=== PATIENT | female | born 1980 | race Hispanic/Latino ===

== ENCOUNTER 2018-08-31 20:32 | Emergency (ER) | payer OTHER, SELFPAY ==
--- OUTSIDE RECORDS SUMMARY | 2018-08-31 20:35 | XMS REPORT | Clinical Summary ---
:1980 Author Organization [facility] Address [address] [place] [address] Care Team Providers Name Role Phone Epifanio Brooks DO Primary Care Provider Allergies No Known Allergies Medications Medication Sig Dispensed Refills Start Date End Date Status levonorgestrel 1 each by 0 07/22/20 Discontinued (MIRENA) 20 mcg/24 intrauterine 18 hr (5 years) IUD route once. Active Problems Not on file Encounters Date Type Specialty Care Team Description 07/22/2018 Office Visit Obstetrics and Mery García Encounter for IUD Gynecology MD Oniel removal (Primary Dx) 12/17/2017 Office Visit Obstetrics Mery Carrasquillo Encounter for IUD Gynecology MD Oniel removal and reinsertion (Primary Dx) 11/17/2017 Telephone Obstetrics Augusta Dejesus Gynecology MS 11/17/2017 Telephone Obstetrics Augusta Dejesus Gynecology MS 11/09/2017 Office Visit Obstetrics Mery Carrasquillo Well woman exam Gynecology MD Oniel (Primary Dx) after 08/30/2017 Family History Medical History Relation Name Comments Hypertension Father Breast cancer Maternal Aunt Stomach cancer Maternal Aunt Bone cancer Maternal Aunt Relation Name Status Comments Father Maternal Aunt 32 yoa Maternal Aunt 53 yoa Maternal Aunt 65 yoa Social History Tobacco Use Types Packs/Day Years Used Date Never Smoker Smokeless Tobacco: Never Used Alcohol Use Drinks/Week oz/Week Comments No Sex Assigned at Date Recorded Not on file Job Start Date Occupation Industry Not on file Not on file Not on file Travel History Travel Start Travel End No recent travel history available. Last Filed Vital Signs Vital Sign Reading Time Taken Blood Pressure 112/74 07/22/2018 10:18 AM MOVIE MACHINE OPERATOR Pulse 65 07/22/2018 10:18 AM MOVIE MACHINE OPERATOR Temperature 37.1 C (98.8 F) 07/22/2018 10:18 AM MOVIE MACHINE OPERATOR Respiratory Rate - - Oxygen Saturation - - Inhaled Oxygen Concentration - - Weight 63 kg (139 lb) 07/22/2018 10:18 AM MOVIE MACHINE OPERATOR Height 157.5 cm (5' 2") 07/22/2018 10:18 AM MOVIE MACHINE OPERATOR Body Mass Index 25.42 07/22/2018 10:18 AM MOVIE MACHINE OPERATOR Plan of Treatment Health Maintenance Due Date Last Done Comments INFLUENZA VACCINE 03/03/2018 CERVICAL CANCER SCREENING 11/09/2020 11/09/2017 Procedures Procedure Name Priority Date/Time Associated Comments Diagnosis MO REMOVE INTRAUTERINE Routine 07/22/2018 10:30 Encounter for IUD Results for this DEVICE AM MOVIE MACHINE OPERATOR removal procedure are in the results section. POC , URINE Routine 12/17/2017 3:52 Encounter for IUD Results for this PM CDT removal and procedure are in reinsertion the results section. MO REMOVE INTRAUTERINE Routine 12/17/2017 3:30 Encounter for IUD Results for this DEVICE PM CDT removal and procedure are in reinsertion the results section. MO INSERT INTRAUTERINE Routine 12/17/2017 3:30 Encounter for IUD Results for this DEVICE PM CDT removal and procedure are in reinsertion the results section. GYNECOLOGIC PAP TEST Routine 11/09/2017 4:11 Well woman exam Results for this (IMAGE-GUIDED), PM CDT procedure are in LIQUID-BASED the results PREPARATION AND HUMAN section. PAPILLOMAVIRUS (HPV) HIGH-RISK DNA DETECTION WITH REFLEX TO HPV GENOTYPES 16 AND 18 POC URINALYSIS DIPSTICK Routine 11/09/2017 2:35 Well woman exam Results for this PM CDT procedure are in the results section. after 08/30/2017 Results IUD removal/insertion (07/22/2018 10:30 AM MOVIE MACHINE OPERATOR) Narrative Performed At Mery García MD 07/22/2018 10:55 AM IUD removal/insertion Date/Time: 07/22/2018 10:54 AM Performed by: Mery García MD Authorized by: Mery García MD Consent: Consent obtained:Verbal Consent given by:Patient Procedure risks and benefits discussed: yes Patient questions answered: yes Procedure: Procedure type: IUD removal Procedure Details: Strings visible: yes Removed with:Ring forceps Removed with no complications: yes Post-procedure: Patient tolerated procedure well: yes POC , urine (12/17/2017 3:52 PM CDT) test urine, POC Negative QC done Yes Specimen Urine IUD removal/insertion (12/17/2017 3:30 PM CDT) Narrative Performed At Mery García MD 12/17/20173:53 PM IUD removal/insertion Date/Time: 12/17/2017 3:48 PM Performed by: MERY GARCÍA Authorized by: MERY GARCÍA Consent: Consent obtained:Verbal and written Consent given by:Patient Procedure risks and benefits discussed: yes Patient questions answered: yes Patient agrees, verbalizes understanding, and wants to proceed: yes Procedure: Procedure type: IUD removal and IUD insertion Procedure Details: Strings visible: yes Cervix cleaned and prepped: yes Removed with:Long Bibiana Removed with no complications: yes Other reason for removal:Replacement Negative urine test: yes Speculum placed in vagina: yes Tenaculum applied to cervix: yes IUD inserted with no complications: yes IUD type:1 each levonorgestrel 17.5 mcg/24 hr (5 years) IUD Patient Supplied: Strings trimmed: yes String length (cm):3 Uterus sound depth (cm):7.5 Post-procedure: Patient tolerated procedure well: yes Gynecologic Pap Test (Image-guided), Liquid-based Preparation and Human Papillomavirus (HPV) High-risk DNA Detection With Reflex to HPV Genotypes 16 and 18 (11/09/2017 4:11 PM CDT) Diagnosis Comment [facility] Comment: NEGATIVE FOR INTRAEPITHELIAL LESION AND MALIGNANCY. REACTIVE CELLULAR CHANGES AND/OR REPAIR ARE PRESENT. Specimen adequacy CommentComment: Satisfactory for [facility] evaluation. No endocervical component is identified. Clinician provided ICD10 CommentComment: Z01.419 [facility] Performed by: CommentComment: Lindy Pimentel LABMARKY Working Supervisor (ASCP) Electronically signed by: CommentComment: Rafael Abel MD, Pathologist Comment . [facility] Note: Comment [facility] Comment: The Pap smear is a screening test designed to aid in the detection of premalignant and malignant conditions of the uterine cervix.It is not a diagnostic procedure and should not be used as the sole means of detecting cervical cancer.Both false-positive and false-negative reports do occur. Test methodology Comment [facility] Comment: This liquid based ThinPrep(R) pap test was screened with the use of an image guided system. HPV, high-risk Negative Negative [facility] 02 Comment: This high-risk HPV test detects thirteen high-risk types (16/18/31/33/35/39/45/51/52/56/58/59/68) without differentiation. Specimen Swab Narrative Performed At Performed at:01 - [facility] [address], [id number] Delivery Architect: Modesta Poe MD, Phone:[phone] Performed at: - [facility] [address], [id number] Delivery Architect: Modesta Poe MD, Phone:[phone] Specimen Comment: Source.............Cervix;Endocervix Specimen Comment: No. of containers..01 ThinPrep Vial Performing Organization Address [facility]State[facility] 02 POC urinalysis dipstick (11/09/2017 2:35 PM CDT) Color urine, POC Yellow Clarity urine, POC Clear Glucose urine, POC Negative Negative Bilirubin urine, POC Negative Negative Ketones urine, POC Negative Negative Specific gravity urine, POC </=1.005 1.005 - 1.030 Blood urine, POC Negative Negative pH urine, POC 5.0 5.0, 5.5, 6.0, 6.5, 7.0, 7.5, 8.0, 8.5 Protein urine, POC Negative Negative Urobilinogen urine, POC <2.0 <2.0 Nitrite urine, POC Negative Negative Leukocyte esterase urine, POC Negative Negative Specimen Urine after 08/30/2017 Insurance Payer Benefit Plan / Group Subscriber ID Type Phone Address ALLIED HEALTH ALLIED HEALTH INS xxxxxxxxx Commercial ([place]) Dr [address] [place] [address], [place] [address] Advance Directives Patient has advance care planning documents on file. For more information, please contact:Cristian [id number] [place] [address]
--- NOTE | 2018-08-31 21:59 | ER ---
Nurse's Notes [facility] Name: Janay Penaloza Age: 38 yrs Sex: Female : 1980 Arrival Date: 08/31/2018 Time: 20:33 Bed 19 Private MD: Diagnosis: Streptococcal pharyngitis Presentation: 08/31 20:38 Presenting complaint: Patient states: "My ears are hurting me, my throat started to aj1 hurt and I've having headaches and burning in my face since I woke up at 2" Denies fever. Transition of care: patient was not received from another setting of care. Onset of symptoms was August 31, 2018 at 02:00. Risk Assessment: Do you want to hurt yourself or someone else? Patient reports no desire to harm self or others. Initial Sepsis Screen: Does the patient meet any 2 criteria? No. Patient's initial sepsis screen is negative. Does the patient have a suspected source of infection? No. Patient's initial sepsis screen is negative. Care prior to arrival: None. 20:38 Method Of Arrival: Ambulatory aj1 20:38 Acuity: VERNON 4 aj1 Triage Assessment: 20:39 General: Appears in no apparent distress. comfortable, Behavior is calm, cooperative, aj1 appropriate for age. Pain: Complains of pain in face, left aspect of posterior pharynx and right aspect of posterior pharynx Pain currently is 9 out of 10 on a pain scale. EENT: Reports sore throat, headache. Denies nasal congestion, nasal discharge. Neuro: Level of Consciousness is awake, alert, obeys commands. Cardiovascular: Patient's skin is warm and dry. Respiratory: Airway is patent Respiratory effort is even, unlabored, Respiratory pattern is regular, symmetrical. 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 - Social history:: Smoking status: Patient/guardian denies using tobacco. - Ebola Screening: : Patient denies travel to an Ebola-affected area in the 21 days before illness onset. Screenin:00 Abuse screen: Denies threats or abuse. Nutritional screening: No deficits noted. ea Tuberculosis screening: No symptoms or risk factors identified. Fall Risk None identified. Assessment: 20:55 General: Appears uncomfortable, Behavior is calm, cooperative, appropriate for age. ea Pain: Complains of pain in face. Neuro: Level of Consciousness is awake, alert, obeys commands, Oriented to person, place, time. Cardiovascular: Heart tones S1 S2 present Patient's skin is warm and dry. Respiratory: Airway is patent Respiratory effort is even, unlabored, Respiratory pattern is regular, symmetrical, Breath sounds are clear bilaterally. GI: Abdomen is non-distended. EENT: Throat is reddened Reports sore throat, ear pain. Pt states "my face ruby" . Derm: Skin is pink, warm \\T\\ dry. 21:53 Reassessment: Patient and/or family updated on plan of care and expected duration. Pain ea level reassessed. Patient is alert, oriented x 3, equal unlabored respirations, skin warm/dry/pink. 22:14 Reassessment: Patient and/or family updated on plan of care and expected duration. Pain ea level reassessed. Patient is alert, oriented x 3, equal unlabored respirations, skin warm/dry/pink. Discharge instructions given to patient, verbalized the understanding of isntruction. Vital Signs: 20:39 BP 119 / 66; Pulse 67; Resp 18; Temp 97.4; Pulse Ox 98% on R/A; Weight 63.5 kg (R); aj1 Height 5 ft. 2 in. (157.48 cm) (R); Pain 9/10; 21:54 BP 101 / 81; Pulse 78; Resp 18; Pulse Ox 97% on R/A; ea 20:39 Body Mass Index 25.61 (63.50 kg, 157.48 cm) aj1 ED Course: 20:33 Patient arrived in ED. am2 20:39 Triage completed. aj1 20:39 Arm band placed on Patient placed in an exam room. aj1 20:41 Filiberto Murillo NP is PHCP. pm1 20:41 Fercho Mccann MD is Attending Physician. pm1 20:51 Lilian Loving RN is Primary Nurse. ea 20:59 Patient has correct armband on for positive identification. Bed in low position. Call ea light in reach. Side rails up X2. 22:15 No provider procedures requiring assistance completed. Patient did not have IV access ea during this emergency room visit. Administered Medications: No medications were administered Outcome: 21:59 Discharge ordered by MD. pm1 22:14 Condition: good ea 22:14 Discharge instructions given to patient, Instructed on discharge instructions, follow up and referral plans. medication usage, Demonstrated understanding of instructions, follow-up care, medications, Prescriptions given X 1. 22:16 Discharged to home ambulatory, with significant other. ea 22:17 Patient left the ED. ea Signatures: Marija Moseley, RN RN aj1 Filiberto Murillo NP BRANCH SERVICE LEADER pm1 Afshan Price am2 Lilian Loving RN RN tasha
--- NOTE | 2018-08-31 21:59 | EDPHYS ---
Physician Documentation [facility] Name: Janay Penaloza Age: 38 yrs Sex: Female : 1980 Arrival Date: 08/31/2018 Time: 20:33 Bed 19 Private MD: ED Physician Fercho Mccann HPI: 08/31 22:04 This 38 yrs old Female presents to ER via Ambulatory with complaints of Sore pm1 Throat, Headache, Ear Pain. 22:04 The patient presents with sore throat. The patient describes throat pain as constant, pm1 raw, scratchy. Onset: The symptoms/episode began/occurred this morning. Severity of symptoms: in the emergency department the symptoms are unchanged. Modifying factors: The symptoms are alleviated by nothing, the symptoms are aggravated by foods, swallowing, Patient's oral intake status: good unaware of sick contact. Associated signs and symptoms: Pertinent positives: earache, headache, Pertinent negatives chest pain, chills, cough, fever, nausea, shortness of breath, vomiting. The patient has not experienced similar symptoms in the past. The patient has not recently seen a physician. 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 - Social history:: Smoking status: Patient/guardian denies using tobacco. - Ebola Screening: : Patient denies travel to an Ebola-affected area in the 21 days before illness onset. ROS: 22:04 Constitutional: Negative for fever, chills, and weight loss, Eyes: Negative for injury, pm1 pain, redness, and discharge. 22:04 Neck: Negative for injury, pain, and swelling, Cardiovascular: Negative for chest pain, palpitations, and edema, Respiratory: Negative for shortness of breath, cough, wheezing, and pleuritic chest pain, Abdomen/GI: Negative for abdominal pain, nausea, vomiting, diarrhea, and constipation, Back: Negative for injury and pain, : Negative for injury, bleeding, discharge, and swelling, MS/Extremity: Negative for injury and deformity, Skin: Negative for injury, rash, and discoloration. 22:04 ENT: Positive for ear pain, sinus congestion, sinus pain, sore throat, Negative for difficulty swallowing, difficulty handling secretions, hoarseness. 22:04 Neuro: Positive for headache, Negative for numbness, tingling, weakness. Exam: 22:04 Constitutional: This is a well developed, well nourished patient who is awake, alert, pm1 and in no acute distress. Head/Face: Normocephalic, atraumatic. Eyes: Pupils equal round and reactive to light, extra-ocular motions intact. Lids and lashes normal. Conjunctiva and sclera are non-icteric and not injected. Cornea within normal limits. Periorbital areas with no swelling, redness, or edema. 22:04 Neck: Trachea midline, no thyromegaly or masses palpated, and no cervical lymphadenopathy. Supple, full range of motion without nuchal rigidity, or vertebral point tenderness. No Meningismus. Chest/axilla: Normal chest wall appearance and motion. Nontender with no deformity. No lesions are appreciated. Cardiovascular: Regular rate and rhythm with a normal S1 and S2. No gallops, murmurs, or rubs. Normal PMI, no JVD. No pulse deficits. Respiratory: Lungs have equal breath sounds bilaterally, clear to auscultation and percussion. No rales, rhonchi or wheezes noted. No increased work of breathing, no retractions or nasal flaring. Abdomen/GI: Soft, non-tender, with normal bowel sounds. No distension or tympany. No guarding or rebound. No evidence of tenderness throughout. Back: No spinal tenderness. No costovertebral tenderness. Full range of motion. Skin: Warm, dry with normal turgor. Normal color with no rashes, no lesions, and no evidence of cellulitis. MS/ Extremity: Pulses equal, no cyanosis. Neurovascular intact. Full, normal range of motion. 22:04 ENT: External ear(s): are unremarkable, Ear canal(s): are normal, TM's: are normal, Nose: is normal, Mouth: is normal, (-) tongue elevation (-) trismus no gum abnomalities, no lip abnormalities, no mucosal abnormalities, no tongue abnormalities, Posterior pharynx: Tonsils: bilaterally enlarged, with erythema, no exudate, no ulcerations, erythema, that is mild. 22:04 Neuro: Orientation: is normal, Motor: is normal, moves all fours. Vital Signs: 20:39 BP 119 / 66; Pulse 67; Resp 18; Temp 97.4; Pulse Ox 98% on R/A; Weight 63.5 kg (R); aj1 Height 5 ft. 2 in. (157.48 cm) (R); Pain 9/10; 21:54 BP 101 / 81; Pulse 78; Resp 18; Pulse Ox 97% on R/A; ea 20:39 Body Mass Index 25.61 (63.50 kg, 157.48 cm) aj1 MDM: 20:41 Patient medically screened. pm1 21:58 Data reviewed: vital signs. Data interpreted: Pulse oximetry: on room air is 97 %. pm1 Interpretation: normal. Counseling: I had a detailed discussion with the patient and/or guardian regarding: the historical points, exam findings, and any diagnostic results supporting the discharge/admit diagnosis, lab results, the need for outpatient follow up, to return to the emergency department if symptoms worsen or persist or if there are any questions or concerns that arise at home. 08/31 21:09 Order name: Flu; Complete Time: 21:58 pm1 08/31 21:09 Order name: Strep; Complete Time: 21:58 pm1 Administered Medications: No medications were administered Disposition: 23:02 Co-signature as Attending Physician, Fercho Mccann MD. rn Disposition: 08/31/18 21:59 Discharged to Home. Impression: Streptococcal pharyngitis. - Condition is Stable. - Discharge Instructions: Strep Throat. - Prescriptions for Amoxicillin 500 mg Oral Capsule - take 1 capsule by ORAL route every 8 hours for 10 days; 30 tablet. - Medication Reconciliation Form, Thank You Letter, Antibiotic Education, Work release form form. - Follow up: Emergency Department; When: As needed; Reason: Worsening of condition. Follow up: Private Physician; When: 2 - 3 days; Reason: Recheck today's complaints, Continuance of care, Re-evaluation by your physician. - Problem is new. - Symptoms have improved. Signatures: Dispatcher [employer] EDMarija Mae RN RN aj1 Fercho Mccann MD MD rn Marinas, Patrick, FAUSTO ENVIRONMENTAL COORDINATOR pm1 Lilian Loving RN RN ea Corrections: (The following items were deleted from the chart) 22:17 21:59 08/31/2018 21:59 Discharged to Home. Impression: Streptococcal pharyngitis. ea Condition is Stable. Forms are Medication Reconciliation Form, Thank You Letter, Antibiotic Education, Prescription Opioid Use. Follow up: Emergency Department; When: As needed; Reason: Worsening of condition. Follow up: Private Physician; When: 2 - 3 days; Reason: Recheck today's complaints, Continuance of care, Re-evaluation by your physician. Problem is new. Symptoms have improved. pm1
== END 2018-08-31 22:17 | disposition home or self-care (01) ==
LOC: ER 20:32
DX: J02.0 Streptococcal pharyngitis (principal)
CPT/HCPCS: 87081; 87804; 99282

== ENCOUNTER 2018-10-06 14:23 | Emergency (ER) | payer OTHER ==
--- OUTSIDE RECORDS SUMMARY | 2018-10-06 14:25 | XMS REPORT | Clinical Summary ---
:1980 Author Organization [facility] Address [address] [place] [address] Care Team Providers Name Role Phone Epifanio [...] Dx) 11/17/2017 Telephone Obstetrics Augusta Dejesus Gynecology ID 11/17/2017 Telephone Obstetrics Augusta Dejesus Gynecology ID 11/09/2017 Office Visit Obstetrics Mery Carrasquillo Well woman exam Gynecology MD Oniel (Primary Dx) after 10/05/2017 Family History Medical History Relation Name Comments [...] Taken Blood Pressure 112/74 07/22/2018 10:18 AM PREVENTIVE MAINTENANCE COORDINATOR Pulse 65 07/22/2018 10:18 AM PREVENTIVE MAINTENANCE COORDINATOR Temperature 37.1 C (98.8 F) 07/22/2018 10:18 AM PREVENTIVE MAINTENANCE COORDINATOR Respiratory Rate - - Oxygen Saturation - - Inhaled Oxygen Concentration - - Weight 63 kg (139 lb) 07/22/2018 10:18 AM PREVENTIVE MAINTENANCE COORDINATOR Height 157.5 cm (5' 2") 07/22/2018 10:18 AM PREVENTIVE MAINTENANCE COORDINATOR Body Mass Index 25.42 07/22/2018 10:18 AM PREVENTIVE MAINTENANCE COORDINATOR Plan of Treatment Health Maintenance Due Date Last Done Comments INFLUENZA VACCINE 03/03/2018 CERVICAL CANCER SCREENING 11/09/2020 11/09/2017 Procedures Procedure Name Priority Date/Time Associated Comments Diagnosis [place] REMOVE INTRAUTERINE Routine 07/22/2018 10:30 Encounter for IUD Results for this DEVICE AM PREVENTIVE MAINTENANCE COORDINATOR removal procedure are in the results section. POC , URINE Routine 12/17/2017 3:52 Encounter for IUD Results for this PM CDT removal and procedure are in reinsertion the results section. KS REMOVE INTRAUTERINE Routine 12/17/2017 3:30 Encounter for IUD Results for this DEVICE PM CDT removal and procedure are in reinsertion the results section. KS INSERT INTRAUTERINE Routine 12/17/2017 3:30 Encounter for [...] procedure are in the results section. after 10/05/2017 Results IUD removal/insertion (07/22/2018 10:30 AM PREVENTIVE MAINTENANCE COORDINATOR) Narrative Performed At Mery García MD 07/22/2018 10:55 AM IUD removal/insertion Date/Time: 07/22/2018 10:54 AM Performed by: Mery García MD Authorized by: Mery Garcaí MD Consent: Consent obtained:Verbal Consent given by:Patient [...] [facility] Performed by: CommentComment: Lindy Pimentel LABMARKY Medical Biller (ASCP) Electronically signed by: CommentComment: Rafael Abel [...] Swab Narrative Performed At Performed at:01 - [facility] [place] [place] [facility] [address] [place], [id number] Metal Bench Patternmaker: Modesta Poe MD, Phone:[phone] Performed at: - [facility] [place] [place] [address] [place], [id number] Metal Bench Patternmaker: Modesta Poe MD, Phone:[phone] Specimen Comment: Source.............Cervix;Endocervix Specimen Comment: No. of containers..01 ThinPrep Vial Performing Organization Address City/State[facility] 02 POC urinalysis dipstick (11/09/2017 [...] urine, POC Negative Negative Specimen Urine after 10/05/2017 Insurance Payer Benefit Plan / Group Subscriber ID Type Phone Address ALLIED HEALTH ALLIED HEALTH INS xxxxxxxxx Commercial ([place]) Dr [address] [place] [address], [place] [address] Advance Directives Patient has advance care planning documents on file. For more information, please contact:Cristian [id number] [place] [address]
[2018-10-06 15:23] LABS: Absolute Lymphocytes (CBC) 1.7 K/uL (0.7-4.9); Absolute Monocytes 0.6 K/uL (0.1-1.3); Absolute Neutrophil 5.1 K/uL (1.8-8.0); Basophils % 0.4 % (0-1.3); Eosinophils % 1.2 % (0-4.4); Hematocrit 41.2 % (36.0-45.0); Lymphocytes % 22.9 % (15.3-44.8); MPV 9.7 fL (7.6-11.3); Monocytes % 8.6 % (3.3-12.3); RBC Red Blood Cell Count 4.58 M/uL (3.86-4.86)
[2018-10-06 16:01] LABS: BUN Blood Urea Nitrogen 13 mg/dL (7-18); Bicarbonate 26 mmol/L (21-32); Glucose Level 96 mg/dL (74-106); HCG, Quantitative 14196 mIU/mL (1-3); Potassium 3.7 mmol/L (3.5-5.1); Sodium Level 141 mmol/L (136-145)
--- NOTE | 2018-10-06 17:05 | ER ---
Nurse's Notes [facility] Name: Janay Penaloza Age: 38 yrs Sex: Female : 1980 Arrival Date: 10/06/2018 Time: 14:26 Bed 20 Private MD: Diagnosis: Threatened Presentation: 10/06 14:29 Presenting complaint: Patient states: i started bleeding this morning and my last tw2 period was 08/25/18 and i took a home pg test yesterday and it was positive, denies abd pain /cramping. Transition of care: patient was not received from another setting of care. Onset of symptoms was October 06, 2018. Risk Assessment: Do you want to hurt yourself or someone else? Patient reports no desire to harm self or others. Initial Sepsis Screen: Does the patient meet any 2 criteria? No. Patient's initial sepsis screen is negative. Does the patient have a suspected source of infection? No. Patient's initial sepsis screen is negative. Care prior to arrival: None. 14:29 Method Of Arrival: Ambulatory tw2 14:29 Acuity: VERNON 3 tw2 Triage Assessment: 14:31 General: Appears in no apparent distress. well groomed, Behavior is calm, cooperative, tw2 appropriate for age. Pain: Denies pain. : Reports vaginal bleeding that is brown, light flow. 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 - Social history:: Smoking status: Patient/guardian denies using tobacco. - Ebola Screening: : Patient denies travel to an Ebola-affected area in the 21 days before illness onset. Screenin:19 Abuse screen: Denies threats or abuse. Denies injuries from another. Abuse screen:. ls4 Nutritional screening: No deficits noted. Tuberculosis screening: No symptoms or risk factors identified. Fall Risk None identified. Assessment: 15:20 General: Appears in no apparent distress. Behavior is calm, cooperative. Neuro: No ls4 deficits noted. Cardiovascular: No deficits noted. Respiratory: No deficits noted. : Urine is clear, Reports SPOTTING BLEEDING. 16:04 Reassessment: Patient appears in no apparent distress at this time. Patient and/or ls4 family updated on plan of care and expected duration. Pain level reassessed. Patient is alert, oriented x 3, equal unlabored respirations, skin warm/dry/pink. 17:01 Reassessment: Patient appears in no apparent distress at this time. Patient and/or ls4 family updated on plan of care and expected duration. Pain level reassessed. Patient is alert, oriented x 3, equal unlabored respirations, skin warm/dry/pink. Vital Signs: 14:30 BP 114 / 78; Pulse 72; Resp 17; Temp 96.9(TE); Pulse Ox 100% on R/A; Weight 61.69 kg tw2 (R); Height 5 ft. 2 in. (157.48 cm); Pain 0/10; 17:00 BP 112 / 70; Pulse 70; Resp 16; Temp 98.2(O); Pulse Ox 100% on R/A; Pain 0/10; ls4 17:00 BP 116 / 68; Pulse 71; Resp 16; Temp 97.4(O); Pulse Ox 99% on R/A; Pain 0/10; ls4 14:30 Body Mass Index 24.87 (61.69 kg, 157.48 cm) tw2 ED Course: 14:26 Patient arrived in ED. mr 14:30 Triage completed. tw2 14:30 Arm band placed on. tw2 14:35 Anirudh Ulloa PA is PHCP. jr8 14:35 Tj Méndez MD is Attending Physician. jr8 14:39 Dary Michelle, STUART is Primary Nurse. ls4 15:19 Patient has correct armband on for positive identification. Placed in gown. Bed in low ls4 position. Call light in reach. Side rails up X 1. Pulse ox on. NIBP on. Warm blanket given. Verbal reassurance given. 15:22 No provider procedures requiring assistance completed. Initial lab(s) drawn, by tx, ls4 sent to lab. Inserted saline lock: 20 gauge 22 gauge in right antecubital area, using aseptic technique. Blood collected. Patient maintains SpO2 saturation greater than 95% on room air. 16:57 US Transvaginal Ob In Process Unspecified. EDMS 17:34 IV discontinued, intact, bleeding controlled, No redness/swelling at site. Pressure ls4 dressing applied. Administered Medications: No medications were administered Outcome: 17:05 Discharge ordered by . dejon 17:33 Discharged to home ambulatory, with family. ls4 17:33 Condition: stable 17:33 Discharge instructions given to patient, family, Instructed on discharge instructions, follow up and referral plans. medication usage, safety practices, Demonstrated understanding of instructions, follow-up care, medications. 17:35 Patient left the ED. ls4 Signatures: Dispatcher [employer] EDOR Rosa Nuñez mr HernandezAnirudh abraham PA PA jr8 Ely Burgos, RN RN tw2 Dary Michelle, RN RN ls4
--- NOTE | 2018-10-06 17:05 | EDPHYS ---
Physician Documentation [facility] Name: Janay Penaloza Age: 38 yrs Sex: Female : 1980 Arrival Date: 10/06/2018 Time: 14:26 Bed 20 Private MD: ED Physician Tj Méndez HPI: 10/06 16:49 This 38 yrs old Female presents to ER via Ambulatory with complaints of jr8 Vaginal Bleeding, Unknown wks . 16:49 The patient presents with vaginal bleeding that is spotting. Onset: The jr8 symptoms/episode began/occurred acutely, today. Modifying factors: The symptoms are alleviated by nothing, the symptoms are aggravated by nothing. Associated signs and symptoms: The patient has no apparent associated signs or symptoms. Severity of symptoms: At their worst the symptoms were mild, in the emergency department the symptoms have resolved, and did so just prior to arrival. The patient has not experienced similar symptoms in the past. The patient has not recently seen a physician. 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 - Social history:: Smoking status: Patient/guardian denies using tobacco. - Ebola Screening: : Patient denies travel to an Ebola-affected area in the 21 days before illness onset. ROS: 16:49 Eyes: Negative for injury, pain, redness, and discharge, ENT: Negative for injury, jr8 pain, and discharge, Neck: Negative for injury, pain, and swelling, Cardiovascular: Negative for chest pain, palpitations, and edema, Respiratory: Negative for shortness of breath, cough, wheezing, and pleuritic chest pain, Abdomen/GI: Negative for abdominal pain, nausea, vomiting, diarrhea, and constipation, Back: Negative for injury and pain, MS/Extremity: Negative for injury and deformity, Skin: Negative for injury, rash, and discoloration, Neuro: Negative for headache, weakness, numbness, tingling, and seizure. 16:49 : Positive for vaginal bleeding, Negative for urinary symptoms, vaginal discharge, vaginal itching. Exam: 16:49 Eyes: Pupils equal round and reactive to light, extra-ocular motions intact. Lids and jr8 lashes normal. Conjunctiva and sclera are non-icteric and not injected. Cornea within normal limits. Periorbital areas with no swelling, redness, or edema. ENT: Nares patent. No nasal discharge, no septal abnormalities noted. Tympanic membranes are normal and external auditory canals are clear. Oropharynx with no redness, swelling, or masses, exudates, or evidence of obstruction, uvula midline. Mucous membranes moist. Neck: Trachea midline, no thyromegaly or masses palpated, and no cervical lymphadenopathy. Supple, full range of motion without nuchal rigidity, or vertebral point tenderness. No Meningismus. Cardiovascular: Regular rate and rhythm with a normal S1 and S2. No gallops, murmurs, or rubs. Normal PMI, no JVD. No pulse deficits. Respiratory: Lungs have equal breath sounds bilaterally, clear to auscultation and percussion. No rales, rhonchi or wheezes noted. No increased work of breathing, no retractions or nasal flaring. Abdomen/GI: Soft, non-tender, with normal bowel sounds. No distension or tympany. No guarding or rebound. No evidence of tenderness throughout. Back: No spinal tenderness. No costovertebral tenderness. Full range of motion. Skin: Warm, dry with normal turgor. Normal color with no rashes, no lesions, and no evidence of cellulitis. MS/ Extremity: Pulses equal, no cyanosis. Neurovascular intact. Full, normal range of motion. Neuro: Awake and alert, GCS 15, oriented to person, place, time, and situation. Cranial nerves II-XII grossly intact. Motor strength 5/5 in all extremities. Sensory grossly intact. Cerebellar exam normal. Normal gait. Vital Signs: 14:30 BP 114 / 78; Pulse 72; Resp 17; Temp 96.9(TE); Pulse Ox 100% on R/A; Weight 61.69 kg tw2 (R); Height 5 ft. 2 in. (157.48 cm); Pain 0/10; 17:00 BP 112 / 70; Pulse 70; Resp 16; Temp 98.2(O); Pulse Ox 100% on R/A; Pain 0/10; ls4 17:00 BP 116 / 68; Pulse 71; Resp 16; Temp 97.4(O); Pulse Ox 99% on R/A; Pain 0/10; ls4 14:30 Body Mass Index 24.87 (61.69 kg, 157.48 cm) tw2 MDM: 14:53 Patient medically screened. [facility] 17:04 Data reviewed: vital signs, nurses notes, lab test result(s), radiologic studies, [facility] ultrasound, and as a result, I will discharge patient. Data interpreted: Pulse oximetry: on room air is 100 %. Interpretation: normal. Counseling: I had a detailed discussion with the patient and/or guardian regarding: the historical points, exam findings, and any diagnostic results supporting the discharge/admit diagnosis, lab results, radiology results, the need for outpatient follow up, an OB/Gyne specialist, to return to the emergency department if symptoms worsen or persist or if there are any questions or concerns that arise at home. 10/06 14:42 Order name: Urine Dipstick--Ancillary (enter results) [facility] 10/06 14:42 Order name: Urine --Ancillary (enter results) [facility] 10/06 15:04 Order name: Quantitative Hcg [facility] 10/06 15:04 Order name: Abo/rh Typing; Complete Time: 15:57 [facility] 10/06 15:04 Order name: Basic Metabolic Panel [facility] 10/06 15:04 Order name: CBC with Diff; Complete Time: 15:47 [facility] 10/06 14:42 Order name: Urine Dipstick-Ancillary (obtain specimen); Complete Time: 14:42 [facility] 10/06 14:42 Order name: Urine Test (obtain specimen); Complete Time: 14:42 [facility] 10/06 15:04 Order name: IV Saline Lock; Complete Time: 15:18 [facility] 10/06 15:04 Order name: Labs collected and sent; Complete Time: 15:18 [facility] 10/06 15:04 Order name: NPO; Complete Time: 15:18 [facility] 10/06 15:04 Order name: HCG, Quantitative; Complete Time: 16:29 EDDE 10/06 15:04 Order name: Basic Metabolic Panel; Complete Time: 16:29 EDMS 10/06 16:30 Order name: US Transvaginal Ob; Complete Time: 17:14 jr8 Administered Medications: No medications were administered Disposition: 10/07 07:26 Co-signature as Attending Physician, Tj Méndez MD I agree with the assessment and kdr plan of care. Disposition: 10/06/18 17:05 Discharged to Home. Impression: Threatened . - Condition is Stable. - Discharge Instructions: Threatened Miscarriage, Vaginal Bleeding During , First Trimester, Pelvic Rest. - Medication Reconciliation Form, Thank You Letter, Antibiotic Education, Prescription Opioid Use form. - Follow up: Private Physician; When: 2 - 3 days; Reason: Recheck today's complaints, Continuance of care, Re-evaluation by your physician. - Problem is new. - Symptoms have improved. Signatures: Dispatcher [employer] [facility] Tj Méndez MD MD kdr Martinez, Eric em1 Anirudh Ulloa PA PA jr8 Ely Burgos RN RN tw2 Dary Michelle RN RN ls4 Corrections: (The following items were deleted from the chart) 10/06 17:35 17:05 10/06/2018 17:05 Discharged to Home. Impression: Threatened . Condition ls4 is Stable. Forms are Medication Reconciliation Form, Thank You Letter, Antibiotic Education, Prescription Opioid Use. Follow up: Private Physician; When: 2 - 3 days; Reason: Recheck today's complaints, Continuance of care, Re-evaluation by your physician. Problem is new. Symptoms have improved. jr8
--- NOTE | 2018-10-06 17:12 | RAD REPORT ---
EXAM DESCRIPTION: US - Transvaginal OB - 10/06/2018 4:57 pm CLINICAL HISTORY: with vaginal bleeding COMPARISON: None. FINDINGS: The uterus 9 x 5 x 5 centimeters. A gestational sac is present within the endometrium. Wi thin this is a yolk sac and pole with a crown-rump length 3 millimeters. Cardiac activity 86 be ats per minute The ovaries are normal in size and echotexture An adnexal mass is not noted. No significant free fluid is seen. IMPRESSION: Single live intrauterine with an estimated gestational age 5 weeks 6 days MARIA DOLORES 06/02/2019 Cardiac activity 86 beats per minute
[2018-10-06 19:16] LABS: Urine Blood 2+ (NEG); Urine Glucose NEGATIVE (NEG); Urine Protein NEGATIVE (NEG)
== END 2018-10-06 17:35 | disposition home or self-care (01) ==
LOC: ER 14:23
DX: O20.0 Threatened abortion (principal); Z3A.01 Less than 8 weeks gestation of pregnancy
CPT/HCPCS: 36415; 76817; 80048; 81003; 81025; 84702; 85025; 86900; 86901; 99284

== ENCOUNTER 2018-12-20 20:38 | Emergency (ER) | payer OTHER ==
--- OUTSIDE RECORDS SUMMARY | 2018-12-20 20:41 | XMS REPORT | Clinical Summary ---
:1980 Author Organization [place] [address] Care Team Providers Name Role Phone Epifanio [...] IUD Gynecology MD Oniel removal (Primary Dx) after 12/19/2017 Family History Medical History Relation Name Comments [...] Taken Blood Pressure 112/74 07/22/2018 10:18 AM FEED MILL TENDER Pulse 65 07/22/2018 10:18 AM FEED MILL TENDER Temperature 37.1 C (98.8 F) 07/22/2018 10:18 AM FEED MILL TENDER Respiratory Rate - - Oxygen Saturation - - Inhaled Oxygen Concentration - - Weight 63 kg (139 lb) 07/22/2018 10:18 AM FEED MILL TENDER Height 157.5 cm (5' 2") 07/22/2018 10:18 AM FEED MILL TENDER Body Mass Index 25.42 07/22/2018 10:18 AM FEED MILL TENDER Plan of Treatment Health Maintenance Due Date Last Done Comments INFLUENZA VACCINE 03/03/2019 CERVICAL CANCER SCREENING 11/09/2020 11/09/2017 Procedures Procedure Name Priority Date/Time Associated Comments Diagnosis GA REMOVE Routine 07/22/2018 10:30 Encounter for IUD Results for this INTRAUTERINE DEVICE AM [employer]ED MILL TENDER removal procedure are in the results section. after 12/19/2017 Results IUD removal/insertion (07/22/2018 10:30 AM FEED MILL TENDER) Narrative Performed At Mery García MD 07/22/2018 [...] yes Post-procedure: Patient tolerated procedure well: yes after 12/19/2017 Insurance Payer Benefit Plan / Subscriber ID Effective Dates Phone Address Type Group ALLIED HEALTH ALLIED HEALTH xxxxxxxxx 2017-Present Commercial INS (Home) [address] [place] [id number] Advance Directives Patient has advance care planning documents on file. For more information, please contact:[place] [address]
--- NOTE | 2018-12-20 22:40 | EDPHYS ---
Physician Documentation [facility] Name: Janay Penaloza Age: 38 yrs Sex: Female : 1980 Arrival Date: 12/20/2018 Time: 20:40 Bed 9 Private MD: ED Physician Aldo Ospina HPI: 12/20 21:15 This 38 yrs old Female presents to ER via Ambulatory with complaints of Sore cp Throat, Ear Pain. 21:15 The patient presents with sore throat. The patient describes throat pain as constant. cp Onset: The symptoms/episode began/occurred today. Severity of symptoms: in the emergency department the symptoms are unchanged, despite home interventions. Associated signs and symptoms: Pertinent positives: earache, slight cough, Pertinent negatives diarrhea, fever, headache, vomiting. 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 - Social history:: Smoking status: Patient/guardian denies using tobacco. - Ebola Screening: : Patient denies travel to an Ebola-affected area in the 21 days before illness onset No symptoms or risks identified at this time. ROS: 21:20 Constitutional: Negative for body aches, chills, fever, poor PO intake. cp 21:20 Eyes: Negative for injury, pain, redness, and discharge. cp 21:20 ENT: Positive for ear pain, sore throat, Negative for drainage from ear(s), difficulty swallowing, difficulty handling secretions. 21:20 Neck: Negative for stiffness. 21:20 Respiratory: Positive for slight cough, Negative for shortness of breath, wheezing. 21:20 Abdomen/GI: Negative for abdominal pain, vomiting, diarrhea, constipation. 21:20 : Negative for urinary symptoms, vaginal bleeding. 21:20 Skin: Negative for rash. 21:20 Neuro: Negative for dizziness, headache, weakness. 21:20 All other systems are negative. Exam: 21:25 Constitutional: The patient appears in no acute distress, alert, awake, non-toxic, well cp developed, well nourished. 21:25 Head/Face: Normocephalic, atraumatic. cp 21:25 Eyes: Periorbital structures: appear normal, Conjunctiva: normal, no exudate, no injection, Lids and lashes: appear normal, bilaterally. 21:25 ENT: External ear(s): are unremarkable, Ear canal(s): are normal, clear, TM's: bulging, is not appreciated, bilaterally, erythema, that is mild, on the left, Nose: is normal, Mouth: Lips: moist, Oral mucosa: moist, Posterior pharynx: Airway: no evidence of obstruction, patent, Tonsils: with erythema, no enlargement, no exudate, Uvula: midline, swelling, is not appreciated, erythema, that is mild, exudate, is not appreciated, Voice: is normal. 21:25 Neck: ROM/movement: is normal, is supple, without pain, no range of motions limitations, no meningismus, no nuchal rigidity, Lymph nodes: no appreciated lymphadenopathy. 21:25 Chest/axilla: Inspection: normal. 21:25 Cardiovascular: Rate: normal. 21:25 Respiratory: the patient does not display signs of respiratory distress, Respirations: normal, no use of accessory muscles, no retractions, no splinting, no tachypnea. 21:25 Abdomen/GI: Inspection: gravid appearance, is noted. Vital Signs: 21:00 BP 106 / 67; Pulse 87; Resp 18; Temp 97.4; Pulse Ox 97% on R/A; Weight 63.5 kg; Height ed1 5 ft. 2 in. (157.48 cm); Pain 10/10; 23:08 BP 103 / 65; Pulse 79; Resp 16 S; Temp 97.6(O); Pulse Ox 100% on R/A; bb 21:00 Body Mass Index 25.61 (63.50 kg, 157.48 cm) ed1 MDM: 21:13 Patient medically screened. cp 21:25 Differential diagnosis: epiglottitis, group A strep tonsillitis, ann-marie's angina, cp mononucleosis, peritonsillar abscess tonsillitis, uvulitis. 22:35 Data reviewed: vital signs, nurses notes, lab test result(s). cp 22:35 Counseling: I had a detailed discussion with the patient and/or guardian regarding: the cp historical points, exam findings, and any diagnostic results supporting the discharge/admit diagnosis, lab results, to return to the emergency department if symptoms worsen or persist or if there are any questions or concerns that arise at home. ED course: VSS. IM Bicillin given vs 10 day course oral antibiotics. Will discharge to home for continued monitoring. 12/20 21:02 Order name: Strep; Complete Time: 21:54 ed1 12/20 21:54 Interpretation: GP A STREP SC \T\nbsp; GROUP A STREP SCREEN-- \T\nbsp; \T\nbsp; POSITIVE; cp Reviewed. Administered Medications: 22:54 Drug: Bicillin L-A 1.2 million units Route: IM; Site: right ventrogluteal; bb 23:15 Follow up: Response: No adverse reaction bb Disposition: 12/20/18 22:39 Discharged to Home. Impression: Streptococcal pharyngitis. - Condition is Stable. - Discharge Instructions: Strep Throat. - Medication Reconciliation Form, Thank You Letter, Antibiotic Education, Prescription Opioid Use form. - Follow up: Private Physician; When: 2 - 3 days; Reason: Worsening of condition. - Problem is new. - Symptoms are unchanged. Addendum: 12/22/2018 06:39 Co-signature as Attending Physician, Aldo Ospina MD I agree with the assessment and c klein plan of care. Signatures: Dispatcher [employer] EDOH Aldo Ospina MD MD cha Ballard, Brenda RN RN bb Luyc Rod RN RN ed1 Aldo Valiente PA PA cp Corrections: (The following items were deleted from the chart) 12/20 23:17 22:39 12/20/2018 22:39 Discharged to Home. Impression: Streptococcal pharyngitis. bb Condition is Stable. Forms are Medication Reconciliation Form, Thank You Letter, Antibiotic Education, Prescription Opioid Use. Follow up: Private Physician; When: 2 - 3 days; Reason: Worsening of condition. Problem is new. Symptoms are unchanged. cp
--- NOTE | 2018-12-20 22:40 | ER ---
Nurse's Notes [facility] Name: Janay Penaloza Age: 38 yrs Sex: Female : 1980 Arrival Date: 12/20/2018 Time: 20:40 Bed 9 Private MD: Diagnosis: Streptococcal pharyngitis Presentation: 12/20 20:59 Presenting complaint: Patient states: My throat started hurting around 4:30 this ed1 afternoon. I took Tylenol but my ears hurt too. Transition of care: patient was not received from another setting of care. Onset of symptoms was December 20, 2018. Risk Assessment: Do you want to hurt yourself or someone else? Patient reports no desire to harm self or others. Initial Sepsis Screen: Does the patient meet any 2 criteria? No. Patient's initial sepsis screen is negative. Does the patient have a suspected source of infection? No. Patient's initial sepsis screen is negative. Care prior to arrival: Medication(s) given: Tylenol. 20:59 Method Of Arrival: Ambulatory ed1 20:59 Acuity: VERNON 4 ed1 Triage Assessment: 21:00 General: Appears in no apparent distress. Behavior is calm, cooperative. Pain: ed1 Complains of pain in right ear and left ear, throat. EENT: Reports pain when swallowing. 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 - Social history:: Smoking status: Patient/guardian denies using tobacco. - Ebola Screening: : Patient denies travel to an Ebola-affected area in the 21 days before illness onset No symptoms or risks identified at this time. Screenin:30 Abuse screen: Denies threats or abuse. Denies injuries from another. Nutritional aj1 screening: No deficits noted. Tuberculosis screening: No symptoms or risk factors identified. Assessment: 21:30 General: Appears in no apparent distress. comfortable, Behavior is calm, cooperative, aj1 appropriate for age. Pain: Complains of pain in left aspect of posterior pharynx and right aspect of posterior pharynx. Neuro: Level of Consciousness is awake, alert, obeys commands. Cardiovascular: Patient's skin is warm and dry. Respiratory: Airway is patent Respiratory effort is even, unlabored, Respiratory pattern is regular, symmetrical, Breath sounds are clear bilaterally. GI: No signs and/or symptoms were reported involving the gastrointestinal system. : No signs and/or symptoms were reported regarding the genitourinary system. EENT: Throat is reddened bilaterally. Derm: No signs and/or symptoms reported regarding the dermatologic system. Skin is pink, warm \T\ dry. normal. Musculoskeletal: No signs and/or symptoms reported regarding the musculoskeletal system. Circulation, motion, and sensation intact. 23:16 Reassessment: Patient and/or family updated on plan of care and expected duration. Pain bb level reassessed. Patient is alert, oriented x 3, equal unlabored respirations, skin warm/dry/pink. pt verbalized understanding of and agrees to plan of care discharge instructions given pt ambulated with steady gait to exit accompanied by spouse. Vital Signs: 21:00 BP 106 / 67; Pulse 87; Resp 18; Temp 97.4; Pulse Ox 97% on R/A; Weight 63.5 kg; Height ed1 5 ft. 2 in. (157.48 cm); Pain 10/10; 23:08 BP 103 / 65; Pulse 79; Resp 16 S; Temp 97.6(O); Pulse Ox 100% on R/A; bb 21:00 Body Mass Index 25.61 (63.50 kg, 157.48 cm) ed1 ED Course: 20:40 Patient arrived in ED. ds1 21:00 Triage completed. ed1 21:00 Arm band placed on right wrist. Patient placed in waiting room, Patient notified of ed1 wait time. 21:12 Aldo Valiente PA is PHCP. cp 21:13 Aldo Ospina MD is Attending Physician. cp 21:16 Marija Moseley, RN is Primary Nurse. aj1 21:30 Patient has correct armband on for positive identification. aj1 21:30 No provider procedures requiring assistance completed. aj1 23:17 Patient did not have IV access during this emergency room visit. bb Administered Medications: 22:54 Drug: Bicillin L-A 1.2 million units Route: IM; Site: right ventrogluteal; bb 23:15 Follow up: Response: No adverse reaction bb Outcome: 22:39 Discharge ordered by MD. cp 23:17 Discharged to home ambulatory, with family. bb 23:17 Condition: stable 23:17 Discharge instructions given to patient, Instructed on discharge instructions, follow up and referral plans. medication usage, Demonstrated understanding of instructions, follow-up care, medications, Prescriptions given X 1. 23:17 Patient left the ED. bb Signatures: Marija Moseley RN RN aj1 Lena Cisneros ds1 Airam Odom RN RN bb Lucy Rod RN RN ed1 Aldo Valiente, CANELO PA cp
[2018-12-20] MEDS ORDERED: PEN G BENZ LA 1.2MU/2ML SYRINGE IM ONE (23:00)
== END 2018-12-20 23:17 | disposition home or self-care (01) ==
LOC: ER 20:38
DX: O26.892 Other specified pregnancy related conditions, second trimester (principal); J02.0 Streptococcal pharyngitis; Z3A.16 16 weeks gestation of pregnancy
CPT/HCPCS: 87081; 96372; 99283; J0561

== ENCOUNTER 2018-12-29 20:12 | Emergency (ER) | payer OTHER ==
--- NOTE | 2018-12-29 21:04 | EDPHYS ---
Physician Documentation [facility] Name: Janay Penaloza Age: 38 yrs Sex: Female : 1980 Arrival Date: 12/29/2018 Time: 20:14 Bed 17 Private MD: ED Physician Fercho Mccann HPI: 12/29 20:56 This 38 yrs old Female presents to ER via Ambulatory with complaints of rn Breathing Difficulty. 20:56 The patient has shortness of breath at rest. Onset: The symptoms/episode began/occurred rn 1 week(s) ago. Duration: The symptoms are intermittent. The patient's shortness of breath has no apparent modifying factors, is aggravated by nothing. Severity of symptoms: At their worst the symptoms were mild in the emergency department the symptoms have improved. The patient has experienced similar episodes in the past. REports 18 weeks , recently seen here, diagnosed with strep, given abx shot and oral abx, having intermittent nasal congestion and trouble breathing through nose, no drainage or bleeding, no trauma. No trouble breathing from lungs or thorax, no chest pain, no cough.. 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 - Social history:: Smoking status: Patient/guardian denies using tobacco, Patient/guardian denies using alcohol, street drugs. - Ebola Screening: : Patient negative for fever greater than or equal to 101.5 degrees Fahrenheit, and additional compatible Ebola Virus Disease symptoms Patient denies exposure to infectious person Patient denies travel to an Ebola-affected area in the 21 days before illness onset No symptoms or risks identified at this time. - Family history:: not pertinent. - Hospitalizations: : No recent hospitalization is reported. ROS: 20:59 Constitutional: Negative for fever, chills, and weight loss, Eyes: Negative for injury, rn pain, redness, and discharge, ENT: + nasal congestion Neck: Negative for injury, pain, and swelling, Cardiovascular: Negative for chest pain, palpitations, and edema, Respiratory: Negative for shortness of breath, cough, wheezing, and pleuritic chest pain, Abdomen/GI: Negative for abdominal pain, nausea, vomiting, diarrhea, and constipation, : Negative for injury, bleeding, discharge, and swelling, MS/Extremity: Negative for injury and deformity, Skin: Negative for injury, rash, and discoloration, Neuro: Negative for headache, weakness, numbness, tingling, and seizure. Exam: 20:59 Constitutional: This is a well developed, well nourished patient who is awake, alert, rn and in no acute distress. Ambulatory to room without assistance or difficulty. Head/Face: Normocephalic, atraumatic. Eyes: Pupils equal round and reactive to light, extra-ocular motions intact. Lids and lashes normal. Conjunctiva and sclera are non-icteric and not injected. Cornea within normal limits. Periorbital areas with no swelling, redness, or edema. ENT: + swollen bilateral turbinates, no stridor, no oral swelling Respiratory: No increased work of breathing, speaking full sentences. MS/ Extremity: Pulses equal, no cyanosis. Neurovascular intact. Full, normal range of motion. Equal circumference. Neuro: Awake and alert, GCS 15, oriented to person, place, time, and situation. Cranial nerves II-XII grossly intact. Motor strength 5/5 in all extremities. Sensory grossly intact. Cerebellar exam normal. Normal gait. Vital Signs: 20:26 BP 120 / 73; Pulse 81; Resp 18; Temp 98.3; Pulse Ox 99% on R/A; Weight 65.77 kg; Height ch 5 ft. 2 in. (157.48 cm); Pain 0/10; 20:26 Body Mass Index 26.52 (65.77 kg, 157.48 cm) [facility]: 20:26 Patient medically screened. rn 20:59 Differential diagnosis: swollen turbinates, allergies. Data reviewed: vital signs, rn nurses notes, and as a result, I will discharge patient. Counseling: I had a detailed discussion with the patient and/or guardian regarding: the historical points, exam findings, and any diagnostic results supporting the discharge/admit diagnosis, the need for outpatient follow up, to return to the emergency department if symptoms worsen or persist or if there are any questions or concerns that arise at home. Special discussion: I discussed with the patient/guardian in detail that at this point there is no indication for admission to the hospital. It is understood, however, that if the symptoms persist or worsen the patient needs to return immediately for re-evaluation. ED course: Pt well appearing, no hypoxia, most likely seasonal allergies or nasal congestion, recommend flonase for local therapy, and pcp/OB f/u. Pt specifically denies chest pain/cough/sob from lungs.. Administered Medications: No medications were administered Disposition: 12/29/18 21:03 Discharged to Home. Impression: Nasal congestion. - Condition is Stable. - Discharge Instructions: Allergies, Adult, Nasal Allergies. - Medication Reconciliation Form, Thank You Letter, Antibiotic Education, Prescription Opioid Use form. - Follow up: Private Physician; When: As needed; Reason: Recheck today's complaints, Re-evaluation by your physician. - Problem is new. - Symptoms have improved. Signatures: Zoë Cunningham, RN Fercho Hernandez ch, MD MD rn Roque, Raymond, RN RN rr5 Corrections: (The following items were deleted from the chart) 20:59 20:59 Constitutional: Negative for fever, chills, and weight loss, Eyes: Negative for rn injury, pain, redness, and discharge, ENT: + nasal congestion Neck: Negative for injury, pain, and swelling, Cardiovascular: Negative for chest pain, palpitations, and edema, Respiratory: Negative for shortness of breath, cough, wheezing, and pleuritic chest pain, Abdomen/GI: Negative for abdominal pain, nausea, vomiting, diarrhea, and constipation, MS/Extremity: Negative for injury and deformity, Skin: Negative for injury, rash, and discoloration, Neuro: Negative for headache, weakness, numbness, tingling, and seizure, rn 21:17 21:03 12/29/2018 21:03 Discharged to Home. Impression: Nasal congestion. Condition is rr5 Stable. Forms are Medication Reconciliation Form, Thank You Letter, Antibiotic Education, Prescription Opioid Use. Follow up: Private Physician; When: As needed; Reason: Recheck today's complaints, Re-evaluation by your physician. Problem is new. Symptoms have improved. rn
--- NOTE | 2018-12-29 21:04 | ER ---
Nurse's Notes [facility] Name: Janay Penaloza Age: 38 yrs Sex: Female : 1980 Arrival Date: 12/29/2018 Time: 20:14 Bed 17 Private MD: Diagnosis: Nasal congestion Presentation: 12/29 20:24 Presenting complaint: Patient states: c/o feeling like I cant get a full breath in for the past 5-7 days. I am 18 weeks . Transition of care: patient was not received from another setting of care. Onset of symptoms was December 22, 2018. Risk Assessment: Do you want to hurt yourself or someone else? Patient reports no desire to harm self or others. Initial Sepsis Screen: Does the patient meet any 2 criteria? No. Patient's initial sepsis screen is negative. Does the patient have a suspected source of infection? No. Patient's initial sepsis screen is negative. Care prior to arrival: None. 20:24 Method Of Arrival: Ambulatory 20:24 Acuity: VERNON 4 Triage Assessment: 20:26 General: Appears in no apparent distress. comfortable, Behavior is calm, cooperative, ch appropriate for age. Pain: Denies pain. Respiratory: Reports shortness of breath cough that is Airway is patent Trachea midline Respiratory effort is even, unlabored, Breath sounds are clear bilaterally. Onset: The symptoms/episode began/occurred gradually, the patient has mild shortness of breath. 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 - Social history:: Smoking status: Patient/guardian denies using tobacco, Patient/guardian denies using alcohol, street drugs. - Ebola Screening: : Patient negative for fever greater than or equal to 101.5 degrees Fahrenheit, and additional compatible Ebola Virus Disease symptoms Patient denies exposure to infectious person Patient denies travel to an Ebola-affected area in the 21 days before illness onset No symptoms or risks identified at this time. - Family history:: not pertinent. - Hospitalizations: : No recent hospitalization is reported. Screenin:40 Abuse screen: Denies threats or abuse. Denies injuries from another. Nutritional rr5 screening: No deficits noted. Tuberculosis screening: No symptoms or risk factors identified. Fall Risk None identified. Total Alatorre Fall Scale indicates No Risk (0-24 pts). Assessment: 20:40 General: Appears in no apparent distress. comfortable, Behavior is calm, cooperative, rr5 appropriate for age. 20:40 Pain: Denies pain. Neuro: Level of Consciousness is awake, alert, obeys commands, rr5 Oriented to person, place, time, situation, Appropriate for age. Cardiovascular: Capillary refill < 3 seconds Patient's skin is warm and dry. Rhythm is regular. Respiratory: Reports and feels congested Airway is patent Respiratory effort is even, unlabored, Respiratory pattern is regular, symmetrical. GI: Abdomen is . : No signs and/or symptoms were reported regarding the genitourinary system. Reports . EENT: No signs and/or symptoms were reported regarding the EENT system. Derm: No signs and/or symptoms reported regarding the dermatologic system. Musculoskeletal: Capillary refill < 3 seconds, Range of motion: intact in all extremities. 21:15 Reassessment: Patient appears in no apparent distress at this time. No changes from rr5 previously documented assessment. Patient is alert, oriented x 3, equal unlabored respirations, skin warm/dry/pink. discharge instruction given and explained made without complaints made. Vital Signs: 20:26 BP 120 / 73; Pulse 81; Resp 18; Temp 98.3; Pulse Ox 99% on R/A; Weight 65.77 kg; Height 5 ft. 2 in. (157.48 cm); Pain 0/10; 20:26 Body Mass Index 26.52 (65.77 kg, 157.48 cm) ED Course: 20:14 Patient arrived in ED. am2 20:25 Triage completed. 20:26 Fercho Mccann MD is Attending Physician. rn 20:26 Arm band placed on left wrist. Patient placed in an exam room. ch 20:40 Markus Rosario RN is Primary Nurse. rr5 20:40 Patient has correct armband on for positive identification. rr5 20:40 No provider procedures requiring assistance completed. Patient did not have IV access rr5 during this emergency room visit. Administered Medications: No medications were administered Outcome: 20:40 Discharged to home ambulatory, with family. rr5 20:40 Condition: stable 21:03 Discharge ordered by . rn 21:17 Discharge instructions given to patient, Instructed on discharge instructions, follow rr5 up and referral plans. Demonstrated understanding of instructions, follow-up care. 21:17 Patient left the ED. rr5 Signatures: Zoë Cunningham, RN RN Fercho Griffin MD MD rn Moreno, Amanda am2 Roque, Raymond, RN RN rr5
--- OUTSIDE RECORDS SUMMARY | 2018-12-30 12:37 | XMS REPORT | Clinical Summary ---
:1980 Author Organization [facility] Address [address] [place] [address] Care Team Providers Name Role Phone Epifanio [...] Gynecology MD Oniel removal (Primary Dx) after 12/29/2017 Family History Medical History Relation Name Comments [...] Taken Blood Pressure 112/74 07/22/2018 10:18 AM KEY ACCOUNT DIRECTOR Pulse 65 07/22/2018 10:18 AM KEY ACCOUNT DIRECTOR Temperature 37.1 C (98.8 F) 07/22/2018 10:18 AM KEY ACCOUNT DIRECTOR Respiratory Rate - - Oxygen Saturation - - Inhaled Oxygen Concentration - - Weight 63 kg (139 lb) 07/22/2018 10:18 AM KEY ACCOUNT DIRECTOR Height 157.5 cm (5' 2") 07/22/2018 10:18 AM KEY ACCOUNT DIRECTOR Body Mass Index 25.42 07/22/2018 10:18 AM KEY ACCOUNT DIRECTOR Plan of Treatment Health Maintenance Due Date Last Done Comments INFLUENZA VACCINE 03/03/2019 Procedures Procedure Name Priority Date/Time Associated Comments Diagnosis UT REMOVE Routine 07/22/2018 10:30 Encounter for IUD Results for this INTRAUTERINE DEVICE AM KEY ACCOUNT DIRECTOR removal procedure are in the results section. after 12/29/2017 Results IUD removal/insertion (07/22/2018 10:30 AM KEY ACCOUNT DIRECTOR) Narrative Performed At Mery García MD 07/22/2018 [...] Post-procedure: Patient tolerated procedure well: yes after 12/29/2017 Insurance Payer Benefit Plan / Subscriber ID Effective Dates Phone Address Type Group ALLIED HEALTH ALLIED HEALTH xxxxxxxxx 2017-Present Commercial [employer] Advance Directives Patient has advance care planning documents on file. For more information, please contact:[place] [address]
== END 2018-12-29 21:17 | disposition home or self-care (01) ==
LOC: ER 20:12
DX: O26.892 Other specified pregnancy related conditions, second trimester (principal); R09.81 Nasal congestion; Z3A.18 18 weeks gestation of pregnancy
CPT/HCPCS: 99281

== ENCOUNTER 2019-04-23 20:14 | Emergency (ER) | payer OTHER ==
--- OUTSIDE RECORDS SUMMARY | 2019-04-23 20:15 | XMS REPORT | Clinical Summary ---
:1980 Author Organization [facility] Address [address] [place] [address] Care Team Providers Name Role Phone Epifanio Brooks DO Primary Care Provider Allergies No Known Allergies Medications Medication Sig Dispensed Refills Start End Date Status Date levonorgestrel 1 each by 0 07/22/20 Discontinued (MIRENA) 20 mcg/24 intrauterine 18 (Med List hr (5 years) IUD route once. Cleanup) Active Problems Not on file Encounters Date Type Specialty Care Team Description 07/22/2018 Office Visit Obstetrics and Mery García Encounter for IUD Gynecology MD Oniel removal (Primary Dx) after 04/22/2018 Family History Medical History Relation Name Comments [...] Vital Signs Vital Sign Reading Time Taken Comments Blood Pressure 112/74 07/22/2018 10:18 AM VACUUM TESTER CANS Pulse 65 07/22/2018 10:18 AM VACUUM TESTER CANS Temperature 37.1 C (98.8 F) 07/22/2018 10:18 AM VACUUM TESTER CANS Respiratory Rate - - Oxygen Saturation - - Inhaled Oxygen Concentration - - Weight 63 kg (139 lb) 07/22/2018 10:18 AM VACUUM TESTER CANS Height 157.5 cm (5' 2") 07/22/2018 10:18 AM VACUUM TESTER CANS Body Mass Index 25.42 07/22/2018 10:18 AM VACUUM TESTER CANS Plan of Treatment Health Maintenance Due Date Last Done Comments INFLUENZA VACCINE 03/03/2019 CERVICAL CANCER SCREENING 11/09/2020 11/09/2017 Procedures Procedure Name Priority Date/Time Associated Comments Diagnosis [place] REMOVE Routine 07/22/2018 10:30 Encounter for IUD Results for this INTRAUTERINE DEVICE AM VACUUM TESTER CANS removal procedure are in the results section. 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
--- NOTE | 2019-04-23 20:55 | EDPHYS ---
Physician Documentation [facility] Name: Janay Penaloza Age: 38 yrs Sex: Female : 1980 Arrival Date: 04/23/2019 Time: 20:18 Bed 25 Private MD: ED Physician Delvin Meehan HPI: 04/23 20:43 This 38 yrs old Female presents to ER via Ambulatory with complaints of Sore kb Throat. 20:43 The patient presents with sore throat. The patient describes throat pain as constant. kb Onset: The symptoms/episode began/occurred this morning. Severity of symptoms: At their worst the symptoms were moderate, in the emergency department the symptoms are unchanged. Modifying factors: The symptoms are alleviated by nothing, the symptoms are aggravated by swallowing, Patient's oral intake status: good Denies contact with similarly ill indivduals. Associated signs and symptoms: Pertinent positives: earache, Sore throat. The patient has not experienced similar symptoms in the past. The patient has not recently seen a physician. 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 - Social history:: Smoking status: Patient/guardian denies using tobacco. - Ebola Screening: : No symptoms or risks identified at this time. ROS: 20:42 Constitutional: Negative for fever, chills, and weight loss, Neck: Negative for injury, kb pain, and swelling, Cardiovascular: Negative for chest pain, palpitations, and edema, Respiratory: Negative for shortness of breath, cough, wheezing, and pleuritic chest pain, Abdomen/GI: Negative for abdominal pain, nausea, vomiting, diarrhea, and constipation, MS/Extremity: Negative for injury and deformity, Skin: Negative for injury, rash, and discoloration, Neuro: Negative for headache, weakness, numbness, tingling, and seizure. 20:42 ENT: Positive for ear pain, sore throat. Exam: 20:41 Constitutional: This is a well developed, well nourished patient who is awake, alert, kb and in no acute distress. Head/Face: Normocephalic, atraumatic. Neck: Trachea midline, no thyromegaly or masses palpated, and no cervical lymphadenopathy. Supple, full range of motion without nuchal rigidity, or vertebral point tenderness. No Meningismus. Chest/axilla: Normal chest wall appearance and motion. Nontender with no deformity. No lesions are appreciated. Cardiovascular: Regular rate and rhythm with a normal S1 and S2. No gallops, murmurs, or rubs. Normal PMI, no JVD. No pulse deficits. Respiratory: Lungs have equal breath sounds bilaterally, clear to auscultation and percussion. No rales, rhonchi or wheezes noted. No increased work of breathing, no retractions or nasal flaring. Abdomen/GI: Soft, non-tender, with normal bowel sounds. No distension or tympany. No guarding or rebound. No evidence of tenderness throughout. Skin: Warm, dry with normal turgor. Normal color with no rashes, no lesions, and no evidence of cellulitis. MS/ Extremity: Pulses equal, no cyanosis. Neurovascular intact. Full, normal range of motion. Neuro: Awake and alert, GCS 15, oriented to person, place, time, and situation. Cranial nerves II-XII grossly intact. Motor strength 5/5 in all extremities. Sensory grossly intact. Cerebellar exam normal. Normal gait. 20:41 ENT: Posterior pharynx: Airway: normal, no evidence of obstruction, Tonsils: with erythema, Uvula: normal, midline, swelling, that is mild, erythema, that is mild, exudate, is not appreciated. Vital Signs: 20:22 BP 122 / 82; Pulse 91; Resp 16; Temp 98.4; Pulse Ox 100% on R/A; Weight 68.49 kg; la1 Height 5 ft. 2 in. (157.48 cm); 21:05 BP 108 / 76; Pulse 90; Resp 18; Pulse Ox 100% on R/A; mg2 20:22 Body Mass Index 27.62 (68.49 kg, 157.48 cm) la1 MDM: 20:30 Patient medically screened. kb 20:41 Data reviewed: vital signs, nurses notes. Data interpreted: Pulse oximetry: on room air kb is 100 %. Interpretation: normal. Counseling: I had a detailed discussion with the patient and/or guardian regarding: the historical points, exam findings, and any diagnostic results supporting the discharge/admit diagnosis, lab results, the need for outpatient follow up, a family practitioner, to return to the emergency department if symptoms worsen or persist or if there are any questions or concerns that arise at home. 04/23 20:23 Order name: Strep; Complete Time: 20:53 la1 Administered Medications: No medications were administered Disposition: 04/24 09:16 Co-signature as Attending Physician, Delvin Meehan MD I agree with the assessment and wa plan of care. Disposition: 04/23/19 20:54 Discharged to Home. Impression: Streptococcal pharyngitis. - Condition is Stable. - Discharge Instructions: Strep Throat, [id number]. - Prescriptions for Augmentin 875- 125 mg Oral Tablet - take 1 tablet by ORAL route every 12 hours for 10 days; 20 tablet. - Medication Reconciliation Form, Thank You Letter, Antibiotic Education, Prescription Opioid Use form. - Follow up: Emergency Department; When: As needed; Reason: Worsening of condition. Follow up: Private Physician; When: 2 - 3 days; Reason: Recheck today's complaints, Continuance of care, Re-evaluation by your physician. Signatures: Dispatcher [employer] EDSD Phuong Manuel, BIOSTATISTICS DIRECTOR-C GUILLERMO-Fredrick Machado RN RN la1 Delvin Meehan MD MD wa Gardose, Michele, RN RN mg2 Corrections: (The following items were deleted from the chart) 04/23 21:06 20:54 04/23/2019 20:54 Discharged to Home. Impression: Streptococcal pharyngitis. mg2 Condition is Stable. Discharge Instructions: Pharyngitis, [id number], Viral Respiratory Infection, Jstb-Hn-[id number], Sore Throat, Lwvm-wi-Enke. Forms are Medication Reconciliation Form, Thank You Letter, Antibiotic Education, Prescription Opioid Use. Follow up: Emergency Department; When: As needed; Reason: Worsening of condition. Follow up: Private Physician; When: 2 - 3 days; Reason: Recheck today's complaints, Continuance of care, Re-evaluation by your physician. kb
--- NOTE | 2019-04-23 20:55 | ER ---
Nurse's Notes [facility] Name: Janay Penaloza Age: 38 yrs Sex: Female : 1980 Arrival Date: 04/23/2019 Time: 20:18 Bed 25 Private MD: Diagnosis: Streptococcal pharyngitis Presentation: 04/23 20:21 Presenting complaint: Patient states: I am about eight months and woke up with la1 a sore throat this morning. I felt fine last night. Transition of care: patient was not received from another setting of care. Onset of symptoms was April 23, 2019. Risk Assessment: Do you want to hurt yourself or someone else? Patient reports no desire to harm self or others. Initial Sepsis Screen: Does the patient meet any 2 criteria? No. Patient's initial sepsis screen is negative. Does the patient have a suspected source of infection? No. Patient's initial sepsis screen is negative. Care prior to arrival: None. 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 - Social history:: Smoking status: Patient/guardian denies using tobacco. - Ebola Screening: : No symptoms or risks identified at this time. Screenin:00 Abuse screen: Denies threats or abuse. Denies injuries from another. Nutritional mg2 screening: No deficits noted. Tuberculosis screening: No symptoms or risk factors identified. Fall Risk None identified. Assessment: 20:59 General: Appears in no apparent distress. comfortable, Behavior is calm, cooperative. mg2 Pain: Complains of pain in throat. Neuro: Level of Consciousness is awake, alert, obeys commands, Oriented to person, place, time, situation. Cardiovascular: Capillary refill < 3 seconds Patient's skin is warm and dry. Respiratory: Airway is patent Respiratory effort is even, unlabored, Breath sounds are clear bilaterally. in mediastinum, right upper lobe and left upper lobe. GI: No signs and/or symptoms were reported involving the gastrointestinal system. : No signs and/or symptoms were reported regarding the genitourinary system. EENT: Throat is reddened. Derm: Skin is intact, is healthy with good turgor, Skin is pink, warm \T\ dry. normal. Musculoskeletal: Circulation, motion, and sensation intact. Capillary refill < 3 seconds. Vital Signs: 20:22 BP 122 / 82; Pulse 91; Resp 16; Temp 98.4; Pulse Ox 100% on R/A; Weight 68.49 kg; la1 Height 5 ft. 2 in. (157.48 cm); 21:05 BP 108 / 76; Pulse 90; Resp 18; Pulse Ox 100% on R/A; mg2 20:22 Body Mass Index 27.62 (68.49 kg, 157.48 cm) la1 ED Course: 20:18 Patient arrived in ED. ds1 20:22 Triage completed. la1 20:22 Arm band placed on left wrist. la1 20:23 Ph[facility]ong Manuel [facility]C [facility] kb 20:23 Shavonne Sorensen MD is Attending Physician. kb 20:23 Delvin Meehan MD is Attending Physician. kb 20:41 Rico Camarillo, STUART is Primary Nurse. mg2 21:00 Patient has correct armband on for positive identification. mg2 21:00 No provider procedures requiring assistance completed. Patient did not have IV access mg2 during this emergency room visit. Administered Medications: No medications were administered Outcome: 20:54 Discharge ordered by . kb 21:05 Discharged to home ambulatory, with family. mg2 21:05 Condition: stable 21:05 Discharge instructions given to patient, family, Instructed on discharge instructions, follow up and referral plans. medication usage, Demonstrated understanding of instructions, follow-up care, medications, Prescriptions given X 1. 21:06 Patient left the ED. mg2 Signatures: Phuong Manuel FNP-C FNP-Lena Figueroa ds1 Fredrick Duncan RN RN la1 Rico Camarillo RN RN mg2
[2019-04-23 21:12] VITALS: TEMP 98.4; O2SAT 100
[2019-04-23 21:14] VITALS: BP 108/76
== END 2019-04-23 21:06 | disposition home or self-care (01) ==
LOC: ER 20:14
DX: J02.0 Streptococcal pharyngitis (principal)
CPT/HCPCS: 87081; 99282

== ENCOUNTER 2019-10-03 13:17 | Emergency (ER) | payer OTHER, SELFPAY ==
--- OUTSIDE RECORDS SUMMARY | 2019-10-03 13:20 | XMS REPORT ---
:1980 Author Organization [facility] Address [address] [place] [address] Care Team Providers Name Role Phone Unavailable Unavailable Unavailable Payers Payer Name Policy Type Policy Number Effective Date Expiration Date Problems This patient has no known problems. Allergies, Adverse Reactions, Alerts Allergy Allergy Status Severity Reaction(s) Onset Inactive Treating Comments Name Type Date Date Clinician No Known DA Active U 2019-05 Allergies 04 00:00:0 0 Medications This patient has no known medications. Results Test Description Test Time Test Comments Text Results Atomic Results Result Comments PROTHROMBIN TIME 2019-05-08 06:14:00 Test Item Value Reference Range Comments PROTHROMBIN TIME PATIENT (test code=PTP) 10.9 secs 10.4-12.4 THROMBOPLASTIN TIME [id number] 06:14:00 Test Item Value Reference Range Comments THROMBOPLASTIN TIME PARTIAL (test code=PTT) 25.1 secs 22-38 [id number] 06:14:00 Test Item Value Reference Range Comments FIBRINOGEN (test code=FIB) 432 mg/dL 309-518 CBC W/AUTO [id number] 08:29:00 Test Item Value Reference Range Comments WHITE BLOOD CELL (test code=WBC) 14.3 K/mm3 6.6-12.1 RED BLOOD CELL (test code=RBC) 3.71 M/mm3 3.45-5.01 HEMOGLOBIN (test code=HGB) 11.5 g/dL 10.7-13.9 HEMATOCRIT (test code=HCT) 34.7 % 32.1-42.1 MEAN CELL VOLUME (test code=MCV) 94 fL 84.1-94.8 MEAN CELL HGB (test code=MCH) 31.0 pg 27-35 MEAN CELL HGB CONCETRATION (test code=MCHC) 33.1 gm/dL 32.2-34.1 RED CELL DISTRIBUTION WIDTH (test code=RDW) 14.7 % 12.4-16.5 PLATELET COUNT (test code=PLT) 127 K/mm3 133-385 IMMATURE PLATELET FRACTION (test code=IPF) 0.0 % 0.0-10.8 MEAN PLATELET VOLUME (test code=MPV) 11.3 fl 9.1-12.7 NEUTROPHIL % (test code=NT%) 81.8 % 56.5-79.4 LYMPHOCYTE % (test code=LY%) 10.4 % 14.3-34.3 MONOCYTE % (test code=MO%) 5.7 % 5.1-10.4 EOSINOPHIL % (test code=EO%) 0.1 % 0.1-3.0 BASOPHIL % (test code=BA%) 0.2 % 0.1-1.0 NEUTROPHIL # (test code=NT#) 11.7 K/mm3 LYMPHOCYTE # (test code=LY#) 1.5 K/mm3 MONOCYTE # (test code=MO#) 0.8 K/mm3 EOSINOPHIL # (test code=EO#) 0.01 K/mm3 BASOPHIL # (test code=BA#) 0.0 K/mm3 RBC MORPHOLOGY REQUIRED (test code=RBCM) NORMAL NORMAL PLATELET MORPHOLOGY REQUIRED (test code=PLTMR) NORMAL NORMAL PROTHROMBIN [id number] 01:49:00 Test Item Value Reference Range Comments PROTHROMBIN TIME PATIENT (test code=PTP) 11.2 secs 10.4-12.4 THROMBOPLASTIN TIME [id number] 01:49:00 Test Item Value Reference Range Comments THROMBOPLASTIN TIME PARTIAL (test code=PTT) 24.3 secs 22-38 [id number] 01:49:00 Test Item Value Reference Range Comments FIBRINOGEN (test code=FIB) 350 mg/dL 309-518 CBC W/AUTO [id number] 00:40:00 Test Item Value Reference Range Comments WHITE BLOOD CELL (test code=WBC) 12.8 K/mm3 6.6-12.1 RED BLOOD CELL (test code=RBC) 4.13 M/mm3 3.45-5.01 HEMOGLOBIN (test code=HGB) 13.1 g/dL 10.7-13.9 HEMATOCRIT (test code=HCT) 38.4 % 32.1-42.1 MEAN CELL VOLUME (test code=MCV) 93 fL 84.1-94.8 MEAN CELL HGB (test code=MCH) 31.7 pg 27-35 MEAN CELL HGB CONCETRATION (test code=MCHC) 34.1 gm/dL 32.2-34.1 RED CELL DISTRIBUTION WIDTH (test code=RDW) 14.7 % 12.4-16.5 PLATELET COUNT (test code=PLT) 115 K/mm3 133-385 IMMATURE PLATELET FRACTION (test code=IPF) 0.0 % 0.0-10.8 MEAN PLATELET VOLUME (test code=MPV) 11.4 fl 9.1-12.7 NEUTROPHIL % (test code=NT%) 82.8 % 56.5-79.4 LYMPHOCYTE % (test code=LY%) 10.2 % 14.3-34.3 MONOCYTE % (test code=MO%) 3.4 % 5.1-10.4 EOSINOPHIL % (test code=EO%) 0.2 % 0.1-3.0 BASOPHIL % (test code=BA%) 0.4 % 0.1-1.0 NEUTROPHIL # (test code=NT#) 10.6 K/mm3 LYMPHOCYTE # (test code=LY#) 1.3 K/mm3 MONOCYTE # (test code=MO#) 0.4 K/mm3 EOSINOPHIL # (test code=EO#) 0.03 K/mm3 BASOPHIL # (test code=BA#) 0.1 K/mm3 RBC MORPHOLOGY REQUIRED (test code=RBCM) NORMAL NORMAL PLATELET MORPHOLOGY REQUIRED (test code=PLTMR) NORMAL NORMAL AG HEPATITIS B [id number] 23:01:00 Test Item Value Reference Range Comments AG HEPATITIS B SURFACE (test code=HBSAG) NONREACTIVE NONREACTIVE AB HEPATITIS C [id number] 23:01:00 Test Item Value Reference Range Comments AB HEPATITIS C (test code=HCVAB) NONREACTIVE NONREACTIVE SIGNAL TO CUTOFF (test code=CUTOFF) 0.11 <0.80 AB [id number] 23:01:00 Test Item Value Reference Range Comments AB TREPONEMA (test code=TREPAB) NONREACTIVE NONREACTIVE AB HIV 1 23:01:00 Test Item Value Reference Range Comments AB HIV 1 2 (test NONREACTIVE NONREACTIVE Done by Green A 4th code=OUY97HY) Gen HIV Ag/Ab Combo Screen AG HEPATITIS B [id number] 21:47:00 Test Item Value Reference Range Comments AG HEPATITIS B SURFACE (test code=HBSAG) NONREACTIVE NONREACTIVE AB HEPATITIS C [id number] 21:47:00 Test Item Value Reference Range Comments AB HEPATITIS C (test code=HCVAB) NONREACTIVE NONREACTIVE SIGNAL TO CUTOFF (test code=CUTOFF) 0.11 <0.80 AB [id number] 21:47:00 Test Item Value Reference Range Comments AB TREPONEMA (test code=TREPAB) NONREACTIVE NONREACTIVE CBC W/AUTO [id number] 20:22:00 Test Item Value Reference Range Comments WHITE BLOOD CELL (test code=WBC) 10.4 K/mm3 6.6-12.1 RED BLOOD CELL (test code=RBC) 4.30 M/mm3 3.45-5.01 HEMOGLOBIN (test code=HGB) 13.4 g/dL 10.7-13.9 HEMATOCRIT (test code=HCT) 40.5 % 32.1-42.1 MEAN CELL VOLUME (test code=MCV) 94 fL 84.1-94.8 MEAN CELL HGB (test code=MCH) 31.2 pg 27-35 MEAN CELL HGB CONCETRATION (test code=MCHC) 33.1 gm/dL 32.2-34.1 RED CELL DISTRIBUTION WIDTH (test code=RDW) 14.7 % 12.4-16.5 PLATELET COUNT (test code=PLT) 132 K/mm3 133-385 IMMATURE PLATELET FRACTION (test code=IPF) 0.0 % 0.0-10.8 MEAN PLATELET VOLUME (test code=MPV) 11.6 fl 9.1-12.7 NEUTROPHIL % (test code=NT%) 74.0 % 56.5-79.4 LYMPHOCYTE % (test code=LY%) 13.6 % 14.3-34.3 MONOCYTE % (test code=MO%) 7.1 % 5.1-10.4 EOSINOPHIL % (test code=EO%) 0.8 % 0.1-3.0 BASOPHIL % (test code=BA%) 0.4 % 0.1-1.0 NEUTROPHIL # (test code=NT#) 7.7 K/mm3 LYMPHOCYTE # (test code=LY#) 1.4 K/mm3 MONOCYTE # (test code=MO#) 0.7 K/mm3 EOSINOPHIL # (test code=EO#) 0.08 K/mm3 BASOPHIL # (test code=BA#) 0.0 K/mm3 RBC MORPHOLOGY REQUIRED (test code=RBCM) NORMAL NORMAL PLATELET MORPHOLOGY REQUIRED (test code=PLTMR) NORMAL NORMAL
[2019-10-03 13:45] LABS: Absolute Lymphocytes (CBC) 1.2 K/uL (0.7-4.9); Basophils % 0.5 % (0-1.3); Hematocrit 40.2 % (36.0-45.0); Lymphocytes % 17.4 % (15.3-44.8); MPV 10.1 fL (7.6-11.3); RBC Red Blood Cell Count 4.89 M/uL (3.86-4.86)
[2019-10-03 13:55] LABS: Protime INR 1.02
[2019-10-03 14:06] LABS: ALT/SGPT 30 U/L (12-78); AST/SGOT 14 U/L (15-37); Albumin 3.4 g/dL (3.4-5.0); Alkaline Phosphatase 75 U/L (45-117); BUN Blood Urea Nitrogen 13 mg/dL (7-18); Bicarbonate 25 mmol/L (21-32); Bilirubin Direct < 0.1 mg/dL (0-0.2); Bilirubin Total 0.4 mg/dL (0.2-1.0); Glucose Level 109 mg/dL (74-106); Protein, Total 7.2 g/dL (6.4-8.2); Sodium Level 140 mmol/L (136-145)
[2019-10-03 14:08] LABS: Potassium 2.9 mmol/L (3.5-5.1)
[2019-10-03 14:15] LABS: Urine Blood NEGATIVE (NEG); Urine Glucose NEGATIVE (NEG); Urine Protein NEGATIVE (NEG); Urine Specific Gravity 1.015 (1.005-1.030); Urine pH 6.5 (5.0-7.0)
[2019-10-03 14:27] LABS: Barbiturates NEGATIVE (NEGATIVE); Benzodiazepines NEGATIVE (NEGATIVE); Cocaine NEGATIVE (NEGATIVE); METHAMPHETAM NEGATIVE (NEGATIVE); Methadone NEGATIVE (NEGATIVE); Opiates NEGATIVE (NEGATIVE); Phencyclidine NEGATIVE (NEGATIVE); THC Cannibis NEGATIVE (NEGATIVE)
[2019-10-03] MEDS ORDERED: POTASSIUM 25 MEQ EFFERV TAB ONE (14:30)
--- NOTE | 2019-10-03 15:32 | EKG ---
Test Date: 2019-10-03 Test Time: 13:35:53 Other Spatial Scientist: SHIKHA MEASUREMENT RESULTS: Intervals: Rate: 72 PA: 156 QRSD: 92 QT: 388 QTc: 424 [place]: P: 46 PA: 156 QRS: 32 T: 8 INTERPRETIVE STATEMENTS: Normal sinus rhythm Nonspecific T wave abnormality Abnormal ECG No previous ECG available for comparison Electronically Signed On 10-03-19 15:31:23 MRP CONTROLLER by Rachid Laughlin
--- NOTE | 2019-10-04 03:29 | EDPHYS ---
Physician Documentation [facility] Name: Janay Penaloza Age: 39 yrs Sex: Female : 1980 Arrival Date: 10/03/2019 Time: 13:19 Bed 8 Private MD: ED Physician Caio Hensley HPI: 10/02 20:37 This 39 yrs old Female presents to ER via EMS with complaints of Suicidal tw4 Ideation, Overdose. 20:37 The patient presents to the emergency department with a history of a suicide gesture, tw4 suicide ideation, and the patient has a plan, to overdose with medications. Onset: The symptoms/episode began/occurred today. Past psychiatric history: Prior diagnosis: depression. Severity of symptoms: At their worst the symptoms were moderate in the emergency department the symptoms are unchanged. 20:54 The patient presents to the emergency department with a history of a suicide gesture, tw4 where the patient took pills/medications, celexa. Associated signs and symptoms: The patient has no apparent associated signs or symptoms. 20:54 pt state she ingested approx 20mg tablets of celexa. tw4 Historical: - Allergies: 13:22 No Known Allergies; bp - Home Meds: 13:22 citalopram 20 mg tab 1 tab once daily [Active]; bp - PMHx: 13:22 Depression; bp - Immunization history:: Adult Immunizations up to date. - Social history:: Smoking status: Patient denies any tobacco usage or history of. ROS: 20:37 Constitutional: Negative for fever, chills, and weight loss, Eyes: Negative for injury, tw4 pain, redness, and discharge, Cardiovascular: Negative for chest pain, palpitations, and edema, Respiratory: Negative for shortness of breath, cough, wheezing, and pleuritic chest pain, Abdomen/GI: Negative for abdominal pain, nausea, vomiting, diarrhea, and constipation, Back: Negative for injury and pain, MS/Extremity: Negative for injury and deformity, Skin: Negative for injury, rash, and discoloration. 20:37 Neuro: Negative for headache, weakness, numbness, tingling, and seizure. 20:37 Neuro: Positive for 20:37 Psych: Positive for depression, suicide gesture, suicidal ideation. Exam: 20:37 Constitutional: This is a well developed, well nourished patient who is awake, alert, tw4 and in no acute distress. Head/Face: Normocephalic, atraumatic. Chest/axilla: Normal chest wall appearance and motion. Nontender with no deformity. No lesions are appreciated. Cardiovascular: Regular rate and rhythm with a normal S1 and S2. No gallops, murmurs, or rubs. Normal PMI, no JVD. No pulse deficits. Respiratory: Lungs have equal breath sounds bilaterally, clear to auscultation and percussion. No rales, rhonchi or wheezes noted. No increased work of breathing, no retractions or nasal flaring. Abdomen/GI: Soft, non-tender, with normal bowel sounds. No distension or tympany. No guarding or rebound. No evidence of tenderness throughout. Back: No spinal tenderness. No costovertebral tenderness. Full range of motion. MS/ Extremity: Pulses equal, no cyanosis. Neurovascular intact. Full, normal range of motion. Neuro: Awake and alert, GCS 15, oriented to person, place, time, and situation. Cranial nerves II-XII grossly intact. Motor strength 5/5 in all extremities. Sensory grossly intact. Cerebellar exam normal. Normal gait. 20:37 Neuro: Orientation: is normal, Mentation: 20:37 Psych: Behavior/mood is cooperative, Affect is flat, Oriented to person, place, time, Patient has no thoughts/intents to harm self or others. Vital Signs: 13:19 BP 130 / 82; Pulse 75; Resp 16; Temp 98; Pulse Ox 98% ; Weight 63.96 kg; Height 5 ft. 2 bp in. (157.48 cm); 13:48 BP 121 / 87; Pulse 70; Resp 18; Pulse Ox 100% ; bp 14:18 BP 125 / 79; Pulse 92; Resp 17; Pulse Ox 100% ; bp 15:45 BP 127 / 82; Pulse 90; Resp 20; Pulse Ox 98% ; bp 16:58 BP 121 / 89; Pulse 86; Resp 17; Pulse Ox 98% ; bp 17:49 BP 125 / 91; Pulse 83; Resp 19; Pulse Ox 98% ; bp 18:23 BP 119 / 83; Pulse 83; Resp 21; Pulse Ox 98% ; bp 19:37 BP 116 / 82; Pulse 84; Resp 17; Temp 98.4(O); Pulse Ox 100% on R/A; mt 21:30 BP 107 / 62; Pulse 78; Resp 16; Pulse Ox 99% on R/A; rr5 10/03 04:00 BP 114 / 73; Pulse 81; Resp 17; Temp 98; Pulse Ox 99% on R/A; rr5 10/02 13:19 Body Mass Index 25.79 (63.96 kg, 157.48 cm) bp MDM: 10/02 13:19 Patient medically screened. tw4 20:37 Differential diagnosis: drug withdrawal. acute psychotic break. Data reviewed: vital tw4 signs, nurses notes. 20:56 Data interpreted: Pulse oximetry: Interpretation: normal. Awaiting: Psychiatric tw4 contingents supervisor. 10/03 03:27 ED course: Evaluated by [facility], deemed ok to dc home and outpt f/u. rn Patient denies suicidal ideation or homicidal ideation. reports undera lot of stress, has not had previous suicide attempt, no psychiatric admission in past. . 10/02 13:20 Order name: Acetaminophen; Complete Time: 03:29 [facility] 10/02 13:20 Order name: Basic Metabolic Panel; Complete Time: 03:29 tw4 10/02 13:20 Order name: CBC with Diff; Complete Time: 03:29 tw4 10/02 13:20 Order name: ETOH Level; Complete Time: 03:29 4 10/02 13:20 Order name: Hepatic Function; Complete Time: 03:29 tw4 10/02 13:20 Order name: PT-INR; Complete Time: 03:29 4 10/02 13:20 Order name: Ptt, Activated; Complete Time: 03:29 4 10/02 13:20 Order name: Salicylate; Complete Time: 03:29 tw4 10/02 13:20 Order name: Urine Drug Screen; Complete Time: 03:29 tw4 10/02 13:20 Order name: EKG; Complete Time: 13:21 4 10/02 13:20 Order name: EKG - Nurse/Tech; Complete Time: 13:48 4 10/02 14:04 Order name: Urine Dipstick--Ancillary (enter results); Complete Time: 03:29 10/02 14:04 Order name: Urine --Ancillary (enter results); Complete Time: 03:29 10/02 13:20 Order name: IV Saline Lock; Complete Time: 13:25 tw4 10/02 13:20 Order name: Labs collected and sent; Complete Time: 13:48 tw4 10/02 13:20 Order name: Urine Dipstick-Ancillary (obtain specimen); Complete Time: 14:05 tw4 EC/02 20:37 Rate is 42 beats/min. Rhythm is regular. QRS [place] is Normal. [place] interval is normal. QRS tw4 interval is normal. QT interval is normal. No Q waves. T waves are Inverted in leads III, V2, V3. No ST changes noted. Clinical impression: NSR w/ Non-specific ST/T Changes. Interpreted by me. Reviewed by me. Administered Medications: 14:20 Drug: Potassium Effervescent Tablet 50 mEq Route: PO; bp 15:45 Follow up: Response: No adverse reaction bp Disposition: 10/04/19 03:28 Discharged to Home. Impression: Suicidal ideations, Nontoxic overdose. - Condition is Stable. - Discharge Instructions: Suicidal Feelings: How to Help Yourself, Helping Someone Who is Suicidal, Stress and Stress Management. - Medication Reconciliation Form, Thank You Letter, Antibiotic Education, Prescription Opioid Use form. - Follow up: Private Physician; When: As needed; Reason: Recheck today's complaints, Re-evaluation by your physician. - Problem is new. - Symptoms have improved. Signatures: Dispatcher [employer] EDMS Fercho Mccann MD MD rn Peltier, Brian RN RN Caio Lala MD MD tw4 Markus Rosario RN RN rr5 Corrections: (The following items were deleted from the chart) 10/03 03:29 03:28 10/04/2019 03:28 Discharged to Home. Impression: Suicidal ideations. Condition is rn Stable. Forms are Medication Reconciliation Form, Thank You Letter, Antibiotic Education, Prescription Opioid Use. Follow up: Private Physician; When: As needed; Reason: Recheck today's complaints, Re-evaluation by your physician. Problem is new. Symptoms have improved. rn 04:04 03:29 10/04/2019 03:28 Discharged to Home. Impression: Suicidal ideations; Nontoxic rr5 overdose. Condition is Stable. Discharge Instructions: Suicidal Feelings: How to Help Yourself, Helping Someone Who is Suicidal, Stress and Stress Management. Forms are Medication Reconciliation Form, Thank You Letter, Antibiotic Education, Prescription Opioid Use. Follow up: Private Physician; When: As needed; Reason: Recheck today's complaints, Re-evaluation by your physician. Problem is new. Symptoms have improved. rn
--- NOTE | 2019-10-04 03:29 | ER ---
Nurse's Notes [facility] Name: Janay Penaloza Age: 39 yrs Sex: Female : 1980 Arrival Date: 10/03/2019 Time: 13:19 Bed 8 Private MD: Diagnosis: Suicidal ideations;Nontoxic overdose Presentation: 10/02 13:19 Chief complaint: EMS states: OVERDOSE OF 20 TABS OF 20MG CITALOPRAM, SUICIDE NOTE ON bp SCENE. Coronavirus screen: The patient has NOT traveled to [place] in the past 14 days. The patient has NOT had contact with known and/or suspected case of Coronavirus. Ebola Screen: No symptoms or risks identified at this time. Initial Sepsis Screen: Does the patient meet any 2 criteria? No. Patient's initial sepsis screen is negative. Does the patient have a suspected source of infection? No. Patient's initial sepsis screen is negative. Risk Assessment: Do you want to hurt yourself or someone else? Other: NO LONGER SUICIDAL. Care prior to arrival: IV initiated. 20 GA, in the left hand. 13:19 Method Of Arrival: EMS: [facility] bp 13:19 Acuity: VERNON 2 bp Triage Assessment: 13:22 General: Appears in no apparent distress. comfortable, Behavior is calm, cooperative, bp appropriate for age, anxious. Pain: Denies pain. EENT: No deficits noted. Neuro: Level of Consciousness is awake, alert, obeys commands, Oriented to person, place, time, situation, Appropriate for age. Cardiovascular: Rhythm is sinus rhythm. Respiratory: No deficits noted. GI: No signs and/or symptoms were reported involving the gastrointestinal system. : No signs and/or symptoms were reported regarding the genitourinary system. Derm: No deficits noted. Musculoskeletal: No deficits noted. Historical: - Allergies: 13:22 No Known Allergies; bp - Home Meds: 13:22 citalopram 20 mg tab 1 tab once daily [Active]; bp - PMHx: 13:22 Depression; bp - Immunization history:: Adult Immunizations up to date. - Social history:: Smoking status: Patient denies any tobacco usage or history of. Screenin:23 Abuse screen: Denies threats or abuse. Denies injuries from another. Nutritional bp screening: No deficits noted. Tuberculosis screening: No symptoms or risk factors identified. Fall Risk None identified. Assessment: 13:23 General: SEE TRIAGE NOTE. PT EXPRESSES REMORSE FOR SUICIDAL GESTURE. bp 14:18 Reassessment: FAMILY AT B/S FOR VISITATION. bp 15:30 Reassessment: PT MOVED TO 8. bp 16:58 Reassessment: PT RESTING QUIETLY, NO S/S TRANSFER ENGINEER DEPRESSION. bp 17:45 Reassessment: PER POISON CONTROL, PT TO REMAIN UNDER OBS UNTIL 2014 WITH A REPEAT EKG, bp CASE #[id number]. 18:24 Reassessment: NO TRANSFER ENGINEER OR SEROTONIN SYNDROME S/S NOTED, VS REMAIN STABLE. bp 19:15 General: Appears in no apparent distress. comfortable, Behavior is calm, cooperative, rr5 appropriate for age, for psychiatric clearance after ECG at 2015H. Pain: Denies pain. Neuro: Level of Consciousness is awake, alert, obeys commands, Oriented to person, place, time, situation. Cardiovascular: Capillary refill < 3 seconds Patient's skin is warm and dry. Respiratory: Airway is patent Respiratory effort is even, unlabored, Respiratory pattern is regular, symmetrical. GI: No signs and/or symptoms were reported involving the gastrointestinal system. : No signs and/or symptoms were reported regarding the genitourinary system. EENT: No signs and/or symptoms were reported regarding the EENT system. Derm: Skin is intact, is healthy with good turgor, Skin temperature is warm. Musculoskeletal: Circulation, motion, and sensation intact. Capillary refill < 3 seconds. 20:50 Reassessment: valuables surrendered to security. rr5 21:17 Reassessment: yadiel from poison control called and updated the status of the patient rr5 awaiting for [facility]. 23:24 Reassessment: Patient appears in no apparent distress at this time. Patient is alert, rr5 oriented x 3, equal unlabored respirations, skin warm/dry/pink. [facility] staff at bedside assessing the patient. 10/03 00:00 Reassessment: cleared for discharge from [facility]. ED provider aware. awaiting for rr5 clearance by ED provider. 02:50 Reassessment: Patient appears in no apparent distress at this time. No changes from rr5 previously documented assessment. Patient is alert, oriented x 3, equal unlabored respirations, skin warm/dry/pink. 03:35 Reassessment: Patient appears in no apparent distress at this time. Patient is alert, rr5 oriented x 3, equal unlabored respirations, skin warm/dry/pink. assess by dr. mccann. discharge instruction given and explained without complaints made. 03:35 Reassessment: valuables returned to patient. rr5 Psych: 10/02 13:20 Subjective: Patient's mood is sad, Delusions are denied, Hallucinations are denied bp Having thoughts of suicide. Plan for suicide is OVERDOSE ON PRESCRIBED MEDICATION PT AFFIRMS SI RESOLVED, EXPRESSES REMORSE FOR SUICIDE ATTEMPT. Objective: Patient is cooperative, Speech is normal, Affect is appropriate. Interventions: Removed personal items and placed in bag. Patient placed in hospital gown. Searched person for dangerous items. Belonging list filled out. Suicide Risk Assessment: Sad Person Scale: Sex of patient: Female: Score 0 points. Age of patient: Score 0 point if patient falls outside of specified age parameters. Depression: Score 1 point if signs of depression are present. Previous Attempt: Score 0 point if patient has not previously attempted suicide. Substance Abuse: Score 0 point if patient does not abuse alcohol or drugs. Rational Thinking: Score 0 point if patient has rational thinking. Social Support: Score 0 if social support is present/available. Organized Plan: Score 1 point if patient had a plan in place. Relationship: Score 0 point if patient has a spouse or domestic partner. Chronic Sickness: Score 0 point if patient does not have a chronic illness, debilitating, or severe disorder. Safety Checks: Personal items have been removed. Door is open. Visitors are present. Pt denies substance abuse. Commitment: MENTAL HEALTH CONTACTED BUT NOT YET ARRIVED. Vital Signs: 13:19 BP 130 / 82; Pulse 75; Resp 16; Temp 98; Pulse Ox 98% ; Weight 63.96 kg; Height 5 ft. 2 bp in. (157.48 cm); 13:48 BP 121 / 87; Pulse 70; Resp 18; Pulse Ox 100% ; bp 14:18 BP 125 / 79; Pulse 92; Resp 17; Pulse Ox 100% ; bp 15:45 BP 127 / 82; Pulse 90; Resp 20; Pulse Ox 98% ; bp 16:58 BP 121 / 89; Pulse 86; Resp 17; Pulse Ox 98% ; bp 17:49 BP 125 / 91; Pulse 83; Resp 19; Pulse Ox 98% ; bp 18:23 BP 119 / 83; Pulse 83; Resp 21; Pulse Ox 98% ; bp 19:37 BP 116 / 82; Pulse 84; Resp 17; Temp 98.4(O); Pulse Ox 100% on R/A; mt 21:30 BP 107 / 62; Pulse 78; Resp 16; Pulse Ox 99% on R/A; rr5 10/03 04:00 BP 114 / 73; Pulse 81; Resp 17; Temp 98; Pulse Ox 99% on R/A; rr5 10/02 13:19 Body Mass Index 25.79 (63.96 kg, 157.48 cm) bp ED Course: 10/02 13:19 Patient arrived in ED. bp 13:19 Caio Hensley MD is Attending Physician. tw4 13:21 Triage completed. bp 13:22 Arm band placed on. bp 13:23 Patient has correct armband on for positive identification. Bed in low position. Call bp light in reach. Side rails up X2. 13:23 Maintain EMS IV. Dressing intact. Good blood return noted. Site clean \T\ dry. Gauge \T\ bp site: 20 GAUGE LEFT HAND. 13:25 Renard Pierce RN is Primary Nurse. bp 13:48 EKG done, by radiology ct technologist. reviewed by Caio Hensley MD. at1 13:58 Urine collected: clean catch specimen, clear. dh3 19:15 Safety Checks: Personal items have been removed. surrendered to security The door is rr5 open or patient has been placed in a hallway bed/chair. There are no family/friend visitors at this time Sitter present at this time. 20:28 called [facility] spoke with jennie to have a screener evaluate pt. mw2 10/03 04:04 No provider procedures requiring assistance completed. IV discontinued, intact, rr5 bleeding controlled, No redness/swelling at site. Pressure dressing applied. Administered Medications: 10/02 14:20 Drug: Potassium Effervescent Tablet 50 mEq Route: PO; bp 15:45 Follow up: Response: No adverse reaction bp Outcome: 10/03 03:28 Discharge ordered by . rn 04:04 Discharged to home ambulatory. rr5 04:04 Condition: stable 04:04 Discharge instructions given to patient, Instructed on discharge instructions, follow up and referral plans. Demonstrated understanding of instructions, follow-up care. 04:04 Patient left the ED. rr5 Signatures: Mccann, Fercho, MD MD rn ValerioAfshan milian, loom tuner EKG Tat1 Nancy Landeros in Juan Manuel, Mulu 3 Renard Pierce, STUART RN bp Caio Hensley MD MD 4 Inder Vallecillo 2 Markus Rosario RN RN rr5 Corrections: (The following items were deleted from the chart) 10/02 17:49 17:45 Reassessment: PER POISON CONTROL, PT TO REMAIN UNDER OBS UNTIL 2014 WITH A REPEAT bp EKG bp
[2019-10-04 04:59] VITALS: BP 114/73; TEMP 98; O2SAT 99
--- NOTE | 2019-10-05 08:27 | EKG ---
Test Date: 2019-10-03 Test Time: 20:11:10 [employer] Service Technician: REZA MEASUREMENT RESULTS: Intervals: Rate: 72 MO: 152 QRSD: 88 QT: 382 QTc: 418 [place]: P: 44 MO: 152 QRS: 30 T: -13 INTERPRETIVE STATEMENTS: Normal sinus rhythm T wave abnormality, consider anterior ischemia Abnormal ECG Compared to ECG 10/03/2019 13:35:53 Possible ischemia now present T-wave abnormality still present Electronically Signed On 10-05-19 08:25:37 [employer] by Rachid Laughlin
== END 2019-10-04 04:04 | disposition home or self-care (01) ==
LOC: ER 13:17
DX: T43.222A Poisoning by selective serotonin reuptake inhibitors, intentional self-harm, initial encounter (principal); F32.9 Major depressive disorder, single episode, unspecified
CPT/HCPCS: 36415; 80048; 80076; 80307; 80320; 80329; 81003; 81025; 85025; 85610; 85730; 93005; 99285

== ENCOUNTER 2020-03-05 17:28 | Emergency (ER) | payer OTHER ==
--- OUTSIDE RECORDS SUMMARY | 2020-03-05 17:30 | XMS REPORT | Clinical Summary ---
:1980 Author Organization [facility] Address [address] [place] [address] Care Team Providers Name Role Phone Epifanio Brooks DO Primary Care Provider Allergies No Known Allergies Medications No known medications Active Problems Not on file Family History Medical History Relation Name Comments [...] travel history available. Last Filed Vital Signs Not on file Plan of Treatment Health Maintenance Due Date Last Done Comments INFLUENZA VACCINE 03/03/2020 CERVICAL CANCER SCREENING 11/09/2020 11/09/2017 Results Not on fileafter 03/05/2019 Insurance Payer Benefit Plan / Subscriber ID Effective Dates Phone Addre ss Type Group ALLIED HEALTH ALLIED HEALTH xxxxxxxxx 2017-Present [employer] Advance Directives For more information, please contact: [phone] Type Date Recorded Patient Soc Analyst Explanati on Advance Directives, Living Will and Medical Power of Industrial Maintenance [place]
--- OUTSIDE RECORDS SUMMARY | 2020-03-05 17:31 | XMS REPORT | Continuity of Care Document ---
:1980 Author Organization [facility] t Address [address] [place] [address] Care Team Providers Name Role Phone Ha Brooks DO Primary Care Physician Payers Payer Name Policy Type Policy Number Effective Date Expiration Date S ource Problems This patient has no known problems. Allergies, Adverse Reactions, Alerts Allergy Allergy Status Severity Reaction(s) Onset Inactive Treating Comm ents Source Name Type Date Date Clinician No Known DA Active U 2018-08 [facility] [place] Family History Family Member Diagnosis Comments Start Date Stop Date Source Natural father Hypertension [facility]aternal aunt Breast cancer [facility]aternal aunt Stomach cancer [facility] Maternal aunt Bone cancer [facility] Social History Social Habit Start Date Stop Date Quantity Comments Source Sex Assigned At [facility] ethodist Alcohol intake 2018-07-22 2018-07-22 [facility] non-drinker of alcohol (finding) Smoking Status Start Date Stop Date Source Never smoker [facility] Medications This patient has no known medications. Procedures This patient has no known procedures. Plan of Care Planned Activity Planned Date Details Comments Source Future Scheduled 2020-11-09 Screening for [facility] Test 00:00:00 malignant neoplasm of cervix (procedure) [code = 202028432] Future Scheduled 2020-03-03 INFLUENZA VACCINE [place] [facility] Test 00:00:00 [code = INFLUENZA VACCINE] Results Test Description Test Time Test Comments Results Result Comments Source PROTHROMBIN TIME 2019-05-08 06:14:00 Test Item Value Reference Range Interpretation Comme nts PROTHROMBIN TIME PATIENT (test code = PTP) 10.9 secs 10.4-12.4 N THROMBOPLASTIN TIME [id number] 06:14:00 Test Item Value Reference Range Interpretation Comments THROMBOPLASTIN TIME PARTIAL (test 25.1 secs 22-38 N code = PTT) [id number] 06:14:00 Test Item Value Reference Range Interpretation Comments FIBRINOGEN (test code = FIB) 432 mg/dL 309-518 N CBC W/AUTO [id number] 08:29:00 Test Item Value Reference Range Interpretation Comments WHITE BLOOD CELL (test code = WBC) 14.3 K/mm3 6.6-12.1 H RED BLOOD CELL (test code = RBC) 3.71 M/mm3 3.45-5.01 N HEMOGLOBIN (test code = HGB) 11.5 g/dL 10.7-13.9 N HEMATOCRIT (test code = HCT) 34.7 % 32.1-42.1 N MEAN CELL VOLUME (test code = MCV) 94 fL 84.1-94.8 N MEAN CELL HGB (test code = MCH) 31.0 pg 27-35 N MEAN CELL HGB CONCETRATION (test 33.1 gm/dL 32.2-34.1 N code = MCHC) RED CELL DISTRIBUTION WIDTH (test 14.7 % 12.4-16.5 N code = RDW) PLATELET COUNT (test code = PLT) 127 K/mm3 133-385 L IMMATURE PLATELET FRACTION (test 0.0 % 0.0-10.8 N code = IPF) MEAN PLATELET VOLUME (test code = 11.3 fl 9.1-12.7 N MPV) NEUTROPHIL % (test code = NT%) 81.8 % 56.5-79.4 H LYMPHOCYTE % (test code = LY%) 10.4 % 14.3-34.3 L MONOCYTE % (test code = MO%) 5.7 % 5.1-10.4 N EOSINOPHIL % (test code = EO%) 0.1 % 0.1-3.0 N BASOPHIL % (test code = BA%) 0.2 % 0.1-1.0 N NEUTROPHIL # (test code = NT#) 11.7 K/mm3 LYMPHOCYTE # (test code = LY#) 1.5 K/mm3 MONOCYTE # (test code = MO#) 0.8 K/mm3 EOSINOPHIL # (test code = EO#) 0.01 K/mm3 BASOPHIL # (test code = BA#) 0.0 K/mm3 RBC MORPHOLOGY REQUIRED (test code NORMAL NORMAL = RBCM) PLATELET MORPHOLOGY REQUIRED (test NORMAL NORMAL code = PLTMR) PROTHROMBIN [id number] 01:49:00 Test Item Value Reference Range Interpretation Comments PROTHROMBIN TIME PATIENT (test code 11.2 secs 10.4-12.4 N = PTP) THROMBOPLASTIN TIME [id number] 01:49:00 Test Item Value Reference Range Interpretation Comments THROMBOPLASTIN TIME PARTIAL (test 24.3 secs 22-38 N code = PTT) [id number] 01:49:00 Test Item Value Reference Range Interpretation Comments FIBRINOGEN (test code = FIB) 350 mg/dL 309-518 N CBC W/AUTO [id number] 00:40:00 Test Item Value Reference Range Interpretation Comments WHITE BLOOD CELL (test code = WBC) 12.8 K/mm3 6.6-12.1 H RED BLOOD CELL (test code = RBC) 4.13 M/mm3 3.45-5.01 N HEMOGLOBIN (test code = HGB) 13.1 g/dL 10.7-13.9 N HEMATOCRIT (test code = HCT) 38.4 % 32.1-42.1 N MEAN CELL VOLUME (test code = MCV) 93 fL 84.1-94.8 N MEAN CELL HGB (test code = MCH) 31.7 pg 27-35 N MEAN CELL HGB CONCETRATION (test 34.1 gm/dL 32.2-34.1 N code = MCHC) RED CELL DISTRIBUTION WIDTH (test 14.7 % 12.4-16.5 N code = RDW) PLATELET COUNT (test code = PLT) 115 K/mm3 133-385 L IMMATURE PLATELET FRACTION (test 0.0 % 0.0-10.8 N code = IPF) MEAN PLATELET VOLUME (test code = 11.4 fl 9.1-12.7 N MPV) NEUTROPHIL % (test code = NT%) 82.8 % 56.5-79.4 H LYMPHOCYTE % (test code = LY%) 10.2 % 14.3-34.3 L MONOCYTE % (test code = MO%) 3.4 % 5.1-10.4 L EOSINOPHIL % (test code = EO%) 0.2 % 0.1-3.0 N BASOPHIL % (test code = BA%) 0.4 % 0.1-1.0 N NEUTROPHIL # (test code = NT#) 10.6 K/mm3 LYMPHOCYTE # (test code = LY#) 1.3 K/mm3 MONOCYTE # (test code = MO#) 0.4 K/mm3 EOSINOPHIL # (test code = EO#) 0.03 K/mm3 BASOPHIL # (test code = BA#) 0.1 K/mm3 RBC MORPHOLOGY REQUIRED (test code NORMAL NORMAL = RBCM) PLATELET MORPHOLOGY REQUIRED (test NORMAL NORMAL code = PLTMR) AG HEPATITIS B [id number] 23:01:00 Test Item Value Reference Range Interpretation Comments AG HEPATITIS B SURFACE (test code NONREACTIVE NONREACTIVE = HBSAG) AB HEPATITIS C [id number] 23:01:00 Test Item Value Reference Range Interpretation Comments AB HEPATITIS C (test code = NONREACTIVE NONREACTIVE HCVAB) SIGNAL TO CUTOFF (test code = 0.11 <0.80 N CUTOFF) AB [id number] 23:01:00 Test Item Value Reference Range Interpretation Comments AB TREPONEMA (test code = TREPAB) NONREACTIVE NONREACTIVE AB HIV 1 23:01:00 Test Item Value Reference Range Interpretation Comments AB HIV 1 2 (test NONREACTIVE NONREACTIVE Done by [facility] code = [id number]) 4th Gen HIV Ag/Ab Combo Screen AG HEPATITIS B [id number] 21:47:00 Test Item Value Reference Range Interpretation Comments AG HEPATITIS B SURFACE (test code NONREACTIVE NONREACTIVE = HBSAG) AB HEPATITIS C [id number] 21:47:00 Test Item Value Reference Range Interpretation Comments AB HEPATITIS C (test code = NONREACTIVE NONREACTIVE HCVAB) SIGNAL TO CUTOFF (test code = 0.11 <0.80 N CUTOFF) AB [id number] 21:47:00 Test Item Value Reference Range Interpretation Comments AB TREPONEMA (test code = TREPAB) NONREACTIVE NONREACTIVE CBC W/AUTO [id number] 20:22:00 Test Item Value Reference Range Interpretation Comments WHITE BLOOD CELL (test code = WBC) 10.4 K/mm3 6.6-12.1 N RED BLOOD CELL (test code = RBC) 4.30 M/mm3 3.45-5.01 N HEMOGLOBIN (test code = HGB) 13.4 g/dL 10.7-13.9 N HEMATOCRIT (test code = HCT) 40.5 % 32.1-42.1 N MEAN CELL VOLUME (test code = MCV) 94 fL 84.1-94.8 N MEAN CELL HGB (test code = MCH) 31.2 pg 27-35 N MEAN CELL HGB CONCETRATION (test 33.1 gm/dL 32.2-34.1 N code = MCHC) RED CELL DISTRIBUTION WIDTH (test 14.7 % 12.4-16.5 N code = RDW) PLATELET COUNT (test code = PLT) 132 K/mm3 133-385 L IMMATURE PLATELET FRACTION (test 0.0 % 0.0-10.8 N code = IPF) MEAN PLATELET VOLUME (test code = 11.6 fl 9.1-12.7 N MPV) NEUTROPHIL % (test code = NT%) 74.0 % 56.5-79.4 N LYMPHOCYTE % (test code = LY%) 13.6 % 14.3-34.3 L MONOCYTE % (test code = MO%) 7.1 % 5.1-10.4 N EOSINOPHIL % (test code = EO%) 0.8 % 0.1-3.0 N BASOPHIL % (test code = BA%) 0.4 % 0.1-1.0 N NEUTROPHIL # (test code = NT#) 7.7 K/mm3 LYMPHOCYTE # (test code = LY#) 1.4 K/mm3 MONOCYTE # (test code = MO#) 0.7 K/mm3 EOSINOPHIL # (test code = EO#) 0.08 K/mm3 BASOPHIL # (test code = BA#) 0.0 K/mm3 RBC MORPHOLOGY REQUIRED (test code NORMAL NORMAL = RBCM) PLATELET MORPHOLOGY REQUIRED (test NORMAL NORMAL code = PLTMR)
[2020-03-05] MEDS ORDERED: NA CHLORIDE 0.9% 1,000 ML ONE (19:18)
[2020-03-05] MEDS ORDERED: ONDANSETRON 4 MG/2 ML VIAL ONE (19:18)
[2020-03-05 19:28] LABS: Urine Blood NEGATIVE (NEG); Urine Glucose NEGATIVE (NEG); Urine Protein NEGATIVE (NEG); Urine pH 7.5 (5.0-7.0)
[2020-03-05 19:31] LABS: Absolute Lymphocytes (CBC) 1.7 K/uL (0.7-4.9); Basophils % 0.7 % (0-1.3); Hematocrit 42.1 % (36.0-45.0); MPV 10.2 fL (7.6-11.3); RBC Red Blood Cell Count 4.82 M/uL (3.86-4.86)
[2020-03-05 20:06] LABS: ALT/SGPT 32 U/L (12-78); Albumin 3.7 g/dL (3.4-5.0); Alkaline Phosphatase 67 U/L (45-117); BUN Blood Urea Nitrogen 15 mg/dL (7-18); Bicarbonate 25 mmol/L (21-32); Bilirubin Direct < 0.1 mg/dL (0-0.2); Bilirubin Total 0.5 mg/dL (0.2-1.0); Glucose Level 92 mg/dL (74-106); Lipase 94 U/L (73-393); Protein, Total 7.4 g/dL (6.4-8.2); Sodium Level 140 mmol/L (136-145)
[2020-03-05 20:07] LABS: AST/SGOT 19 U/L (15-37)
--- NOTE | 2020-03-05 21:13 | RAD REPORT ---
EXAM DESCRIPTION: CT - Abdomen Pelvis W Contrast - 03/05/2020 8:56 pm CLINICAL HISTORY: Abdominal pain COMPARISON: none. TECHNIQUE: Computed axial tomography of the abdomen pelvis was obtained. 100 cc Isovue-300 was admin istered intravenously. Oral contrast was not requested which limits evaluation of bowel. All CT scans are performed using dose optimization technique as appropriate and may include automated exposure control or mA/KV adjustment according to patient size. FINDINGS: Fatty liver The Spleen, pancreas, adrenal and kidneys appear unremarkable. 2.4 centimeter irregularly-shaped left ovarian cyst. No significant free fluid There is no evidence of diverticulitis. Normal appendix Umbilical hernia contains fat. The neck measures 15 millimeters IMPRESSION: 2.4 centimeter irregularly-shaped left ovarian cyst. No significant free fluid
--- NOTE | 2020-03-05 21:40 | ER ---
Nurse's Notes [facility] Name: Janay Penaloza Age: 39 yrs Sex: Female : 1980 Arrival Date: 03/05/2020 Time: 17:30 Bed 7 Private MD: Diagnosis: Nausea and vomiting Presentation: 03/05 17:34 Chief complaint: Patient states: Nausea and vomiting x 2 days. Has a kidney stone on ca1 the R side and has been trying to pass since 2 weeks ago. R flank pain, intermittent but is taking pain meds for it. Denies urinary symptoms. Denies diarrhea. Coronavirus screen: Client denies travel out of the [place] in the last 14 days. At this time, the client does not indicate any symptoms associated with coronavirus-19. Ebola Screen: Patient negative for fever greater than or equal to 101.5 degrees Fahrenheit, and additional compatible Ebola Virus Disease symptoms Patient denies exposure to infectious person. Patient denies travel to an Ebola-affected area in the 21 days before illness onset. No symptoms or risks identified at this time. Initial Sepsis Screen: Does the patient meet any 2 criteria? No. Patient's initial sepsis screen is negative. Does the patient have a suspected source of infection? No. Patient's initial sepsis screen is negative. Risk Assessment: Do you want to hurt yourself or someone else? Patient reports no desire to harm self or others. Onset of symptoms was March 05, 2020. 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 - Social history:: Smoking status: Patient denies any tobacco usage or history of. Screenin:22 Abuse screen: Denies threats or abuse. Denies injuries from another. Nutritional jl7 screening: No deficits noted. Tuberculosis screening: No symptoms or risk factors identified. 19:19 Fall Risk IV access (20 points). mg2 Assessment: 18:26 General: Appears in no apparent distress. uncomfortable, Behavior is calm, cooperative, jl7 appropriate for age. Pain: Complains of pain in right flank Pain currently is 8 out of 10 on a pain scale. Neuro: Level of Consciousness is awake, alert, obeys commands, Oriented to person, place, time, situation. Cardiovascular: Patient's skin is warm and dry. Respiratory: Airway is patent Respiratory effort is even, unlabored, Respiratory pattern is regular, symmetrical. GI: Abdomen is non-distended, Reports nausea. Derm: Skin is pink, warm \T\ dry. 19:18 General: Appears in no apparent distress. comfortable, Behavior is calm, cooperative. mg2 GI: Reports nausea, vomiting, since yesterday. : Reports pain in left flank(s). EENT: No signs and/or symptoms were reported regarding the EENT system. Musculoskeletal: Circulation, motion, and sensation intact. Capillary refill < 3 seconds. 20:38 Reassessment: Patient appears in no apparent distress at this time. Patient and/or mg2 family updated on plan of care and expected duration. Pain level reassessed. Patient is alert, oriented x 3, equal unlabored respirations, skin warm/dry/pink. 22:04 Reassessment: Patient denies pain at this time. Patient states feeling better. Patient mg2 states symptoms have improved. Vital Signs: 17:34 BP 106 / 67; Pulse 80; Resp 16 S; Temp 98.7(O); Pulse Ox 99% on R/A; Weight 61.69 kg ca1 (R); Height 5 ft. 2 in. (157.48 cm) (R); 18:26 BP 98 / 56; Pulse 72; Resp 17; Pulse Ox 99% ; Pain 8/10; jl7 20:39 Pulse 72; Resp 18; Pulse Ox 100% on R/A; mg2 22:04 BP 110 / 60; Pulse 89; Resp 18; Temp 98.5(O); Pulse Ox 100% on R/A; mg2 17:34 Body Mass Index 24.87 (61.69 kg, 157.48 cm) ca1 ED Course: 17:30 Patient arrived in ED. as 17:36 Triage completed. ca1 17:38 Arm band placed on right wrist. ca1 18:16 Ji, Jahala, RN is Primary Nurse. jl7 18:22 Patient has correct armband on for positive identification. Placed in gown. Bed in low jl7 position. Call light in reach. Side rails up X 1. Pulse ox on. NIBP on. 18:22 Urine collected: clean catch specimen, clear. jl7 18:27 Anirudh Ulloa PA is PHCP. jr8 18:27 Aldo Ospina MD is Attending Physician. jr8 19:15 Inserted saline lock: 20 gauge in right antecubital area, using aseptic technique. mg2 Blood collected. 19:18 No provider procedures requiring assistance completed. mg2 20:58 CT Abd/Pelvis - IV Contrast Only In Process Unspecified. EDMS 22:04 IV discontinued, intact, bleeding controlled, No redness/swelling at site. Pressure mg2 dressing applied. Administered Medications: 19:17 Drug: Zofran (Ondansetron) 4 mg Route: IVP; Site: right antecubital; mg2 20:35 Follow up: Response: No adverse reaction mg2 19:18 Drug: NS 0.9% 1000 ml Route: IV; Rate: 1000 ml; Site: right antecubital; mg2 20:38 Follow up: Response: No adverse reaction; IV Status: Completed infusion; IV Intake: mg2 1000ml Intake: 20:38 IV: 1000ml; Total: 1000ml. mg2 Outcome: 21:39 Discharge ordered by . jr8 22:04 Discharged to home ambulatory. mg2 22:04 Condition: stable 22:04 Discharge instructions given to patient, Instructed on discharge instructions, follow up and referral plans. medication usage, Demonstrated understanding of instructions, follow-up care, medications, Prescriptions given X 1. 22:05 Patient left the ED. mg2 Signatures: Dispatcher [employer] EDMS Sharri Montague Josh, PA PA jr8 Tea Ji RN RN jl7 Rico Camarillo RN RN mg2 Ivania Hall RN RN ca1
--- NOTE | 2020-03-05 21:40 | EDPHYS ---
Physician Documentation [facility] Name: Janay Penaloza Age: 39 yrs Sex: Female : 1980 Arrival Date: 03/05/2020 Time: 17:30 Bed 7 Private MD: ED Physician Aldo Ospina HPI: 03/05 21:33 This 39 yrs old Female presents to ER via Ambulatory with complaints of jr8 Vomiting. 21:33 The patient presents to the emergency department with nausea, vomiting. Onset: The jr8 symptoms/episode began/occurred gradually, 2 day(s) ago. Possible causes: unknown. The symptoms are aggravated by nothing. The symptoms are alleviated by nothing. Associated signs and symptoms: The patient has no apparent associated signs or symptoms. Severity of symptoms: At their worst the symptoms were moderate in the emergency department the symptoms are unchanged. The patient has not experienced similar symptoms in the past. The patient has been recently seen by a physician: with different complaint(s). Patient stated that she was recently on pain meds amongst other medications for kidney stones. Has been having pain to back but feeling better. For past two days has had vomiting now. 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 - Social history:: Smoking status: Patient denies any tobacco usage or history of. ROS: 21:33 Eyes: Negative for injury, pain, redness, and discharge, ENT: Negative for injury, jr8 pain, and discharge, Neck: Negative for injury, pain, and swelling, Cardiovascular: Negative for chest pain, palpitations, and edema, Respiratory: Negative for shortness of breath, cough, wheezing, and pleuritic chest pain, Back: Negative for injury and pain, MS/Extremity: Negative for injury and deformity, Skin: Negative for injury, rash, and discoloration, Neuro: Negative for headache, weakness, numbness, tingling, and seizure. 21:33 Abdomen/GI: Positive for nausea and vomiting, Negative for abdominal pain, diarrhea. Exam: 21:33 Eyes: Pupils equal round and reactive to light, extra-ocular motions intact. Lids and jr8 lashes normal. Conjunctiva and sclera are non-icteric and not injected. Cornea within normal limits. Periorbital areas with no swelling, redness, or edema. ENT: Nares patent. No nasal discharge, no septal abnormalities noted. Tympanic membranes are normal and external auditory canals are clear. Oropharynx with no redness, swelling, or masses, exudates, or evidence of obstruction, uvula midline. Mucous membranes moist. Neck: Trachea midline, no thyromegaly or masses palpated, and no cervical lymphadenopathy. Supple, full range of motion without nuchal rigidity, or vertebral point tenderness. No Meningismus. Cardiovascular: Regular rate and rhythm with a normal S1 and S2. No gallops, murmurs, or rubs. Normal PMI, no JVD. No pulse deficits. Respiratory: Lungs have equal breath sounds bilaterally, clear to auscultation and percussion. No rales, rhonchi or wheezes noted. No increased work of breathing, no retractions or nasal flaring. Abdomen/GI: Soft, Mild tenderness to mid abdomen, with normal bowel sounds. No distension or tympany. No guarding or rebound. No evidence of tenderness throughout. Back: No spinal tenderness. No costovertebral tenderness. Full range of motion. Skin: Warm, dry with normal turgor. Normal color with no rashes, no lesions, and no evidence of cellulitis. MS/ Extremity: Pulses equal, no cyanosis. Neurovascular intact. Full, normal range of motion. Neuro: Awake and alert, GCS 15, oriented to person, place, time, and situation. Cranial nerves II-XII grossly intact. Motor strength 5/5 in all extremities. Sensory grossly intact. Cerebellar exam normal. Normal gait. Vital Signs: 17:34 BP 106 / 67; Pulse 80; Resp 16 S; Temp 98.7(O); Pulse Ox 99% on R/A; Weight 61.69 kg ca1 (R); Height 5 ft. 2 in. (157.48 cm) (R); 18:26 BP 98 / 56; Pulse 72; Resp 17; Pulse Ox 99% ; Pain 8/10; jl7 20:39 Pulse 72; Resp 18; Pulse Ox 100% on R/A; mg2 22:04 BP 110 / 60; Pulse 89; Resp 18; Temp 98.5(O); Pulse Ox 100% on R/A; mg2 17:34 Body Mass Index 24.87 (61.69 kg, 157.48 cm) ca1 MDM: 18:29 Patient medically screened. jr8 21:33 Data reviewed: vital signs, nurses notes, lab test result(s), radiologic studies, CT jr8 scan. Data interpreted: Pulse oximetry: on room air is 100 %. Interpretation: normal. Counseling: I had a detailed discussion with the patient and/or guardian regarding: the historical points, exam findings, and any diagnostic results supporting the discharge/admit diagnosis, lab results, radiology results, the need for outpatient follow up, a family practitioner, to return to the emergency department if symptoms worsen or persist or if there are any questions or concerns that arise at home. Response to treatment: the patient's symptoms have markedly improved after treatment. ED course: Patient no longer vomiting. Feeling better. No acute findings on CT or labs. Could be GI viral illness vs medication reaction. Recommended discontinuing Tramadol and will send home on nausea medication. Knows to come back if new symptoms were to arise or if she felt worse . 03/05 18:22 Order name: Urine Dipstick--Ancillary (enter results); Complete Time: 20:40 bd 03/05 18:22 Order name: Urine --Ancillary (enter results); Complete Time: 20:40 03/05 18:58 Order name: Basic Metabolic Panel; Complete Time: 20:40 8 03/05 18:58 Order name: CBC with Diff; Complete Time: 20:40 8 03/05 18:58 Order name: Hepatic Function; Complete Time: 20:40 8 03/05 18:58 Order name: Lipase; Complete Time: 20:40 8 03/05 18:58 Order name: IV Saline Lock; Complete Time: 19:18 8 03/05 18:58 Order name: Labs collected and sent; Complete Time: 19:18 8 03/05 20:40 Order name: CT Abd/Pelvis - IV Contrast Only; Complete Time: 21:25 jr8 Administered Medications: 19:17 Drug: Zofran (Ondansetron) 4 mg Route: IVP; Site: right antecubital; mg2 20:35 Follow up: Response: No adverse reaction mg2 19:18 Drug: NS 0.9% 1000 ml Route: IV; Rate: 1000 ml; Site: right antecubital; mg2 20:38 Follow up: Response: No adverse reaction; IV Status: Completed infusion; IV Intake: mg2 1000ml Disposition: 03/06 08:45 Co-signature as Attending Physician, Aldo Ospina MD I agree with the assessment and [facility] plan of care. Disposition: 03/05/20 21:39 Discharged to Home. Impression: Nausea and vomiting. - Condition is Stable. - Discharge Instructions: Nausea and Vomiting, Adult. - Prescriptions for Zofran 4 mg Oral Tablet - take 1 tablet by ORAL route every 12 hours As needed; 20 tablet. - Medication Reconciliation Form, Thank You Letter, Antibiotic Education, Prescription Opioid Use form. - Follow up: Private Physician; When: 2 - 3 days; Reason: Recheck today's complaints, Continuance of care, Re-evaluation by your physician. - Problem is new. - Symptoms have improved. Signatures: Dispatcher [employer] Aldo Melton MD MD cha Roszak, Josh, PA PA jr8 Rico Camarillo RN RN mg2 Ivania Hall RN RN ca1 Corrections: (The following items were deleted from the chart) 03/05 22:05 21:39 03/05/2020 21:39 Discharged to Home. Impression: Nausea and vomiting. Condition mg2 is Stable. Forms are Medication Reconciliation Form, Thank You Letter, Antibiotic Education, Prescription Opioid Use. Follow up: Private Physician; When: 2 - 3 days; Reason: Recheck today's complaints, Continuance of care, Re-evaluation by your physician. Problem is new. Symptoms have improved. jr8
[2020-03-05 22:32] VITALS: O2SAT 100
[2020-03-05 22:33] VITALS: BP 110/60; TEMP 98.5
== END 2020-03-05 22:05 | disposition home or self-care (01) ==
LOC: ER 17:28
DX: R11.2 Nausea with vomiting, unspecified (principal); F32.9 Major depressive disorder, single episode, unspecified
CPT/HCPCS: 85025; 80048; 36415; 81025; 80076; 81003; 83690; 74177; Q9967; J7030; J2405; 96361; 96374; 99284

== ENCOUNTER 2021-01-13 16:26 | Emergency (ER) | payer BC ==
--- NOTE | 2021-01-13 17:13 | EDPHYS ---
Physician Documentation [facility] Name: Janay Penaloza Age: 40 yrs Sex: Female : 1980 Arrival Date: 01/13/2021 Time: 16:27 Bed 13 Private MD: ED Physician Fercho Mccann HPI: 01/13 17:08 This 40 yrs old Female presents to ER via Ambulatory with complaints of Facial rn Swelling. 17:08 The patient presents with pain, swelling. The problem is located in the right face. rn Onset: The symptoms/episode began/occurred yesterday. Duration: The symptoms are continuous. Modifying factors: The symptoms are alleviated by nothing, the symptoms are aggravated by nothing. Associated signs and symptoms: Pertinent positives: pain, swelling, Pertinent negatives: dysphagia, fever. Severity of symptoms: At their worst the symptoms were mild, in the emergency department the symptoms are unchanged. The patient has not experienced similar symptoms in the past. The patient has not recently seen a physician. Reports bad teeth, was having pain, then started to notice right facial swelling of cheek today, no fever. . Historical: - Allergies: 16:52 No Known Allergies; ll1 - PMHx: 16:52 Kidney stones; Depression; ll1 - PSHx: 16:52 ; ll1 - Immunization history:: Client reports receiving the 2nd dose of the Covid vaccine, Flu vaccine is not up to date. - Social history:: Smoking status: Patient denies any tobacco usage or history of. - Family history:: not pertinent. - Hospitalizations: : No recent hospitalization is reported. ROS: 17:08 Constitutional: Negative for fever, chills, and weight loss, Eyes: Negative for injury, rn pain, redness, and discharge, ENT: + dental pain and right cheek swelling Neck: Negative for injury Cardiovascular: Negative for chest pain, palpitations, and edema Respiratory: Negative for shortness of breath, cough, wheezing, and pleuritic chest pain, Neuro: Negative for headache, weakness, numbness, tingling, and seizure. Exam: 17:08 Constitutional: This is a well developed, well nourished patient who is awake, alert, rn and in no acute distress. Head/Face: Atraumatic. Eyes: Periorbital areas with no swelling, redness, or edema. ENT: + poor dentition, no evidence of dental abscess, + mild swelling right buccal space, no fluctuance or abscess. Neck: + non-tender right cervical LAD Vital Signs: 16:52 BP 106 / 71; Pulse 92; Resp 16; Temp 97.8; Pulse Ox 98% ; Weight 62.6 kg; Height 5 ft. ll1 2 in. (157.48 cm); Pain 10/10; 16:52 Body Mass Index 25.24 (62.60 kg, 157.48 cm) ll1 MDM: 16:57 Patient medically screened. rn 17:08 Differential diagnosis: dental caries, dental abscess, buccal space infection, facial rn cellulitis. Data reviewed: vital signs, nurses notes, and as a result, I will discharge patient. Counseling: I had a detailed discussion with the patient and/or guardian regarding: the historical points, exam findings, and any diagnostic results supporting the discharge/admit diagnosis, the need for outpatient follow up, to return to the emergency department if symptoms worsen or persist or if there are any questions or concerns that arise at home. Response to treatment: There is no appreciated change of the patient's symptoms at this time, and as a result, I will discharge patient. Special discussion: I discussed with the patient/guardian in detail that at this point there is no indication for admission to the hospital. It is understood, however, that if the symptoms persist or worsen the patient needs to return immediately for re-evaluation. Based on the history and exam findings, there is no indication for further emergent testing or inpatient evaluation. I discussed with the patient/guardian the need to see a dentist for further evaluation of the symptoms. Administered Medications: 17:30 Drug: Bactrim (trimethoprim-sulfamethoxazole) (160 mg-800 mg (DS) 1 tablet Route: PO; zb 17:32 Follow up: Response: Medication administered at discharge. zb 17:30 Drug: KeFLEX (cephalexin) 500 mg Route: PO; zb 17:33 Follow up: Response: Medication administered at discharge. zb Disposition: 01/13/21 17:12 Discharged to Home. Impression: Dental caries, Facial Cellulitis. - Condition is Stable. - Discharge Instructions: Cellulitis, Adult, Dental Pain. - Prescriptions for Keflex 500 mg Oral Capsule - take 1 capsule by ORAL route every 12 hours for 10 days; 20 capsule. Bactrim DS 800- 160 mg Oral Tablet - take 1 tablet by ORAL route every 12 hours for 10 days; 20 tablet. - Medication Reconciliation Form, Thank You Letter, Antibiotic Education, Prescription Opioid Use form. - Follow up: Private Physician; When: As needed; Reason: Recheck today's complaints, Re-evaluation by your physician. - Problem is new. - Symptoms have improved. Signatures: Fercho Mccann MD MD rn Oziel, STUART Jarrell RN ll1 Kristie Duarte RN RN zb Corrections: (The following items were deleted from the chart) 17:35 17:12 01/13/2021 17:12 Discharged to Home. Impression: Dental caries; Facial zb Cellulitis. Condition is Stable. Forms are Medication Reconciliation Form, Thank You Letter, Antibiotic Education, Prescription Opioid Use. Follow up: Private Physician; When: As needed; Reason: Recheck today's complaints, Re-evaluation by your physician. Problem is new. Symptoms have improved. rn
--- NOTE | 2021-01-13 17:13 | ER ---
Nurse's Notes [facility] Name: Janay Penaloza Age: 40 yrs Sex: Female : 1980 Arrival Date: 01/13/2021 Time: 16:27 Bed 13 Private MD: Diagnosis: Dental caries;Facial Cellulitis Presentation: 01/13 16:52 Chief complaint: Patient states: R upper jaw tooth pain since . No fever. ll1 Swelling to R side of face for 2 days. Radiates into R ear and R side of face. Coronavirus screen: Client denies travel out of the [place] in the last 14 days. At this time, the client does not indicate any symptoms associated with coronavirus-19. Ebola Screen: Patient denies travel to an Ebola-affected area in the 21 days before illness onset. Initial Sepsis Screen: Does the patient meet any 2 criteria? HR > 90 bpm. No. Patient's initial sepsis screen is negative. Does the patient have a suspected source of infection? Yes: Other: tooth infection. Risk Assessment: Do you want to hurt yourself or someone else? Patient reports no desire to harm self or others. Onset of symptoms was January 10, 2021. 16:52 Method Of Arrival: Ambulatory ll1 16:52 Acuity: VERNON 3 ll1 Historical: - Allergies: 16:52 No Known Allergies; ll1 - PMHx: 16:52 Kidney stones; Depression; ll1 - PSHx: 16:52 ; ll1 - Immunization history:: Client reports receiving the 2nd dose of the Covid vaccine, Flu vaccine is not up to date. - Social history:: Smoking status: Patient denies any tobacco usage or history of. - Family history:: not pertinent. - Hospitalizations: : No recent hospitalization is reported. Screenin:30 Abuse screen: Denies threats or abuse. Denies injuries from another. Nutritional zb screening: No deficits noted. Tuberculosis screening: No symptoms or risk factors identified. 17:35 Fall Risk None identified. zb Assessment: 17:33 General: Appears in no apparent distress. uncomfortable, Behavior is calm, cooperative. zb Pain: Complains of pain in face Pain currently is 2 out of 10 on a pain scale. Neuro: Level of Consciousness is awake, alert, obeys commands, Oriented to person, place, time, situation. Cardiovascular: Patient's skin is warm and dry. Respiratory: Airway is patent. Derm: Skin is intact. Musculoskeletal: Swelling present in right cheek, right ear and right jaw. Vital Signs: 16:52 BP 106 / 71; Pulse 92; Resp 16; Temp 97.8; Pulse Ox 98% ; Weight 62.6 kg; Height 5 ft. ll1 2 in. (157.48 cm); Pain 10/10; 16:52 Body Mass Index 25.24 (62.60 kg, 157.48 cm) ll1 ED Course: 16:27 Patient arrived in ED. am2 16:51 Arm band placed on Patient placed in an exam room, on a stretcher. ll1 16:54 Triage completed. ll1 16:57 Fercho Mccann MD is Attending Physician. rn 17:30 Kristie Duarte RN is Primary Nurse. zb 17:34 Patient has correct armband on for positive identification. Pulse ox on. NIBP on. zb 17:34 No provider procedures requiring assistance completed. Patient did not have IV access zb during this emergency room visit. Administered Medications: 17:30 Drug: Bactrim (trimethoprim-sulfamethoxazole) (160 mg-800 mg (DS) 1 tablet Route: PO; zb 17:32 Follow up: Response: Medication administered at discharge. zb 17:30 Drug: KeFLEX (cephalexin) 500 mg Route: PO; zb 17:33 Follow up: Response: Medication administered at discharge. zb Outcome: 17:12 Discharge ordered by . rn 17:34 Discharged to home ambulatory. zb 17:34 Condition: stable 17:34 Discharge instructions given to patient, Instructed on discharge instructions, follow up and referral plans. medication usage, Demonstrated understanding of instructions, follow-up care, medications, Prescriptions given X 2. 17:35 Patient left the ED. zb Signatures: Fercho Mccann MD MD rn Moreno, Amanda [facility] Wesly Ludwig RN RN [facility] Kristie Duarte RN RN zb
[2021-01-13 17:41] VITALS: BP 106/71; TEMP 97.8; O2SAT 98
[2021-01-13] MEDS ORDERED: CEPHALEXIN 250 MG CAP ONE (17:46)
[2021-01-13] MEDS ORDERED: SMZ./TMP. 800/160 MG TABLET ONE (17:46)
== END 2021-01-13 17:35 | disposition home or self-care (01) ==
LOC: ER 16:26
DX: L03.211 Cellulitis of face (principal); K02.9 Dental caries, unspecified
CPT/HCPCS: 99283

== ENCOUNTER 2023-04-02 14:55 | Emergency (ER) | payer BC ==
--- OUTSIDE RECORDS SUMMARY | 2023-04-02 15:11 | XMS REPORT | Continuity of Care Document ---
:1980 Author Organization [facility] t Address [address] [place] [address] [address] [place] [address] Care Team Providers Name Role Phone Epifanio Brooks DO Primary Care Physician [phone] Kailash Petty Attending Clinician Unavailable DENNY_Martin_Elsy Attending Clinician Unavailable GC_AMINTA_Rivera_Liz Attending Clinician Unavailable DENNY_Ludmila Attending Clinician Unavailable Lab, Adc Fam Pob I Attending Clinician Unavailable Nasreen Anna Attending Clinician NASREEN RICARDO Attending Clinician Unavailable SYLWIA VARGAS Attending Clinician Unavailable Sylwia Husain Attending Clinician [phone] Doctor Unassigned, Valinda Attending Clinician Unavailable Kailash Petty Admitting Clinician Unavailable DENNY_Martin_Elsy Admitting Clinician Unavailable GC_AMINTA_Rivera_Liz Admitting Clinician Unavailable DENNY_Ludmila Admitting Clinician Unavailable Payers Payer Name Policy Type Policy Number Effective Date Expiration Date S ource [employer] [place] P [id number] Women(HTW) [place] [id number] 2022 00:00:00 [place] Problems Condition Condition Condition Status Onset Resolution Last Treating Co mments Source Name Details Category Date Date Treatment Clinician Date Uric acid Uric Acid Problem Active Julianna via renal Renal 11-09 Medical calculus Calculus 00:00: 00 Cyst of Cyst of Problem Active [facility] ovary Ovary 11-09 Medical 00:00: 00 Cervical Cervical Disease Active Overview: [facility] Papanicola Papanicola 8-10 Pap it y of ou smear ou smear 00:00[place] pap and Medic al within within hpv neg, Branch last 12 last 12 see care months months everywher e Other Other Disease Active Univers general general 8-10 ity of counseling [place] and advice 00 Me dical for for Branch contracept contracept juliocesar juliocesar management management Ovarian Ovarian Disease Active Overview: Univ ers cyst cyst 8 Patient ity of 00:00: reports [place] 00 noted on Medical usg , no Branch records todayReco rds received, see scanned records Allergies, Adverse Reactions, Alerts Allergy Allergy Status Severity Reaction(s) Onset Inactive Treating Comm ents Source Name Type Date Date Clinician No Known DA Active U 2018-08 [facility] No Known DA Active U 2018-08 [facility] [place] NO KNOWN Drug Active Univers ALLERGIE Class ity of S [facility] Family History Family Member Diagnosis Comments Start Date Stop Date Source Natural father [facility] Maternal aunt Stomach cancer [facility] Maternal aunt Bone cancer [facility] Social History Social Habit Start Date Stop Date Quantity Comments Source Exposure to Not sure University of SARS-CoV-2 (event) [facility] Gender identity [facility] Tobacco use and 2020-03-12 2020-03-12 Never used Universit y of exposure 00:00:00 00:00:00 [facility] History of Social 2019-03-24 2019-03-[address] function 00:00:00 00:00:00 Hospital Alcohol intake 2018-07-22 2018-07-22 Current [facility] 00:00:00 00:00:00 non-drinker of Hospital alcohol (finding) Sex Ass[birth year] At [birth year] [facility] 00:00:00 00:00:00 Hospital Smoking Status Start Date Stop Date Source Unknown if ever smoked [facility] Medical Branch Never smoker [facility] Medical Branch Medications Ordered Filled Start Stop Current Ordering Indication Dosage Frequency Signature Comments Components Source Medication Medication Date Date Medication? Clinician (SIG) Name Name SERTraline 2020-0 Yes 100mg Take 100 [place] 100 mg 8-10 mg by ity of tablet 19:27: mouth [place] 33 daily. Medical Branch SERTraline 2020-0 Yes 100mg Take 100 [place] 100 mg 8-10 mg by ity of tablet 19:27: mouth [place] 33 daily. Medical Branch SERTraline 2020-0 Yes 100mg Take 100 [place] 100 mg 8-10 mg by ity of tablet 19:27: mouth [place] 33 daily. Medical Branch SERTraline 2020-0 Yes 100mg Take 100 [place] 100 mg 8-10 mg by ity of tablet 19:27: mouth [place] 33 daily. Medical Branch SERTraline 2020-0 Yes 100mg Take 100 [place] 100 mg 8-10 mg by ity of tablet 19:27: mouth [place] 33 daily. Medical Branch SERTraline 2020-0 Yes 100mg Take 100 [place] 100 mg 8-10 mg by ity of tablet 19:27: mouth [place] 33 daily. Medical Branch SERTraline 2020-0 Yes 100mg Take 100 [place] 100 mg 8-10 mg by ity of tablet 19:27: mouth [place] 33 daily. Medical Branch SERTraline 2020-0 Yes 100mg Take 100 [place] 100 mg 8-10 mg by ity of tablet 19:27: mouth [place] 33 daily. Medical Branch Immunizations Ordered Immunization Filled Immunization Date Status Commen ts Source Name Name COVID-19, mRNA, COVID-19, mRNA, 2020-12-17 Completed [facility] LNP-S, PF, 100 LNP-S, PF, 100 11:01:34 mcg/0.5 mL dose mcg/0.5 mL dose (Moderna) (Moderna) COVID-19, mRNA, COVID-19, mRNA, 2020-11-09 Completed [facility] LNP-S, PF, 100 LNP-S, PF, 100 12:05:26 mcg/0.5 mL dose mcg/0.5 mL dose (Moderna) (Moderna) Tdap Tdap 2019-05-08 Completed [facility] 00:00:00 Vital Signs Vital Name Observation Time Observation Value Comments Source BP Diastolic 2022-10-24 00:00:00 82 mm[Hg] Marzena Garza edical Height 2022-10-24 00:00:00 62 [in_i] Marzena Garza [facility] BMI (Body Mass 2022-10-24 00:00:00 26 kg/m2 [facility] Index) BP Systolic 2022-10-24 00:00:00 123 mm[Hg] [facility] Body Weight 2022-10-24 00:00:00 142 [lb_av] Marzena Garza [facility] Systolic blood 2020-03-12 19:09:00 127 mm[Hg] Univer sity [facility] Diastolic blood 2020-03-12 19:09:00 75 mm[Hg] Unive rsity [facility] Heart rate 2020-03-12 19:09:00 72 /min [facility] Body temperature 2020-03-12 19:09:00 36.61 Vanessa [facility] Respiratory rate 2020-03-12 19:09:00 16 /min [facility] Body height 2020-03-12 19:09:00 157.5 cm [facility] Body weight 2020-03-12 19:09:00 64.864 kg [facility] BMI 2020-03-12 19:09:00 26.16 kg/m2 [facility] Procedures Procedure Date / Time Performed Performing Clinician Sourc e MAMMO, screening, 2022-10-24 00:00:00 [facility] digital, bilateral ASSIGNMENT OF BENEFITS 2020-03-12 18:45:48 Doctor Unassigned, No [facility] Caesarean Section 2011-07-30 00:00:00 [facility] Plan of Care Planned Activity Planned Date Details Comments Source Future Scheduled 2023-03-28 COVID-19 VACCINE (#1) [facility] Test 17:12:16 [code = COVID-19 VACCINE Hos pital (#1)] Future Scheduled 2023-03-28 Screening for malignant [facility] Test 17:12:16 neoplasm of cervix Hospital (procedure) [code = 064394396] Future Scheduled 2023-03-28 BREAST CANCER SCREENING [facility] 17:12:16 [code = BREAST CANCER Hospit al SCREENING] Future Scheduled 2023-03-28 INFLUENZA VACCINE (#1) [facility] Test 17:12:16 [code = INFLUENZA Hospital VACCINE (#1)] Future Scheduled 2023-01-17 COVID-19 VACCINE (#1) [facility] Test 10:35:08 [code = COVID-19 VACCINE Hos pital (#1)] Future Scheduled 2023-01-17 Screening for malignant [facility] Test 10:35:08 neoplasm of cervix Hospital (procedure) [code = 814523767] Future Scheduled 2023-01-17 BREAST CANCER SCREENING [facility] 10:35:08 [code = BREAST CANCER Hospit al SCREENING] Future Scheduled 2023-01-17 INFLUENZA VACCINE [code [facility] 10:35:08 = INFLUENZA VACCINE] Hospita l Future Scheduled 2022-11-01 Screening for malignant [facility] Test 18:51:59 neoplasm of cervix Hospital (procedure) [code = 877472475] Future Scheduled 2022-11-01 BREAST CANCER SCREENING [facility] 18:51:59 [code = BREAST CANCER Hospit al SCREENING] Future Scheduled 2022-11-01 INFLUENZA VACCINE [code [facility] Test 18:51:59 = INFLUENZA VACCINE] Hospita l Future Scheduled 2022-11-01 COVID-19 VACCINE (#1) [facility] Test 18:51:59 [code = COVID-19 VACCINE Hos pital (#1)] Future Scheduled 2022-11-01 Screening for malignant [facility] Test 18:51:59 neoplasm of cervix Hospital (procedure) [code = 904484847] Future Scheduled 2022-11-01 BREAST CANCER SCREENING [facility] 18:51:59 [code = BREAST CANCER Hospit al SCREENING] Future Scheduled 2022-11-01 INFLUENZA VACCINE [code [facility] 18:51:59 = INFLUENZA VACCINE] Hospita l Future Scheduled 2022-11-01 COVID-19 VACCINE (#1) [facility] Test 18:51:59 [code = COVID-19 VACCINE Hos pital (#1)] Future Scheduled 2022-11-01 Screening for malignant [facility] Test 18:51:59 neoplasm of cervix Hospital (procedure) [code = 652901678] Future Scheduled 2022-11-01 BREAST CANCER SCREENING [facility] 18:51:59 [code = BREAST CANCER Hospit al SCREENING] Future Scheduled 2022-11-01 INFLUENZA VACCINE [code [facility] 18:51:59 = INFLUENZA VACCINE] Hospita Future Scheduled 2022-11-01 COVID-19 VACCINE (#1) [facility] Test 18:51:59 [code = COVID-19 VACCINE Hos pital (#1)] Future Scheduled 2022-11-01 Screening for malignant [facility] Test 18:51:59 neoplasm of cervix Hospital (procedure) [code = 691331248] Future Scheduled 2022-11-01 BREAST CANCER SCREENING [facility] 18:51:59 [code = BREAST CANCER Hospit al SCREENING] Future Scheduled 2022-11-01 INFLUENZA VACCINE [code [facility] 18:51:59 = INFLUENZA VACCINE] Hospita Future Scheduled 2022-11-01 COVID-19 VACCINE (#1) [facility] Test 18:51:59 [code = COVID-19 VACCINE Hos pital (#1)] Future Scheduled 2022-11-01 Screening for malignant [facility] Test 18:51:59 neoplasm of cervix Hospital (procedure) [code = 466515696] Future Scheduled 2022-11-01 BREAST CANCER SCREENING [facility] 18:51:59 [code = BREAST CANCER Hospit al SCREENING] Future Scheduled 2022-11-01 INFLUENZA VACCINE [code [facility] 18:51:59 = INFLUENZA VACCINE] Hospita Future Scheduled 2022-11-01 COVID-19 VACCINE (#1) [facility] Test 18:51:59 [code = COVID-19 VACCINE Hos pital (#1)] Future Scheduled 2022-11-01 Screening for malignant [facility] Test 18:51:59 neoplasm of cervix Hospital (procedure) [code = 915999064] Future Scheduled 2022-11-01 BREAST CANCER SCREENING [facility] 18:51:59 [code = BREAST CANCER Hospit al SCREENING] Future Scheduled 2022-11-01 INFLUENZA VACCINE [code [facility] 18:51:59 = INFLUENZA VACCINE] Hospita Future Scheduled 2022-11-01 COVID-19 VACCINE (#1) [facility] Test 18:51:59 [code = COVID-19 VACCINE Hos pital (#1)] Future Scheduled 2022-11-01 Screening for malignant [facility] Test 18:51:59 neoplasm of [facility] Hospital (procedure) [code = 351377472] Future Scheduled 2022-11-01 BREAST CANCER SCREENING [facility] 18:51:59 [code = BREAST CANCER Hospit al SCREENING] Future Scheduled 2022-11-01 INFLUENZA VACCINE [code [facility] Test 18:51:59 = INFLUENZA VACCINE] Hospita l Future Scheduled 2022-11-01 COVID-19 VACCINE (#1) [facility] Test 18:51:59 [code = COVID-19 VACCINE Hos pital (#1)] Diagnostic Test 2022-10-24 Cytomegalovirus Ab [facility] Pending 00:00:00 [Titer] in Serum or Plasma by Latex agglutination [code = 5121-9] Diagnostic Test 2022-10-24 Weight of 24 hour [facility] Pending 00:00:00 Specimen [code = 3153-4] Encounters Start End Encounter Admission Attending Care Care Encounter Source Date/Time Date/Time Type Type Clinicians Facility Department ID 2021-05-16 Outpatient [facility] [id number] [facility] 19:08:46 [id number] [facility] 2023-02-04 2023-02-04 Outpatient SFA SFA [id number] Juan M 10:52:31 10:52:31 [id number] [facility] [place] 2023-01-07 2023-01-07 Outpatient SFA SFA [id number] Juan M 11:59:54 11:59:54 [id number] [facility] [place] 2022-12-20 2022-12-20 Outpatient SFA SFA [id number] Juan M 09:13:32 09:13:32 [id number] [place] 2022-12-18 2022-12-18 Outpatient SFA SFA [id number] Juan M 15:17:32 15:17:32 [id number] [facility] [place] 2022-11-26 2022-11-26 Outpatient SFA SFA [id number] Juan M 14:12:00 14:12:00 [id number] [facility] [place] 2022-11-24 2022-11-24 Outpatient JASPER Petty [facility] [id number] [facility] 12:00:00 12:00:00 Kailash 69 [facility] 2022-11-14 2022-11-14 Outpatient GC_SWHAOMC_ PRIV PRIV [id number] [facility] 00:00:00 00:00:00 JovannyNadiaElsy [id number] [facility] 2022-11-12 2022-11-12 Outpatient SFA SFA [id number] Juan M 11:02:03 11:02:03 [id number] [facility] 2022-11-11 2022-11-11 Outpatient JASPER Petty, [facility] [id number] [facility] 12:00:00 12:00:00 Kailash Macie [facility] 2022-10-30 2022-10-30 Outpatient GC_SWHAOMC_ PRIV PRIV [id number] [facility] 00:00:00 00:00:00 AlbertoElsy [id number] [facility] 2022-10-24 2022-10-24 Outpatient GC_SWHAOMC_ PRIV PRIV [id number] [facility] 00:00:00 00:00:00 AlbertoElsy [id number] [facility] 2022-10-24 2022-10-24 Outpatient GC_SWHAOMC_ PRIV PRIV [id number] [facility] 00:00:00 00:00:00 AlbertoElsy [id number] [facility] 2022-10-24 2022-10-24 Kailash PRIV [facility] 24 [facility] 00:00:00 00:00:00 [facility] SAUL Patrick_ : [address], [place] [address] , Ph. 2022-10-23 2022-10-23 Outpatient GC_SWHAOMC_ PRIV PRIV [id number] [facility] 00:00:00 00:00:00 AlbertoElsy [id number] [facility] 2020-12-15 2020-12-15 Outpatient GC_SWHAHL_R PRIV PRIV [id number] [facility] 09:42:00 09:42:00 ivera_Liz [id number] [facility] 2020-11-20 2020-11-20 Outpatient GC_SWHATBIC PRIV PRIV [id number] [facility] 02:25:00 02:25:00 _[place] [id number] Medic al 2020-10-09 2020-10-09 Laboratory Lab, Adc Fam Pob I [facility] 1.2. [id number] Univers 10:21:14 10:41:14 Only Marcello Nasreen [facility] [id number] ity of [place] 4.2.7.2.686 Umer as Professio [id number] Fl dical nal [address] 2020-10-09 2020-10-09 [id number] Univers 10:40:00 10:40:00 NASREEN ity [facility] 2020-03-26 2020-03-26 [facility] [id number] Univers 10:30:00 10:30:00 SYLWIA calderon [facility] 2020-03-20 2020-03-20 [facility] [id number] Univers 00:00:00 00:00:00 Sylwia Scanlon PSYCHIATRIC NURSE PRACTITIONER 350.1.13.10 ity of [facility] 4.2.7.2.686 Umer as MATERNAL [id number] [facility] [address] [place] [address] 2020-03-12 2020-03-12 Office [facility] [id number] Univers 13:49:41 15:18:01 Visit Sylwia C PSYCHIATRIC NURSE PRACTITIONER [id number] ity of [facility] 4.2.7.2.686 Umer as MATERNAL [id number] [facility] [address] [place] [address] 2020-03-12 2020-03-12 [facility] [id number] Univers 14:15:00 14:15:00 SYLWIA calderon [facility] 2020-03-12 2020-03-12 Orders Doctor HART [id number] Univers 00:00:00 00:00:00 Only Unassigned, LINDA 350.1.13.10 ity of [place] [facility] 4.2.7.2.686 Umer as [id number] Medi marcia 009 Branch Results Test Description Test Time Test Comments Results Result Comments Source TSH, THIRD GENERATION 2022-12-22 02:55:00 Test Item Value Reference Range Interpretation Comme nts TSH, THIRD GENERATION (test code = 2821) 0.992 UIU/ML 0.400-4.100 BASIC METABOLIC [id number] 01:07:02 Test Item Value Reference Range Interpretation Comments GLUCOSE (test code = 2217) 99 MG/DL 70-99 BUN (test code = 2208) 21 MG/DL 6-20 H CREATININE (test code = 2214) 0.57 MG/DL 0.60-1.30 L eGFR (2020 CKD-EPI) (test 118 ML/MIN/1.73 >60 code = 19039) SODIUM (test code = 2231) 142 MEQ/L 133-146 POTASSIUM (test code = 2228) 4.1 MEQ/L 3.5-5.4 CHLORIDE (test code = 2215) 106 MEQ/L 95-107 CARBON DIOXIDE (test code = 22 MEQ/L 2205) CALCIUM (test code = 2209) 9.7 MG/DL 8.5-10.5 LIPID [id number] 01:07:02 Test Item Value Reference Range Interpretation Comments CHOLESTEROL (test 182 MG/DL <200 code = 2210) TRIGLYCERIDES (test 156 MG/DL <150 H code = 2232) HDL CHOLESTEROL (test 40 MG/DL >39 code = 2220) CALC LDL CHOL (test 115 MG/DL <100 H NOTE: C ALCULATED LDL code = 2237) IS BASED ON SHAD-FITZGERALD METHOD WHICHINCLUDES ADJUSTABLE TRIGLYCERIDE:VL DL CHOLESTEROL RAT IO.THIS FACTOR VARIES B Y MEASURED TRIGLY CERIDE AND NON-HDLCHOL ESTEROL CONCENTRATIONS WITH INCREASED CALCU LATED LDL SEENIN HIGH ER TRIGLYCERIDE OR LOWER NON-HDL SPECIME NS. FOR MOREINFORMATION , SEE CLIENT ANNOUNCE MENT AT [email or web address] [email or web address] LDL/HDL 2.88 RATIO <3.22 (test code = 2238) HEMOGLOBIN [id number] 02:56:44 Test Item Value Reference Range Interpretation Comments HEMOGLOBIN A1c (test 5.3 % 4.2-5.6 UNLESS OTHERWISE code = 68173) INDICATED, ALL TESTING PERFORMED AT [facility] [address] [place] [address] TERRI DAVID DIRECTOR: Baltazar KIRKLAND VALENTIN NUMBER [id number] CAP ACCREDITATION N O. [id number] CBC W/AUTO DIFF WITH [id number] 02:26:59 Test Item Value Reference Range Interpretation Comments WBC (test code = 6.0 K/UL 3.5-11.0 1001) RBC (test code = 4.85 M/UL 3.80-5.40 1002) HEMOGLOBIN (test code 14.8 G/DL 11.5-15.5 = 1003) HEMATOCRIT (test code 43.4 % 34.0-45.0 = 1004) MCV (test code = 89.5 fL 80.0-99.0 1005) MCH (test code = 30.5 PG 25.0-33.0 1006) MCHC (test code = 34.1 G/DL 31.0-36.0 1007) RDW (test code = 12.2 % 11.5-15.0 1038) NEUTROPHILS (test 68.2 % code = 1008) LYMPHOCYTES (test 22.9 % code = 1010) MONOCYTES (test code 6.4 % = 1011) EOSINOPHILS (test 1.5 % code = 1012) BASOPHILS (test code 0.5 % = 1013) IMMATURE GRANULOCYTES 0.5 % (test code = 1036) NUCLEATED RBCS (test 0.0 /100 WBC'S See_Comment [Aut omated code = 1065) message] The sy stem which generated this result transmitted reference range : 0.0. The refere nce range was not u sed to interpret th is result as normal/abnormal . PLATELET COUNT (test 201 K/UL 130-400 code = 1015) ABSOLUTE NEUTROPHILS 4.06 K/UL 1.50-7.50 (test code = 1066) ABSOLUTE LYMPHOCYTES 1.36 K/UL 1.00-4.00 (test code = 1067) ABSOLUTE MONOCYTES 0.38 K/UL 0.20-1.00 (test code = 1068) ABSOLUTE EOSINOPHILS 0.09 K/UL 0.00-0.50 (test code = 1040) ABSOLUTE BASOPHILS 0.03 K/UL 0.00-0.20 (test code = 1069) ABS IMMATURE 0.03 K/UL 0.00-0.10 GRANULOCYTES (test code = 1020) ABS NUCLEATED RBCS 0.00 K/UL 0.00-0.11 (test code = 93371) PROTHROMBIN [id number] 06:14:00 Test Item Value Reference Range Interpretation Comments PROTHROMBIN TIME PATIENT (test code 10.9 secs 10.4-12.4 N = PTP) THROMBOPLASTIN TIME [id number] 06:14:00 Test Item Value Reference Range Interpretation Comments THROMBOPLASTIN TIME PARTIAL (test 25.1 secs 22-38 N code = PTT) [id number] 06:14:00 Test Item Value Reference Range Interpretation Comments FIBRINOGEN (test code = FIB) 432 mg/dL 309-518 N CBC W/AUTO [id number] 08:29:00 Test Item Value Reference Range Interpretation [...] (test NORMAL NORMAL code = PLTMR) PROTHROMBIN [id number] 01:49:00 Test Item Value Reference Range Interpretation Comments PROTHROMBIN TIME PATIENT (test code 11.2 secs 10.4-12.4 N = PTP) THROMBOPLASTIN TIME [id number] 01:49:00 Test Item Value Reference Range Interpretation Comments THROMBOPLASTIN TIME PARTIAL (test 24.3 secs 22-38 N code = PTT) [id number] 01:49:00 Test Item Value Reference Range Interpretation Comments FIBRINOGEN (test code = FIB) 350 mg/dL 309-518 N CBC W/AUTO [id number] 00:40:00 Test Item Value Reference Range Interpretation [...] NORMAL code = PLTMR) AG HEPATITIS B [id number] 23:01:00 Test Item Value Reference Range Interpretation Comments AG HEPATITIS B SURFACE (test code NONREACTIVE NONREACTIVE = HBSAG) AB HEPATITIS C [id number] 23:01:00 Test Item Value Reference Range Interpretation Comments AB HEPATITIS C (test code = NONREACTIVE NONREACTIVE HCVAB) SIGNAL TO CUTOFF (test code = 0.11 <0.80 N CUTOFF) AB [id number] 23:01:00 Test Item Value Reference Range Interpretation Comments AB TREPONEMA (test code = TREPAB) NONREACTIVE NONREACTIVE AB HIV 1 23:01:00 Test Item Value Reference Range Interpretation Comments AB HIV 1 2 (test NONREACTIVE NONREACTIVE [facility] code = [id number]) 4th Gen HIV Ag/Ab Combo Screen AG HEPATITIS B [id number] 21:47:00 Test Item Value Reference Range Interpretation Comments AG HEPATITIS B SURFACE (test code NONREACTIVE NONREACTIVE = HBSAG) AB HEPATITIS C [id number] 21:47:00 Test Item Value Reference Range Interpretation Comments AB HEPATITIS C (test code = NONREACTIVE NONREACTIVE HCVAB) SIGNAL TO CUTOFF (test code = 0.11 <0.80 N CUTOFF) AB [id number] 21:47:00 Test Item Value Reference Range Interpretation Comments AB TREPONEMA (test code = TREPAB) NONREACTIVE NONREACTIVE CBC W/AUTO [id number] 20:22:00 Test Item Value Reference Range Interpretation [...] REQUIRED (test NORMAL NORMAL code = PLTMR) Notes Date/Time Note Provider Source 2019-07-11 08:11:00-00:00 [id number] [facility] [address], [place] [address] PATIENT NAME: DEBORAH JEAN ADMIT DATE: 05/06/19 ACCOUNT NO: [id number] ROOM NO: [id number] AGE: 38 SEX: F ADMITTING PHYSICIAN: Kailash Petty MD ATTENDING PHYSICIAN: Kailash Petty MD ADMISSION DATE: 05/06/2019 DISCHARGE DATE: 05/10/2019 ADMISSION DIAGNOSES: 1. A 36-week . 2. Previous section. 3. Labor. PROCEDURE PERFORMED: Repeat low-transver se delivery with T extension. DISCHARGE MEDICATIONS: Include Falconer, Motrin and vitamin. DISCHARGE EXAM: Benign with skin incision noted to be clean, dry, and intact. SUMMARY OF HOSPITAL COURSE: The patient presented at 36 weeks 5 days' gestation and early labor. She underwent repeat as previously dictated. Postoperatively, the patient did well. S he remained afebrile with stable vital signs throughout hospital co urse. Hemoglobin and hematocrit were stable at 11.5 and 34.7 postoperatively. Her epidural was dorinda nued on postoperative day #1 with good pain control. She was transitioned to p.o. pain meds on postoperative day #2 with continued good pain control. She tolerated some diet, but not much and noted some swelling on postoperative day #3 with increased p.o. intake and ambulation. She was stable for discharge on post operative day #4. She was discharged home in good condition. DISCHARGE INSTRUCTIONS: Woun d care instructions were discussed with the patient and family. She was scheduled for followup in [facility] office in 2 weeks for incision check. Dictated By: Kailash Petty MD WT: DS:EDMUND/JERRY/RUDY Conf#: [id number]/DID#: [id number] Authenticated by Kailash Petty MD On 2018 07:43:55 AM Electronically Signed by Kailash Petty MD o n 08/01/19 at 0744 PATIENT NAME: DEBORAH JEAN 81 2019-05-10 08:40:00-00:00 [facility] OB Postpart Progr Note REPORT#:[id number] REPORT STATUS: Signed DATE:05/10/19 TIME: 0840 PATIENT: DEBORAH JEAN UNIT #: [id number] ROOM/BED: [address] : 82 AGE: 38 SEX: F ATTEND: Isi Petty MD ADM AUTHOR: Kailash Petty MD * ALL edits or amendments must be made on the [employer]/computer document * Subjective Subjective Status/Day: post operative (d4) Patient reports: Patient reports: Yes no complaints, Yes pain management effective, Yes tolerating po well, Yes tolerating ambulation Objective Nursing Documentation Review Nursing Data: The data set between the solid lines has been im ported from nursing documentation. Any exceptions have been noted be low under Provider comments. Feeding preference: Provider comments on imported nursing data: [] General VS: Vital Signs: Date Time Temp Pulse Resp B/P B/P Pulse O2 O2 F low FiO2 Mean Ox Delivery Rate 05/09 2325 98.8 101 20 112/72 05/09 2325 98.8 101 20 11272 85.5 05/09 1645 98.7 76 18 109/68 05/09 1300 98.3 89 18 118/74 Patient Weight Weight (lb): 168 Weight (oz): Weight (kg): 76.204 Physical Exam Neuro: Exam: alert, oriented x3 Abdomen: soft, no abnormal tenderness Incision site: well approximated edges, dry, no drainage, no inflammation Uterus: firm, non-tender Diagnosis, Assessment Plan Diagnosis, Assessment Plan Assessment: nml progress Plan: routine care, discharge today at 0841 [facility] #:[id number] END OF REPORT 2019-05-09 08:05:00-00:[address] [facility] ([facility]) OB Postpart Progr Note REPORT#:[id number] REPORT STATUS: Signed DATE:05/09/19 TIME: 804 PATIENT: DEBORAH JEAN UNIT #: [id number] ROOM/BED: [address] : [address] AGE: 38 SEX: F ATTEND: Isi Petty MD ADM AUTHOR: Kailash Petty MD * ALL edits or amendments must be made on the [employer]/computer document * Subjective Subjective Status/Day: post operative (d3) Patient reports: Comments: pain controlled with meds. c/o swelling. augie diet, not much appetite. Objective Nursing Documentation Review Nursing Data: The data set between the solid lines has been im ported from nursing documentation. Any exceptions have been noted be low under Provider comments. Feeding preference: Provider comments on imported nursing data: [] General VS: Vital Signs: Date Time Temp Pulse Resp B/P B/P Pulse O2 O2 F low FiO2 Mean Ox Delivery Rate 05/09 0402 98.0 92 18 100/63 05/09 0030 98.2 96 18 108/67 05/08 2000 98.0 94 18 97/58 05/08 1609 98.3 100 18 116/74 05/08 1200 98.5 98 18 100/67 05/08 0822 98.7 101 20 99/66 Patient Weight Weight (lb): 168 Weight (oz): Weight (kg): 76.204 Physical Exam Neuro: Exam: alert, oriented x3 Abdomen: soft, no abnormal tenderness Incision site: well approximated edges, dry, no drainage, no inflammation Uterus: firm, non-tender Diagnosis, Assessment Plan Diagnosis, Assessment Plan Assessment: nml progress Plan: routine care, discharge tomorro w, increase po, ambulate. at 0807 RPT #:[id number] END OF REPORT 2019-05-08 11:12:00-00:00 [facility]) OB Postpart Progr Note REPORT#:[id number] REPORT STATUS: Signed DATE:05/08/19 TIME: 1112 PATIENT: DEBORAH JEAN UNIT #: [id number] ROOM/BED: [address] : 82 AGE: 38 SEX: F ATTEND: Isi Petty MD ADM AUTHOR: Ely Yeh MD * ALL edits or amendments must be made on the [employer]/computer document * Subjective Subjective Admission EGA (wks/days): 36 weeks (36+2) Status/day: post , post operative (d2) Patient reports: Patient reports: Yes: normal lochia, pain management effective, voiding well. Comments: Pt reports decreased appetite, has had small shelly unt flatus this morning Objective General VS: Vital Signs Date Temp Pulse Resp B/P B/P Mean Pulse Ox FiO2 05/07-05/08 98.2-98.8 86-108 18-20 99-111/63-74 75.8-86.1 Last Documented: Result Date Time B/P 99/66 05/08 822 Temp 98.7 05/08 822 Pulse 101 05/08 822 Resp 20 05/08 822 B/P Mean 82.0 05/08 0343 Pulse Ox 96 05/07 0310 Patient Weight Weight (lb): 168 Weight (oz): Weight (kg): 76.204 Physical Exam Abdomen: soft, no abnormal tenderness, no guardi ng, moderate distention Incision site: well approximated edges, dry Uterus: firm Fundus: at the umbilicus Lochia: normal Lower extremities: Edema: trace Diagnosis, Assessment Plan Diagnosis, Assessment Plan Assessment: nml progress, EBL 1200 wi th delivery due to T uterine incision, difficult extraction. VSS, hb 11.5 Plan: routine care, declines circ Comments: in NICU Electronically Signed by Ely Yeh MD on 01/19 at 1114 RPT #:[id number] END OF REPORT 2019-05-07 11:00:00-00:00 [facility] ([facility]) OB Postpart Progr Note REPORT#:[id number] REPORT STATUS: Signed DATE:05/07/19 TIME: 1100 PATIENT: DEBORAH JEAN UNIT #: [id number] ROOM/BED: [address] : 82 AGE: 38 SEX: F ATTEND: Isi Petty MD ADM AUTHOR: Neetu Interiano MD * ALL edits or amendments must be made on the [employer]/computer document * Subjective Subjective Admission EGA (wks/days): 36 weeks (36+2) Status/day: post , post operative (d1) Patient reports: Patient reports: Yes: normal lochia, pain management effective, tolerating po well. No: complaints, bowel movement, nausea, vomiting, ex cessive bleeding. Comments: has not yet ambulated or voided Objective Nursing Documentation Review Nursing data: The data set between the solid lines has been im ported from nursing documentation. Any exceptions have been noted be low under Provider comments. Feeding preference: Provider comments on imported nursing data: [] General VS: Vital Signs Date Temp Pulse Resp B/P B/P Mean Pulse Ox FiO2 05/06-05/07 98.0-98.8 83-97 16-20 98-120/55-73 73.0-82.0 96-97 Last Documented: Result Date Time B/P 100/65 05/07 820 Temp 98.4 05/07 820 Pulse 91 05/07 820 Resp 18 05/07 820 Pulse Ox 96 05/07 0310 B/P Mean 80.0 05/07 0145 Patient Weight Weight (lb): 168 Weight (oz): Weight (kg): 76.204 Physical Exam Lungs: unlabored Neuro: Exam: alert, oriented x3, normal speech Abdomen: soft, no abnormal tenderness, no guardi ng Incision site: well approximated edges, dry Uterus: firm Fundus: at the umbilicus Lochia: normal Lower extremities: Edema: trace Result Findings/data: Laboratory Tests: 05/07 05/07 05/07 05/06 0819 0035 0025 1736 Coagulation PT (10.4 - 12.4 secs) 11.2 PTT (Lucila) (22 - 38 secs) 24.3 Fibrinogen (309 - 518 mg/dL) 350 Hematology WBC (6.6 - 12.1 K/mm3) 14.3 H 12.8 H 10.4 RBC (3.45 - 5.01 M/mm3) 3.71 4.13 4.30 Hgb (10.7 - 13.9 g/dL) 11.5 13.1 13.4 Hct (32.1 - 42.1 %) 34.7 38.4 40.5 MCV (84.1 - 94.8 fL) 94 93 94 MCH (27 - 35 pg) 31.0 31.7 31.2 MCHC (32.2 - 34.1 gm/dL) 33.1 34.1 33.1 RDW (12.4 - 16.5 %) 14.7 14.7 14.7 Plt Count (133 - 385 K/mm3) 127 L 115 L 132 L MPV (9.1 - 12.7 fl) 11.3 11.4 11.6 Neut % (Auto) (56.5 - 79.4 %) 81.8 H 82.8 H 74. 0 Lymph % (Auto) (14.3 - 34.3 %) 10.4 L 10.2 L 13 .6 L [place] % (Auto) (5.1 - 10.4 %) 5.7 3.4 L 7.1 Eos % (Auto) (0.1 - 3.0 %) 0.1 0.2 0.8 Baso % (Auto) (0.1 - 1.0 %) 0.2 0.4 0.4 Neut # (Auto) (K/mm3) 11.7 10.6 7.7 Lymph # (Auto) (K/mm3) 1.5 1.3 1.4 [place] # (Auto) (K/mm3) 0.8 0.4 0.7 Eos # (Auto) (K/mm3) 0.01 0.03 0.08 Baso # (Auto) (K/mm3) 0.0 0.1 0.0 Immature Plt Fraction (0.0 - 10.8 %) 0.0 0.0 0. 0 Serology Treponema pallidum Ab (NONREACTIVE) NONREACTIVE Hep Bs Antigen (NONREACTIVE) NONREACTIVE Hepatitis C Antibody (NONREACTIVE) NONREACTIVE Hep C Ab Signal/Cutoff (<0.80) 0.11 HIV 1 2 Antibody (NONREACTIVE) NONREACTIVE Diagnosis, Assessment Plan Diagnosis, Assessment Plan Assessment: nml progress, EBL 1200 wi th delivery due to T uterine incision, difficult extraction. VSS, hb 11.5 Plan: routine care, declines circ Electronically Signed by Neetu Interiano MD on at 1102 RPT #:[id number] END OF REPORT 2019-05-07 00:00:00-00:00 [id number] [facility] [address] [address] PATIENT NAME: DEBORAH JEAN ADMIT DATE: 05/06/19 ACCOUNT NO: [id number] ROOM NO: [facility] AGE: 38 SEX: F ADMITTING PHYSICIAN: Kailash Petty MD ATTENDING PHYSICIAN: Kailash Petty MD OPERATION DATE: 05/06/2019 PREOPERATIVE DIAGNOSES: This is a 38-year-old G4, P2, at 36 weeks and 2 days of gestation, in labor, with a prior section, for repeat section. POSTOPERATIVE DIAGNOSES: This is a 38-year-old G 4, P2, at 36 weeks and 2 days of gestation, in labor, with a prior se ction, for repeat section. PROCEDURE: Repeat section with T incisi on. ANESTHESIA: Epidural. SURGEON: Ely Yeh MD FREQUENCY CHECKER: Andriy Adler. ESTIMATED BLOOD LOSS: Approximately 1200 mL. FINDINGS: 1. Dense adhesions from the uterus to the anteri or abdominal wall. 2. Omental adhesions to the anterior abdominal w all. 3. Clear fluid. 4. Vigorous male , Apgars 8 and 9, 6 pound s 9 ounces, to level 2. 5. Transverse oblique back down presentation. 6. Transverse incision. 7. Forceps-assisted delivery, infant with asymme tric, grimace noted after delivery on the left. 8. hemorrhage secondary to uterine in cision bleeding. COUNTS: Correct x2. PROCEDURE IN DETAIL: Consents reviewed and quest ions were answered. The patient was then taken back to the operating jarred m. She was placed under epidural anesthesia without complications. She w as then placed in dorsal position, prepped and draped in usual fashion fo r procedures. A Pfannenstiel skin incision made sharply through a prior Pfannenstiel incision and carried down to the fascia with hemostasis b eing achieved using Bovie electrocautery. Fascia was incised in midline an d incision carried out laterally. The fascia was removed from the under lying rectus muscles using sharp and blunt dissection. The rectus m uscle was split sharply in the midline and the peritoneal cavity was entered. PATIENT NAME: DEBORAH JEAN 9 A dense band of adhesion was noted from the ante rior uterus to the anterior abdominal wall. This was taken down with Bovie e lectrocautery and Morel scissors. The rest of the rectus muscles were th en incised. The bladder was noted to be adhesed on the lower uterine segment . This was carried down with blunt dissection and sharp dissection. The oment um was noted to be adhesed to the anterior abdominal wall and a small section of this was taken down with Bovie electrocautery on the left. A horizontal i ncision was then made on the lower uterine segment and it carried up in U-sha pe using bandage scissors. Clear fluid was noted. Upon exploring the uterin e cavity, the fetus was noted to be in a transverse oblique presentation with the back down. On everting the fetus to fermin umer, the cord prolapsed through the incision and the head was very high in the uterine cavity and was not coming down with fundal pressure. Decision was made to T the incision. T he incision was T'd using bandage scissors. The head was still impac rashi in the uterine fundus and decision was made to apply f orceps since the cord was still prolapsed and could not be reduced. The forceps were applied and the head was delivered with gentle traction and fundal pressure. A v igorous male , Apgars 8 and 9, 6 pounds 9 ounces was delivered. The cord was clamped and cut and the was handed to the pediatric nurse. On inspec ting the fetus on the operative field, he was noted to have an asymmetric grima ce on the left hand side. The placenta was removed manually. The uterus was then delivered through the abdomi nal incision and wrapped with moist laparotomy sponge. The edges of the incisi on were grasped with rings to slow blood flow. The vertical incision was then closed first with running locking sutures of 0 Vicryl in 2 layers. Once he mostasis was noted, attention was then turned to the transverse incision, whic h was then closed with running-locking sutures of 0 Vicryl star ting laterally and working towards the midline in 2 separate sutures. Once this had bee n performed, the serosa was closed on the T part of the incision in a baseba ll stitch fashion using 0 chromic. Additional mattress sutures of 2-0 Vicr yl were used to achieve hemostasis in various places on the incision. Once hemostasis was noted at this location, the cul-de-sac was suctioned and irrigated and the uterus was replaced back in the abdominal cavity. The gutters were suctioned a nd irrigated and a clot forming Surgicel was placed along the incision vertically and horizontally a nd under the bladder flap. There was some bleeding noted from an om ental adhesion on the right hand side. This was cross clamped with peons and tied with ties of 0 Vicryl with hemostasis being noted and the omentum was tucked behind th e uterus out of the operative field. The hysterotomy again was reinspected and noted to be hemostatic. A running stitch of #1 chromic was then used to cl ose the peritoneum and the muscles in one suture. The rectus muscle s were hemostatic. The fascia was then closed with running stitch of 0 Vicryl starting laterally and working towards the midline in 2 separate sutures. Subcutaneous tissues were ir rigated and closed with running stitch of 2-0 plain gut. Skin was closed with running subcuticular s titch of 3-0 Monocryl. Dermabond was placed. The patient was cleaned an d draped to the recovery room in good condition. Dictated By: Ely Yeh MD WT: OP:F.YARA/MERRY/RUDY PATIENT NAME: DEBORAH JEAN 81 Conf#: [id number]/DID#: [id number] Authenticated by Ely Yeh MD On 05/30/2019 09:11:31 AM Electronically Signed by Ely Yeh MD on at 0911 PATIENT NAME: DEBORAH JEAN 9 2019-05-06 23:44:00-00:00 [facility]) OB Delivery Note REPORT#:[id number] REPORT STATUS: Signed DATE:05/06/19 TIME: 2343 PATIENT: DEBORAH JEAN UNIT #: [id number] [facility] AGE: 38 SEX: F ATTEND: Isi Petty MD ADM AUTHOR: Ely Yeh MD * ALL edits or amendments must be made on the el [employer]/computer document * OB Delivery Pre-delivery Admission EGA (wks/days): 36 weeks (36+2) Baby A Information Baby A information Delivery date: 05/06/19 status: live born Wt of baby: not yet available (6#9oz) Gender: male 1 minute: 8 5 minutes: 9 Presentation: transverse/oblique back down Op/Inv Proc Note - Brief )( Procedure(s) performed: , T incision )( Primary Surgeon: Ely Yeh )( Mica Plate Layer(s): Andriy Adler )( Pre-procedure diagnosis: 38yo @36+2 in labor with prior for repeat )( Post-procedure diagnosis: same Anesthesia: epidural anesthesia )( Estimated blood loss (ml): 1200 )( Finding(s): 1.dense adhesions uterus to anterior abdominal w all 2.omental adhesions to anterior abdominal wall 3.clear fluid 4.male inf ant 8/9 6#9oz to level 2 5.transverse/oblique back do wn 6. T incision 7.forceps assisted delivery, infant with assymetric grimace note d after delivery on left 8.PPH secondary to uterine incisions Dictation number: [id number] Blood Loss/Details Blood loss at delivery: >/= 1000 ml - pp hemorr Cause: uterine laceration Management: suture/repair EBL (ml's): 1200 Electronically Signed by Ely Yeh MD on 12/19 at 0001 RPT #:[id number] END OF REPORT 2019-05-06 20:39:00-00:00 [facility] ([facility]) OB Admission / H P REPORT#:[id number] REPORT STATUS: Signed DATE:05/06/19 TIME: 2038 PATIENT: DEBORAH JEAN UNIT #: [id number] ROOM/BED: [facility] : 82 AGE: 38 SEX: F ATTEND: Isi Petty MD ADM AUTHOR: Ely Yeh MD * ALL edits or amendments must be made on the el [employer]/computer document * OB Admission H P Hx Chief complaint: uterine contractions HPI: 38yo @36+2 with prior cs x1 presents with re gular painful contractions history: : 4 Term: 2 Living children: 2 Previous : low uterine trans incis Number of prev : 1 Indication for prior : abnormal FHR tra cing Current : EDC: 06/01/19 Admission EGA (wks/days): 36 weeks (36+2) Labs: Blood type: O Rh: positive Rubella: immune Hepatitis B: negative HIV: negative STD: negative Syphilis: currently negative GBS: negative Genetic testing: NIPT low risk Past medical history: denies PMH Past surgical history: Social history: no alcohol use, no tobacco use, no drug use Medications: vitamins Allergies Coded Allergies: No Known Allergies (05/06/19) Objective General VS: Laboratory Tests: 05/06 1736 Hematology WBC (6.6 - 12.1 K/mm3) 10.4 RBC (3.45 - 5.01 M/mm3) 4.30 Hgb (10.7 - 13.9 g/dL) 13.4 Hct (32.1 - 42.1 %) 40.5 MCV (84.1 - 94.8 fL) 94 MCH (27 - 35 pg) 31.2 MCHC (32.2 - 34.1 gm/dL) 33.1 RDW (12.4 - 16.5 %) 14.7 Plt Count (133 - 385 K/mm3) 132 L MPV (9.1 - 12.7 fl) 11.6 Neut % (Auto) (56.5 - 79.4 %) 74.0 Lymph % (Auto) (14.3 - 34.3 %) 13.6 L [place] % (Auto) (5.1 - 10.4 %) 7.1 Eos % (Auto) (0.1 - 3.0 %) 0.8 Baso % (Auto) (0.1 - 1.0 %) 0.4 Neut # (Auto) (K/mm3) 7.7 Lymph # (Auto) (K/mm3) 1.4 [place] # (Auto) (K/mm3) 0.7 Eos # (Auto) (K/mm3) 0.08 Baso # (Auto) (K/mm3) 0.0 Immature Plt Fraction (0.0 - 10.8 %) 0.0 Last Documented: Result Date Time B/P Mean 73.0 05/06 1730 B/P 106/55 05/06 173 Temp 98.6 05/06 1730 Pulse 97 05/06 1730 Resp 16 05/06 173 Vital Signs Date Temp Pulse Resp B/P B/P Mean Pulse Ox FiO2 05/06 98.6-98.8 83-97 16-18 106-112/55-63 73.0- 81.0 Patient Weight Weight (lb): 168 Weight (oz): Weight (kg): 76.204 Physical Exam Abdomen: gravid, soft Uterine activity: Monitor: toco Cervical/ exam: Dilatation (cm): 0 - closed Effacement (%): 50 station: - 2 presentation: cephalic Membranes: Membranes: Intact Lower extremities: Edema: trace Diagnosis, Assessment Plan Diagnosis, Assessment Plan Free Text A P: 38yo @36+2 in early labor, plan to proceed w ith repeat . Electronically Signed by Ely Yeh MD on 11/19 at 2044 RPT #:[id number] END OF REPORT
[2023-04-02 15:39] LABS: Absolute Lymphocytes (CBC) 2.1 K/uL (0.7-4.9); Hematocrit 42.7 % (36.0-45.0); Lymphocytes % 25.3 % (15.3-44.8); MCV 88.2 fL (80-100); MPV 8.7 fL (7.6-11.3); Platelets 210 thou/uL (152-406); RBC Red Blood Cell Count 4.84 M/uL (3.86-4.86)
[2023-04-02] MEDS ORDERED: ASPIRIN 81 MG CHEWABLE TABLET ONE (15:43)
[2023-04-02 15:54] LABS: Potassium 3.2 mEq/L (3.5-5.1); Troponin High Sensitivity 3.5 pg/mL (<58.9)
[2023-04-02 16:15] LABS: SARS-CoV-2 Antigen Rapid Res Negative (Negative)
--- NOTE | 2023-04-02 16:38 | RAD REPORT ---
EXAM DESCRIPTION: Jone Single View04/02/2023 3:22 pm CLINICAL HISTORY: CHEST PAIN COMPARISON: No comparisons TECHNIQUE: Portable AP view of the chest. FINDINGS: The lungs are clear. No pneumothorax or effusion. The cardiomediastinal contours are unre markable. IMPRESSION: No acute cardiopulmonary process.
--- NOTE | 2023-04-02 17:07 | EDPHYS ---
Physician Documentation [facility] Name: Janay Penaloza Age: 42 yrs Sex: Female : 1980 Arrival Date: 04/02/2023 Time: 14:55 Bed 18 Private MD: ED Physician Moises Barry HPI: 04/02 15:13 This 42 yrs old Female presents to ER via Ambulatory with complaints of Flu ms3 Symptoms, bodyaches, fatigue, chest pain. 15:13 42-year-old female with past medical history of depression and kidney stones presents ms3 for feeling bad that began on March 18. Patient states she is having ear pain, body aches, fatigue, chest pain. Patient states the chest pain began yesterday. Patient describes her discomfort as moderate. Patient denies alleviating or inciting factors.. Historical: - Allergies: 15:09 No Known Allergies; ap3 - PMHx: 15:09 Depression; Kidney stones; ap3 - Immunization history:: Client reports receiving the 2nd dose of the Covid vaccine. - Social history:: Smoking status: Patient denies any tobacco usage or history of. ROS: 15:13 Constitutional: Negative for fever, and chills. Neck: Negative for injury, pain, and ms3 swelling, Respiratory: Negative for shortness of breath, cough, wheezing, and pleuritic chest pain. 15:13 MS/Extremity: Negative for injury and deformity, Skin: Negative for injury, rash, and discoloration. 15:13 Constitutional: Positive for chills. 15:13 Cardiovascular: Positive for chest pain. 15:13 All other systems are negative. Exam: 15:13 Constitutional: This is a well developed, well nourished patient who is awake, alert, ms3 and in no acute distress. Head/Face: Normocephalic, atraumatic. Neck: Trachea midline, no cervical lymphadenopathy. Supple, full range of motion without nuchal rigidity, or vertebral point tenderness. No Meningismus. Chest/axilla: Normal chest wall appearance and motion. Nontender with no deformity. Cardiovascular: Regular rate and rhythm with a normal S1 and S2. No gallops, murmurs, or rubs. Normal PMI, no JVD. No pulse deficits. Respiratory: Lungs have equal breath sounds bilaterally, clear to auscultation and percussion. No rales, rhonchi or wheezes noted. No increased work of breathing, no retractions or nasal flaring. Abdomen/GI: Soft, non-tender, with normal bowel sounds. No distension or tympany. No guarding or rebound. No evidence of tenderness throughout. Skin: Warm, dry with normal turgor. Normal color with no rashes, no lesions, and no evidence of cellulitis. MS/ Extremity: Pulses equal, no cyanosis. Neurovascular intact. Full, normal range of motion. 15:50 ECG was reviewed by the Attending Physician. ms3 Vital Signs: 15:07 BP 118 / 81; Pulse 83; Resp 18; Temp 97.9; Pulse Ox 100% ; Weight 64.41 kg; Pain 9/10; ap3 16:32 BP 109 / 75; Pulse 77; ll1 17:21 BP 114 / 82; Pulse 78; Resp 20; Pulse Ox 100% ; nj1 15:07 Pain Scale: Adult ap3 MDM: 15:12 Patient medically screened. ms3 15:13 Differential diagnosis: abnormal EKG, acute myocardial infarction, chest wall pain, ms3 pneumonia, pulmonary embolus. Scoring Tools PERC Rule for PE Age > /= 50 No (0) HR > /= 100 No (0) O2 Sat Room Air < 95% No (0) Unilateral leg swelling No (0) Hemoptysis No (0) Recent surgery or trauma </= 4 weeks ago, requiring treatment with General Anesthesia No (0) Prior PE or DVT No (0) Hormone use No (0). 17:06 Data reviewed: vital signs, nurses notes, lab test result(s), EKG, radiologic studies, ms3 and as a result, I will discharge patient. I considered the following discharge prescriptions or medication management in the emergency department Medications were administered in the Emergency Department. See MAR. Independent interpretation of the following test(s) in the Emergency Department EKG: See my EKG interpretation above X-Ray: My interpretation is CXR image reviewed does no show PNA. Counseling: I had a detailed discussion with the patient and/or guardian regarding the historical points, exam findings, and any diagnostic results supporting the discharge/admit diagnosis, lab results, radiology results, the need for outpatient follow up, to return to the emergency department if symptoms worsen or persist or if there are any questions or concerns that arise at home. Special discussion: Based on the patient's history, exam, and Dx evaluation, there is no indication for emergent intervention or inpatient Tx. It is understood by the patient/guardian that if the Sx's persist or worsen they need to return immediately for re-evaluation. ED course: Discussed labs, imaging, EKG with patient. Patient to follow-up with primary care physician in 2 to 3 days. Patient understands and agrees with plan. All questions were answered. Return precautions discussed include worsening symptoms, or any other concerns. On reevaluation patient is alert and oriented x4, no apparent distress, nontoxic-appearing, ambulatory in emergency [employer], speaking full sentences. 21:47 The patient was given aspirin in the Emergency Department. 04/02 15:13 Order name: Basic Metabolic Panel; Complete Time: 16:26 ms3 04/02 15:13 Order name: CBC with Diff; Complete Time: 16:26 ms3 04/02 15:13 Order name: Troponin HS; Complete Time: 16:26 ms3 04/02 15:13 Order name: Flu; Complete Time: 16:26 ms3 04/02 15:13 Order name: SARS RAPID; Complete Time: 16:26 ms3 04/02 15:13 Order name: XRAY Chest (1 view); Complete Time: 16:50 ms3 04/02 15:13 Order name: EKG; Complete Time: 15:14 ms3 04/02 15:13 Order name: Cardiac monitoring; Complete Time: 15:50 ms3 04/02 15:13 Order name: EKG - Nurse/Tech; Complete Time: 15:50 ms3 04/02 15:13 Order name: IV Saline Lock; Complete Time: 15:50 ms3 04/02 15:13 Order name: Labs collected and sent; Complete Time: 15:35 ms3 04/02 15:13 Order name: O2 Per Protocol; Complete Time: 15:35 ms3 04/02 15:13 Order name: O2 Sat Monitoring; Complete Time: 15:35 ms3 EC:50 Rate is 73 beats/min. Rhythm is regular. QRS [place] is Normal. ND interval is normal. QRS ms3 interval is normal. Clinical impression: NSR w/ Non-specific ST/T Changes. Interpreted by me. Reviewed by me. Administered Medications: 15:33 Drug: Aspirin PO Chewable Tablet 324 mg Route: PO; nj1 16:32 Follow up: Response: No adverse reaction ll1 17:52 Drug: Potassium PO Effervescent Tablet 50 mEq Route: PO; nj1 18:01 Follow up: Response: No adverse reaction nj1 Disposition Summary: 04/02/23 17:06 Discharge Ordered Location: Home ms3 Condition: Stable ms3 Diagnosis - Chest pain, unspecified ms3 - Other fatigue ms3 - Myalgia ms3 Followup: ms3 - With: Giovanny Pagan, - When: 2 - 3 days - Reason: Recheck today's complaints Discharge Instructions: - Discharge Summary Sheet nj1 Forms: - Medication Reconciliation Form ms3 - Thank You Letter ms3 - Antibiotic Education ms3 - Prescription Opioid Use ms3 - Patient Portal Instructions ms3 - Leadership Thank You Letter ms3 - Work release form nj1 Signatures: Dispatcher [employer] EDAfshan Hayes RN RN ap3 Moises Barry DO DO ms3 Felisha Mendoza RN RN nj1 Wesly Ludwig RN 1
--- NOTE | 2023-04-02 17:07 | ER ---
Nurse's Notes [facility] Name: Janay Penaloza Age: 42 yrs Sex: Female : 1980 Arrival Date: 04/02/2023 Time: 14:55 Bed 18 Private MD: Diagnosis: Chest pain, unspecified;Other fatigue;Myalgia Presentation: 04/02 15:07 Chief complaint: Patient states: she has been sick since 03/18/23, and she is starting ap3 to feel worse as of yesterday. patient reports body aches, chest discomfort, headache and fatigue. Coronavirus screen: Client presents with at least one sign or symptom that may indicate coronavirus-19. Ebola Screen: No symptoms or risks identified at this time. Initial Sepsis Screen: Does the patient meet any 2 criteria? No. Patient's initial sepsis screen is negative. Does the patient have a suspected source of infection? No. Patient's initial sepsis screen is negative. Risk Assessment: Do you want to hurt yourself or someone else? Patient reports no desire to harm self or others. Onset of symptoms was March 18, 2023. 15:07 Method Of Arrival: Ambulatory ap3 15:12 Acuity: VERNON 3 ap3 Triage Assessment: 15:10 General: Appears ill, Behavior is calm, cooperative, appropriate for age. General: ap3 Reports feeling ill for fatigue for. Pain: Complains of pain in chest. Neuro: Level of Consciousness is awake, alert, obeys commands, Oriented to person, place, time, situation, Appropriate for age. Cardiovascular: Patient's skin is warm and dry. Respiratory: Airway is patent Respiratory effort is even, unlabored, Respiratory pattern is regular, symmetrical. Historical: - Allergies: 15:09 No Known Allergies; ap3 - PMHx: 15:09 Depression; Kidney stones; ap3 - Immunization history:: Client reports receiving the 2nd dose of the Covid vaccine. - Social history:: Smoking status: Patient denies any tobacco usage or history of. Screenin:10 [facility] ED Fall Risk Assessment (Adult) History of falling in the last 3 months, ap3 including since admission No falls in past 3 months (0 pts). Abuse screen: Denies threats or abuse. Nutritional screening: No deficits noted. Tuberculosis screening: No symptoms or risk factors identified. Assessment: 15:35 Reassessment: Patient appears in no apparent distress at this time. Patient and/or nj1 family updated on plan of care and expected duration. Pain level reassessed. Patient is alert, oriented x 3, equal unlabored respirations, skin warm/dry/pink. 16:32 Reassessment: No changes from previously documented assessment. Patient and/or family ll1 updated on plan of care and expected duration. Pain level reassessed. Patient is alert, oriented x 3, equal unlabored respirations, skin warm/dry/pink. 16:54 Reassessment: No changes from previously documented assessment. Dr. Barry at . ll1 17:30 Reassessment: Patient appears in no apparent distress at this time. Patient and/or nj1 family updated on plan of care and expected duration. Pain level reassessed. Patient is alert, oriented x 3, equal unlabored respirations, skin warm/dry/pink. Patient states feeling better. Patient states symptoms have improved. Vital Signs: 15:07 BP 118 / 81; Pulse 83; Resp 18; Temp 97.9; Pulse Ox 100% ; Weight 64.41 kg; Pain 9/10; ap3 16:32 BP 109 / 75; Pulse 77; ll1 17:21 BP 114 / 82; Pulse 78; Resp 20; Pulse Ox 100% ; nj1 15:07 Pain Scale: Adult ap3 ED Course: 14:57 Patient arrived in ED. rg4 15:00 Moises Barry DO is Attending Physician. ms3 15:09 Triage completed. ap3 15:10 Arm band placed on right wrist. ap3 15:24 XRAY Chest (1 view) In Process Unspecified. EDMS 15:24 Felisha Mendoza, STUART is Primary Nurse. nj1 15:35 Patient has correct armband on for positive identification. Bed in low position. Call nj1 light in reach. Provided Education on: fall precautions, call light. 15:50 SARS RAPID Sent. bc6 15:50 Flu Sent. bc6 15:50 Basic Metabolic Panel Sent. bc6 15:50 Troponin HS Sent. bc6 15:50 Inserted saline lock: 22 gauge in right antecubital area, using aseptic technique. bc6 Blood collected. 17:02 Giovanny Pagan DO is Referral Physician. ms3 18:03 No provider procedures requiring assistance completed. IV discontinued, intact, nj1 bleeding controlled. Administered Medications: 15:33 Drug: Aspirin PO Chewable Tablet 324 mg Route: PO; nj1 16:32 Follow up: Response: No adverse reaction ll1 17:52 Drug: Potassium PO Effervescent Tablet 50 mEq Route: PO; nj1 18:01 Follow up: Response: No adverse reaction nj1 Medication: 15:10 VIS not applicable for this client. ap3 Outcome: 17:06 Discharge ordered by . ms3 18:04 Discharged to home ambulatory. nj1 18:04 Condition: improved 18:04 Discharge instructions given to patient, Instructed on discharge instructions, follow up and referral plans. Demonstrated understanding of instructions, follow-up care. 18:05 Patient left the ED. nj1 Signatures: Dispatcher [employer] EDMS Irene Engle rg4 Afshan Zavala RN RN ap3 Wesly Ludwig RN RN ll1 Moises Barry DO DO ms3 Анна Winston bc6 Felisha Mendoza RN RN nj1 Corrections: (The following items were deleted from the chart) 15:12 15:07 Acuity: VERNON 4 ap3 ap3
[2023-04-02] MEDS ORDERED: POTASSIUM 25 MEQ EFFERV TAB ONE (17:58)
[2023-04-02 19:41] VITALS: TEMP 97.9; O2SAT 100
[2023-04-02 19:47] VITALS: BP 114/82
--- NOTE | 2023-04-03 15:23 | EKG ---
Test Date: 2023-04-02 Test Time: 15:47:19 Critical Care Unit Nurse: TANIA MEASUREMENT RESULTS: Intervals: Rate: 73 WA: 148 QRSD: 90 QT: 354 QTc: 389 [place]: P: 36 WA: 148 QRS: 44 T: 13 INTERPRETIVE STATEMENTS: Normal sinus rhythm Nonspecific T wave abnormality Abnormal ECG Compared to ECG 10/03/2019 20:11:10 Possible ischemia no longer present T-wave abnormality still present Electronically Signed On 04-03-23 15:20:58 CDT by Jesus Gilman
== END 2023-04-02 18:05 | disposition home or self-care (01) ==
LOC: ER 14:55
DX: R07.89 Other chest pain (principal); R53.83 Other fatigue; M79.10 Myalgia, unspecified site; Z20.822 Contact with and (suspected) exposure to COVID-19
CPT/HCPCS: 36415; 71045; 80048; 84484; 85025; 87804; 87811; 93005; 99284